=== PATIENT | male | born 1970 | race Caucasian/White ===

== ENCOUNTER 2020-09-24 18:21 | Emergency (ER) | payer MEDICAID, SELFPAY ==
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
[2020-09-24 18:24] VITALS: BP 85/68; PULSE 118; RESP 24; O2SAT 95; BMI 29.2
[2020-09-24 18:28] VITALS: BP 108/65; PULSE 110; O2SAT 94
[2020-09-24] MEDS: Morphine Sulfate 4 MG/ML CARTRIDGE IVPUSH (18:30)
[2020-09-24] MEDS: iohexoL 350 MG/ML 100 ML INFUS..BTL IV (18:41)
[2020-09-24] MEDS: 0.9 % Sodium Chloride 1,000 ML 999 ML IVCONT ×2 (18:44→19:40)
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
[2020-09-24] MEDS: ondansetron HCL 4 MG/2 ML VIAL IVPUSH (19:31)
[2020-09-24 19:32] VITALS: BP 95/48; PULSE 97; RESP 14; O2SAT 95
[2020-09-24] MEDS: Piperacillin Sodium/Tazobactam 3.375 GM in 0.9 % Sodium Chloride 50 ML IV (19:50)
[2020-09-24] MEDS: Diphth,Pertus(ACell),Tet Adult 0.5 ML SYRINGE IM (19:57)
[2020-09-24 20:00] VITALS: BP 112/70; PULSE 87; RESP 19; O2SAT 94
[2020-09-24 20:32] LABS: COVID-19 Test Negative (Negative)
--- NOTE | 2020-09-24 20:34 | PC.NURSE ---
This RN attempted report to [facility] x 4. This RN called [phone] x 2 and was transferred to appropriate number. After transfer, automated message stating this transfer was unsuccessful prior to automatically disconnecting call. This RN called [phone] x 2 which was the direct number given by a company secretary who answered the previous number which was a busy signal. Charge Tamar Dolan RN aware.
== END 2020-09-24 20:25 | disposition short-term general hospital (02) ==
LOC: HO.ED 20:20
PROVIDERS: Emergency Provider Internal Medicine
DX: S31.115A Laceration without foreign body of abdominal wall, periumbilic region without penetration into peritoneal cavity, initial encounter (principal); S31.119A Laceration without foreign body of abdominal wall, unspecified quadrant without penetration into peritoneal cavity, initial encounter; W26.9XXA Contact with unspecified sharp object(s), initial encounter; Y93.9 Activity, unspecified; Y92.9 Unspecified place or not applicable; Y99.9 Unspecified external cause status; Z20.822 Contact with and (suspected) exposure to COVID-19
CPT/HCPCS: 36415; 74177; 87635; 90471; 90715; 96361; 96365; 96375; 99285; J2270; J2405; J2543; Q9967

== ENCOUNTER 2021-01-02 12:26 | Emergency (ER) | payer MEDICAID, SELFPAY ==
[2021-01-02 14:59] VITALS: BP 148/100; PULSE 77; RESP 18; TEMP 37; O2SAT 100; BMI 30.7
--- NOTE | 2021-01-02 15:11 | ED.DENTAL ---
HPI - Dental/Oral General Chief complaint: Dental/Oral Stated complaint: dental pain Time Seen by Provider: 01/02/21 15:11 Source: patient Mode of arrival: ambulatory Limitations: no limitations History of Present Illness HPI Narrative: last night patient developed dental pain, noticed swelling today. Complaint: tooth pain Onset (ago): day(s) Duration: constant Severity: severe Relieving factors: nothing Exacerbating factors: nothing Context: history of dental caries Treatment prior to arrival: none Related Data Previous Rx's Medication Instructions Recorded amoxicillin 875 mg-potassium 1 tab PO BID #20 tab 01/02/21 clavulanate 125 mg tablet (Augmentin) naproxen 500 mg tablet (Naprosyn) 500 mg PO BID #20 tab 01/02/21 Allergies Allergy/AdvReac Type Severity Reaction Status Date / Time No Known Allergies Allergy Verified 09/24/20 18:27 Review of Systems Constitutional: Constitutional: Reports no additional constitutional complaints Eyes: Eyes: Reports no additional eye complaints ENT: Denies dizziness Cardiovascular: Cardiovascular: Reports no additional cardiovascular complaints Respiratory: Respiratory: Reports as per HPI Gastrointestinal: Gastrointestinal: Reports no additional gastrointestinal complaints Musculoskeletal: Musculoskeletal: Reports no additional musculoskeletal complaints Integumentary/Breasts: Skin/Breast: Denies rash Neurologic: Reports system reviewed and no additional complaints, except as documented, Denies dizziness and Denies Sensory deficit (Neuro) Psychiatric: Psychiatric: Denies anxiety PMFSH Past Medical History Medical History No known health problems Social History Social History Advance Directives: No Advance Directives Information Provided: No Physical Exam Vital Signs: Vital Signs: Last Vital Signs Temp 98.6 F 01/02/21 14:59 Pulse 77 01/02/21 14:59 Resp 18 01/02/21 14:59 BP 148/100 H 01/02/21 14:59 Pulse Ox 100 01/02/21 14:59 Body Mass Index 30.7 Const: General: healthy appearing Nutritional Appearance: average body habitus Orientation/consciousness: oriented to person and patient oriented x3 Limitations: no limitations HENMT: Other: no trismus, poor dentition, very tender along gum line but no fluctuance, no airway obstruction Head: Yes normal to inspection Ears: external ears normal General nose exam: Normal external nose present Mouth: Normal oral and palatal mucosa present and oropharynx normal Throat: Yes posterior oropharynx normal Eyes: General: appearance normal, both eyes and all related structures Neck: Other: supple Neck: Yes normal visual inspection Chest: Chest palpation & inspection: normal inspection of the chest Resp: Auscultation: clear to auscultation bilaterally Cardio: Jugular venous distension: no JVD Rate: regular rate Rhythm: regular rhythm Heart sounds: S1 normal heart sound present and S2 normal heart sound present GI: Inspection: Yes normal to inspection Palpation (GI): Soft to palpation, nontender and No hepatosplenomegaly present Auscultation: normal bowel sounds : General: Yes no CVA tenderness Back/Spine/Pelvis: Back: no CVA tenderness Skin: General skin exam: no rashes or lesions noted Neuro: General: oriented to person and patient oriented x3 Cranial nerves: Yes CN's II-XII intact bilaterally Motor exam (neuro): 5/5 motor strength present throughout Sensory Exam: No Sensory deficit (Neuro) Extrem: General: Yes normal to inspection Psych: Appearance: grossly normal Course Reevaluation(s) Reevaluation #1: no fluctuance, nothing to drain, will start oral abx and refer to dentist Time: 15:19 Discharge Plan Discharge Clinical Impression: Toothache, Dental caries, Dental abscess Patient Disposition: Home, Self-Care Instructions: Dental Abscess (ED), Toothache (ED) Prescriptions: New amoxicillin-pot clavulanate [Augmentin] 875-125 mg tablet 1 tab PO BID Qty: 20 RF: 0 naproxen [Naprosyn] 500 mg tablet 500 mg PO BID Qty: 20 RF: 0
[2021-01-02] MEDS: Amoxicillin/Potassium Clav 875 MG TABLET PO (15:25)
[2021-01-02] MEDS: Ketorolac Tromethamine 60 MG/2 ML VIAL IM (15:25)
--- NOTE | 2021-01-02 15:37 | PC.NURSE ---
PT AWAKE, ALERT AND ORIENTED X 3. SKIN WARM AND DRY. RESP UNLABORED. AIRWAY PATENT. SPEAKING IN FULL CLEAR SENTENCES. REPORTS LEFT SIDED DENTAL PAIN WITH FACIAL SWELLING. EVALUATED BY MD SCHAEFER. PLAN IS FOR DC HOME WITH MEDS. PT AWARE AND AGREEABLE TO PLAN.
== END 2021-01-02 15:39 | disposition home or self-care (01) ==
PROVIDERS: Emergency Provider Emergency Medicine
DX: K04.7 Periapical abscess without sinus (principal); K02.9 Dental caries, unspecified
CPT/HCPCS: 96372; 99283; 99284; J1885

== ENCOUNTER 2021-10-28 17:39 | Emergency (ER) | payer MEDICAID, SELFPAY ==
--- NOTE | ~2021-10-28 | CT_ITS ---
EXAMINATION: NONCONTRAST HEAD CT NONCONTRAST CERVICAL SPINE CT INDICATION INFORMATION: Headache. Neck pain. Fall off deck. COMPARISON: None TECHNIQUE: Separate noncontrast CT examinations of the head and cervical spine were performed. Coronal and sagittal images were created for each examination at the technologist workstation. This CT examination was performed using dose optimization techniques as appropriate, variously including the following: *Automated exposure control *Adjustment of mA and/or kV according to patient size (this includes techniques or standardized protocols for targeted exams where dose is matched to indication/reason for exam; i.e. extremities or head) *Use of iterative reconstruction technique DLP: 1453 mGy-cm FINDINGS: Head: There is no evidence of acute intracranial hemorrhage or territorial infarction. No abnormal mass effect or midline shift is seen. Woods to white matter differentiation is well preserved. No extra-axial fluid collections are identified. No hydrocephalus. No significant volume loss. There is no abnormal attenuation within the brain parenchyma. No acute osseous or soft tissue abnormality. The mastoid air cells and visualized portions of the paranasal sinuses are well aerated. Cervical spine: Motion significantly limits the evaluation. The extent of motion makes it such that fracture cannot be assessed. Alignment cannot be assessed. Moderate right-sided pleural effusion is noted. CT/CT head/brain wo con IMPRESSION: 1. No acute intracranial finding. 2. There is significant motion on the cervical spine CT, making this study essentially nondiagnostic. Cannot evaluate for cervical fracture or alignment. 3. Moderate right-sided pleural effusion noted.
--- NOTE | ~2021-10-28 | XR_ITS ---
EXAMINATION: XR CHEST CLINICAL INFORMATION: Trauma COMPARISON: None TECHNIQUE: Frontal view of the chest was obtained. FINDINGS: Lung volumes are low. Bronchial wall thickening noted with streaky basilar opacities. No pleural effusion or pneumothorax. The cardiomediastinal silhouette is within normal limits. No acute osseous abnormality. XR/XR chest 1V IMPRESSION: Low lung volumes with basilar atelectasis. Bronchial wall thickening could be associated with a small airways process. No displaced fractures are seen.
--- NOTE | ~2021-10-28 | CT_ITS ---
EXAMINATION: NONCONTRAST HEAD CT NONCONTRAST CERVICAL SPINE CT INDICATION INFORMATION: Headache. Neck pain. Fall off deck. COMPARISON: None TECHNIQUE: Separate noncontrast CT examinations of the head and cervical spine were performed. Coronal and sagittal images were created for each examination at the technologist workstation. This CT examination was performed using dose optimization techniques as appropriate, variously including the following: *Automated exposure control *Adjustment of mA and/or kV according to patient size (this includes techniques or standardized protocols for targeted exams where dose is matched to indication/reason for exam; i.e. extremities or head) *Use of iterative reconstruction technique DLP: 1453 mGy-cm FINDINGS: Head: There is no evidence of acute intracranial hemorrhage or territorial infarction. No abnormal mass effect or midline shift is seen. Woods to white matter differentiation is well preserved. No extra-axial fluid collections are identified. No hydrocephalus. No significant volume loss. There is no abnormal attenuation within the brain parenchyma. No acute osseous or soft tissue abnormality. The mastoid air cells and visualized portions of the paranasal sinuses are well aerated. Cervical spine: Motion significantly limits the evaluation. The extent of motion makes it such that fracture cannot be assessed. Alignment cannot be assessed. Moderate right-sided pleural effusion is noted. CT/CT cervical spine wo con IMPRESSION: 1. No acute intracranial finding. 2. There is significant motion on the cervical spine CT, making this study essentially nondiagnostic. Cannot evaluate for cervical fracture or alignment. 3. Moderate right-sided pleural effusion noted.
--- NOTE | ~2021-10-28 | CT_ITS ---
EXAMINATION: CT CHEST, ABDOMEN AND PELVIS WITH CONTRAST CLINICAL INFORMATION: Reason for Exam lower back and upper abd pain post Fall off deck COMPARISON: CT abdomen pelvis 09/24/2020 TECHNIQUE: Multidetector volumetric imaging was performed from the thoracic inlet through the pubic symphysis following administration of 85 mL of Omnipaque 350. Sagittal and coronal reformatted images were obtained on the technologist's workstation. This CT examination was performed using dose optimization techniques as appropriate, variously including the following: *Automated exposure control *Adjustment of mA and/or kV according to patient size (this includes techniques or standardized protocols for targeted exams where dose is matched to indication/reason for exam; i.e. extremities or head) *Use of iterative reconstruction technique DLP: 1121 mGy-cm FINDINGS: CHEST: Lungs and Pleura: There is right basilar atelectasis with a moderate right-sided pleural effusion. Mediastinum: The mediastinum is normal. The central vascular structures are unremarkable. No hilar or mediastinal lymphadenopathy. Pericardium/Pleura: There is a moderate size right pleural effusion present Chest Wall/Axilla: There may be multiple right anterolateral rib fractures involving the third through ninth ribs, but assessment is difficult secondary to marked motion artifact. Recommend rib radiographs if this information is clinically important. Moderate-sized right pleural effusion is present. ABDOMEN/PELVIS: Severe motion artifact limits the examination. Peritoneal Space: High density fluid is present in the cul-de-sac consistent with some hemorrhage. Liver, Gallbladder, Biliary Tree: There is a linear area of hypodensity seen in the liver and a liver laceration is suspected. No gross gallbladder abnormality is seen Pancreas: Unremarkable Spleen: Unremarkable Adrenal Glands: Unremarkable Kidneys and Ureters: The kidneys are normal in size, shape, and attenuation. There is marked motion artifact. No hydronephrosis, hydroureter, or calculi seen. No perinephric stranding. Bladder: Unremarkable Gastrointestinal Tract: The small and large bowel are unremarkable. The appendix is unremarkable. Abdominal Wall: No significant hernia is appreciated. Lymph Nodes: No lymphadenopathy. Vascular: There is calcific aortic plaque. No aneurysm or evidence of injury. The IVC appears unremarkable. PELVIC VISCERA: Unremarkable OSSEUS STRUCTURES: See discussion above regarding possible right rib fractures. No other definite fractures are seen. CT/CT abdomen pelvis w con IMPRESSION: 1. Extremely poor quality study with artifact. 2. There is evidence of a liver laceration at the dome of the liver with associated blood in the pelvis. 3. Right-sided rib most likely present with associated probable hemothorax, although the fluid measures water density on this study. This critical result was discussed with Dr. Marshall at 10:00 PM on the day the exam and it was ascertained that the content and urgency of the report was understood at the time of direct communication. Fleischner guidelines were followed.
--- NOTE | ~2021-10-28 | XR_ITS ---
EXAMINATION: XR CHEST CLINICAL INFORMATION: Status post chest tube COMPARISON: Chest radiograph 5:45 PM 10/28/2021, CT chest abdomen pelvis 10/28/2021 8:46 PM TECHNIQUE: Frontal view of the chest was obtained. FINDINGS: Since the prior chest radiograph a right-sided chest tube has been placed. No pneumothorax is seen. Heart size is normal. Rib fractures which were suspected on the prior CT are not confirmed on plain film radiograph as no displaced rib fractures are detected XR/XR chest 1V IMPRESSION: Right-sided chest tube has been placed. No pneumothorax.
[2021-10-28 17:57] LABS: MANUAL DIFF FLAG NO
[2021-10-28 17:59] VITALS: BP 92/59; PULSE 120; RESP 24
[2021-10-28 18:04] VITALS: BP 104/69; PULSE 104; RESP 20; TEMP 36.7; O2SAT 94; BMI 32.3
[2021-10-28 18:05] LABS: Prothrombin Time 11.6 SEC (10.0-13.1)
[2021-10-28 18:08] LABS: Partial Thromboplastin Time 30.5 SEC (26.0-36.4)
[2021-10-28 18:22] LABS: Alanine Aminotransferase 48 U/L (0-40); Albumin Level 4.5 g/dL (3.5-5.0); Alkaline Phosphatase 107 U/L (39-117); Anion Gap 16 (12-20); Aspartate Amino Transferase 75 U/L (5-37); Bilirubin Total 0.6 mg/dL (0.0-1.0); Blood Urea Nitrogen 9 mg/dL (9-16); Calcium 9.4 mg/dL (8.4-10.2); Carbon Dioxide 24 mmol/L (22-29); Chloride 103 mmol/L (96-108); Creatinine Clr Calc Pharmacy 94.1; Estimated Glomerular Filt Rate > 60; Ethanol 99 mg/dL; Glucose Random 142 mg/dL (60-115); Sodium 139 mmol/L (135-145); Total Protein 7.8 g/dL (6.5-8.0)
[2021-10-28] MEDS: Morphine Sulfate 4 MG/ML CARTRIDGE IVPUSH (18:24)
[2021-10-28] MEDS: cefTRIAXone sodium 1 GM in 0.9 % Sodium Chloride 50 ML IV (18:24)
[2021-10-28] MEDS: Diphth,Pertus(ACell),Tet Adult 0.5 ML SYRINGE IM (18:25)
[2021-10-28] MEDS: 0.9 % Sodium Chloride 1,000 ML 999 ML IV ×2 (18:26→21:15)
[2021-10-28 18:28] LABS: Basophils Percent Auto 0.2 % (0-2); Eosinophils Percent Auto 0.2 % (0-4); Hematocrit 41.1 % (42.0-52.0); Hemoglobin 13.5 g/dl (14.0-18.0); Imm Gran Abs Auto 0.12 X10*3/uL (0.00-0.03); Imm Gran Pct Auto 0.8 % (0.0-0.4); Lymphocytes Absolute Auto 1.5 X10*3/uL (1.2-4.9); Lymphocytes Percent Auto 10.4 % (20-40); Mean Corpuscular HGB Conc 32.8 g/dl (31.0-36.0); Mean Corpuscular Hemoglobin 28.9 pg (27.0-33.0); Mean Platelet Volume 8.6 fL (9.4-12.4); Monocytes Absolute Auto 0.6 X10*3/uL (0.1-1.2); Monocytes Percent Auto 4.1 % (2-11); Neutrophils Absolute Auto 12.2 x10*3/uL (2.0-8.3); Neutrophils Percent Auto 84.3 % (45-73); Platelet Count 316 X10*3/uL (160-400); Red Blood Count 4.67 X10*6/uL (4.60-5.80); Red Cell Distribution Width 12.4 % (11.0-16.0); White Blood Count 14.5 X10*3/uL (4.8-10.8)
[2021-10-28 18:35] VITALS: BP 100/64; PULSE 91; RESP 26; O2SAT 96
--- NOTE | 2021-10-28 18:36 | PC.NURSE ---
attempted to go to CT, unable to tolerate procedure due to inability to lay flat. Medicated with pain med, will reattempt. Denies pain when sitting up. Speaking in full sentences, skin w/d/p
[2021-10-28] MEDS: Midazolam HCl/PF 2 MG/2 ML VIAL IVPUSH ×3 (18:59→21:25)
[2021-10-28] MEDS: HYDROmorphone HCl 2 MG/ML VIAL IVPUSH (19:37)
[2021-10-28 19:39] VITALS: BP 112/73; PULSE 79; RESP 26; O2SAT 98
--- NOTE | 2021-10-28 20:06 | ED_ITS ---
HPI - General Adult General Chief complaint: Fall <Corey Arriaza MD - Last Filed: 10/28/21 22:24> Stated complaint: Puncture Wound R side <Corey Arriaza MD - Last Filed: 10/28/21 22:24> Time Seen by Provider: 10/28/21 17:52 <Corey Arriaza MD - Last Filed: 10/28/21 22:24> Source: patient <ASHIA Uriostegui - Last Filed: 10/28/21 23:44> Mode of arrival: ambulatory <ASHIA Uriostegui - Last Filed: 10/28/21 23:44> Limitations: no limitations <ASHIA Uriostegui - Last Filed: 10/28/21 23:44> History of Present Illness HPI narrative: 51 yold male presents to the ED for right sided chest wall puncture wound. Patient states he fell off the deck while working and sharp object tool on the ground hit his chest. patient did not have helmet on or loss consciousness. patient denies being stabbed or shot. <ASHIA Uriostegui - Last Filed: 10/28/21 23:44> Related Data Home medications: Previous Rx's Medication Instructions Recorded amoxicillin 875 mg-potassium 1 tab PO BID #20 tabs 01/02/21 clavulanate 125 mg tablet (Augmentin) naproxen 500 mg tablet (Naprosyn) 500 mg PO BID #20 tabs 01/02/21 <Corey Arriaza MD - Last Filed: 10/28/21 22:24> Allergies/adverse reactions: Allergies Allergy/AdvReac Type Severity Reaction Status Date / Time No Known Allergies Allergy Verified 09/24/20 18:27 <Corey Arriaza MD - Last Filed: 10/28/21 22:24> Review of Systems Review of Systems: Chest wall puncture wound <ASHIA Uriostegui - Last Filed: 10/28/21 23:44> PMFSH Past Medical History Medical History: Medical History No known health problems <Corey Arriaza MD - Last Filed: 10/28/21 22:24> Social History Social History: Social History Advance Directives: No Advance Directives Information Provided: No <Corey Arriaza MD - Last Filed: 10/28/21 22:24> Physical Exam ED Vital Signs: Vital Signs - 24 hr 10/28/21 17:59 10/28/21 18:04 10/28/21 18:35 Temperature 98.0 F Pulse Rate 120 H 104 H 91 Respiratory Rate 24 H 20 26 H Blood Pressure 92/59 L 104/69 100/64 Pulse Oximetry 94 96 Oxygen Delivery Method Room Air Nasal Cannula Oxygen Flow Rate 3 10/28/21 19:39 10/28/21 21:08 10/28/21 21:36 Temperature Pulse Rate 79 103 H 107 H Respiratory Rate 26 H 25 H 24 H Blood Pressure 112/73 132/75 138/72 Pulse Oximetry 98 97 94 Oxygen Delivery Method Nasal Cannula Nasal Cannula Nasal Cannula Oxygen Flow Rate 3 4 5 BMI result Body Mass Index 32.3 <Corey Arriaza MD - Last Filed: 10/28/21 22:24> Vital Signs - 24 hr 10/28/21 17:59 10/28/21 18:04 10/28/21 18:35 Temperature 98.0 F Pulse Rate 120 H 104 H 91 Respiratory Rate 24 H 20 26 H Blood Pressure 92/59 L 104/69 100/64 Pulse Oximetry 94 96 Oxygen Delivery Method Room Air Nasal Cannula Oxygen Flow Rate 3 10/28/21 19:39 10/28/21 21:08 10/28/21 21:36 Temperature Pulse Rate 79 103 H 107 H Respiratory Rate 26 H 25 H 24 H Blood Pressure 112/73 132/75 138/72 Pulse Oximetry 98 97 94 Oxygen Delivery Method Nasal Cannula Nasal Cannula Nasal Cannula Oxygen Flow Rate 3 4 5 BMI result Body Mass Index 32.3 <ASHIA Uriostegui - Last Filed: 10/28/21 23:44> Const General: cooperative, healthy appearing, comfortable, no acute distress, well developed and alert <ASHIA Uriostegui - Last Filed: 10/28/21 23:44> Orientation/consciousness: patient oriented x3 <ASHIA Uriostegui - Last Filed: 10/28/21 23:44> HENMT Head: Yes normal to inspection, Yes No palpable skull fracture present, Yes normocephalic, Yes atraumatic and No abrasion <ASHIA Uriostegui Last Filed: 10/28/21 23:44> Eyes General: appearance normal, both eyes and all related structures <ASHIA Uriostegui Last Filed: 10/28/21 23:44> Neck Neck: Yes normal visual inspection, Yes full ROM, Yes no lymphadenopathy, Yes no meningeal signs, Yes trachea midline, Yes supple, No anterior neck swelling and No tender <ASHIA Uriostegui - Last Filed: 10/28/21 23:44> Chest Chest/axillae images: 1. puncture wound. <Corey Arriaza MD - Last Filed: 10/28/21 22:24> 1. puncture wound. <ASHIA Uriostegui - Last Filed: 10/28/21 23:44> Resp Effort & Inspection: normal respiratory effort and able to speak in complete sentences <ASHIA Uriostegui Last Filed: 10/28/21 23:44> Auscultation: diminished lung sounds on the right <ASHIA Uriostegui Last Filed: 10/28/21 23:44> Cardio Jugular venous distension: no JVD <ASHIA Uriostegui Last Filed: 10/28/21 23:44> Heart sounds: S1 normal heart sound present and S2 normal heart sound present <ASHIA Uriostegui Last Filed: 10/28/21 23:44> GI Inspection: Yes normal to inspection and No abdominal wall ecchymosis <ASHIA Uriostegui Last Filed: 10/28/21 23:44> Palpation (GI): Soft to palpation, not firm, nontender, no guarding and not rigid <ASHIA Uriostegui Last Filed: 10/28/21 23:44> Other: patient refuse to take off his pants <ASHIA Uriostegui Last Filed: 10/28/21 23:44> General: No CVA tenderness and Yes no CVA tenderness <ASHIA Uriostegui - Last Filed: 10/28/21 23:44> Back/Spine/Pelvis Other: negative for signs of trauma <ASHIA Uriostegui Last Filed: 10/28/21 23:44> Back: no CVA tenderness, No CVA tenderness and No back tenderness <ASHIA Uriostegui Last Filed: 10/28/21 23:44> Skin Other: right chest wall puncture wound <ASHIA Uriostegui Last Filed: 10/28/21 23:44> General skin exam: no rashes or lesions noted and elasticity normal <ASHIA Uriostegui Last Filed: 10/28/21 23:44> Neuro General: patient oriented x3, no meningeal signs and CN's II-XI intact bilaterally <ASHIA Uriostegui Last Filed: 10/28/21 23:44> Cranial nerves: Yes CN's II-XII intact bilaterally <ASHIA Uriostegui Last Filed: 10/28/21 23:44> Extrem Other: no obvious signs of trauma. REfuse to take pants off <ASHIA Uriostegui Last Filed: 10/28/21 23:44> General: Yes normal to inspection and Yes full ROM <ASHIA Uriostegui Last Filed: 10/28/21 23:44> Psych Appearance: grossly normal, well kempt and not disheveled <ASHIA Uriostegui Last Filed: 10/28/21 23:44> Course Course Course Narrative: Due to this being a trauma. imaging was ordered wiht IV contrast without labs to rule out any internal organ injuries. Ches4t xray ordered. patient plac ed on oxygen for 0s saturation of 92%. FLuids, ceftraixone, and tdap ordered <ASHIA Uriostegui Last Filed: 10/28/21 23:44> Reevaluation(s) Reevaluation #1: patent refused CT scan imaging many times due to back pain. Patient informed importance of imgaging to evaluate extense of injuries. Patient delaying his care.Patient kept changing story of trauma Pateitn given ativan, morphine, and dilaudid. Patient next given ketamine for Imaging. Dr. Pozo recommend patient be transferred to main ED. Wet read of neck CT shows upper chest which showed fluid chich could mean Hemthorax. Dr. Arriaza made aware and assumed CAre of case for possible chest tube <ASHIA Uriostegui Last Filed: 10/28/21 23:44> Time: 20:15 <ASHIA Uriostegui Last Filed: 10/28/21 23:44> Reevaluation #2: [address] [address] [address] Scan Report Signed Patient: Huy Brown MR#: [id number] : 1970 Acct:[id number] Age/Sex: 51 / M ADM Date: 10/28/21 Loc: HO.ED Attending Dr: Ordering Physician: Apolinar Jason Date of Service: 10/28/21 Procedure(s): CT head/brain wo con Accession Number(s): [id number] cc: Apolinar Jason~ EXAMINATION: NONCONTRAST HEAD CT NONCONTRAST CERVICAL SPINE CT INDICATION INFORMATION: Headache. Neck pain. Fall off deck. COMPARISON: None TECHNIQUE: Separate noncontrast CT examinations of the head and cervical spine were performed. Coronal and sagittal images were created for each examination at the technologist workstation. This CT examination was performed using dose optimization techniques as appropriate, variously including the following: *Automated exposure control *Adjustment of mA and/or kV according to patient size (this includes techniques or standardized protocols for targeted exams where dose is matched to indication/reason for exam; i.e. extremities or head) *Use of iterative reconstruction technique DLP: 1453 mGy-cm FINDINGS: Head: There is no evidence of acute intracranial hemorrhage or territorial infarction. No abnormal mass effect or midline shift is seen. Woods to white matter differentiation is well preserved. No extra-axial fluid collections are identified. No hydrocephalus. No significant volume loss. There is no abnormal attenuation within the brain parenchyma. No acute osseous or soft tissue abnormality. The mastoid air cells and visualized portions of the paranasal sinuses are well aerated. Cervical spine: Motion significantly limits the evaluation. The extent of motion makes it such that fracture cannot be assessed. Alignment cannot be assessed. Moderate right-sided pleural effusion is noted. CT/CT head/brain wo con IMPRESSION: ? 1. No acute intracranial finding. 2. There is significant motion on the cervical spine CT, making this study essentially nondiagnostic. Cannot evaluate for cervical fracture or alignment. 3. Moderate right-sided pleural effusion noted. ? <ASHIA Uriostegui - Last Filed: 10/28/21 23:44> Procedures Chest Tube Chest Tube 1: Chest Tube Location: right and anterior axillary line <Corey Arriaza MD - Last Filed: 10/28/21 22:24> Size of Tube (cm): 28 <Corey Arriaza MD - Last Filed: 10/28/21 22:24> Chest Tube Prep: Yes betadine prep and sterile drapes applied <Corey Arriaza MD - Last Filed: 10/28/21 22:24> Local Anesthetic: lidocaine 2% <Corey Arriaza MD - Last Filed: 10/28/21 22:24> Amount of anesthesia used (mL): 10 <Corey Arriaza MD - Last Filed: 10/28/21 22:24> Incision Made With: #11 blade <Corey Arriaza MD - Last Filed: 10/28/21 22:24> Post Procedure: sutured to skin and sterile dressing applied <Corey Arriaza MD - Last Filed: 10/28/21 22:24> Tube Drainage: blood <Corey Arriaza MD - Last Filed: 10/28/21 22:24> Amount of initial drainage (mL): 700 <Corey Arriaza MD - Last Filed: 10/28/21 22:24> Post Procedure CXR?: Yes <Corey Arriaza MD - Last Filed: 10/28/21 22:24> Patient Tolerated Procedure: Yes <Corey Arriaza MD - Last Filed: 10/28/21 22:24> Procedural Sedation Indication: other <Corey Arriaza MD - Last Filed: 10/28/21 22:24> Presedation Evaluation: Chest tube placed <Corey Arriaza MD - Last Filed: 10/28/21 22:24> ASA Class: I <Corey Arriaza MD - Last Filed: 10/28/21 22:24> Mallampati Class: I <Corey Arriaza MD - Last Filed: 10/28/21 22:24> Preparation: [employer] applied, pulse oximeter, capnometry used and supplemental O2 applied <Corey Arriaza MD - Last Filed: 10/28/21 22:24> Midazolam dose (mg): 2 <Corey Arriaza MD - Last Filed: 10/28/21 22:24> Ketamine: IM <Corey Arriaza MD - Last Filed: 10/28/21 22:24> Ketamine dose (mg): 200 <Corey Arriaza MD - Last Filed: 10/28/21 22:24> IV Propofol dose (mg): 200 <Corey Arriaza MD - Last Filed: 10/28/21 22:24> Patient Tolerated Procedure: well <Corey Arriaza MD - Last Filed: 10/28/21 22:24> Complications: none <Corey Arriaza MD - Last Filed: 10/28/21 22:24> Interventions: oxygen applied <Corey rAriaza MD - Last Filed: 10/28/21 22:24> Medical Decision Making MDM Narrative Medical decision making narrative: 1950: Patient status post fall about 15 ft onto a [place] on the right chest patient came with laceration about 1 in in the right 4th rib area in anterior axillary line complaining of shortness of breath increased pain chest x-ray showed mild pleural effusion CT C-spine done which showed pleural effusion likely hemothorax patient unable to lay flat getting a CT chest ultrasound of the right lung showed pleural effusion likely pneumothorax plan for chest tube. Patient saturating 98% at this time case discussed with thoracic surgeon no thoracic surgeon available at [facility] will get the CT chest and plan for transfer to [facility] 20:40: Chest CT showed moderate amount of R hemothorax , report is pending plan for CT chest tube placement 21:00 patient is status post right chest tube placement about 700 cc of blood drained case discussed with trauma surgeon Dr. Ceballos at [facility] accepted the patient for transfer. 22:15 radialologist called about the CT scan report patient had 6-7 cm laceratrion with peritoneal fluid along with right hemothorax Dr. Ceballos was informed <Corey Arriaza MD - Last Filed: 10/28/21 22:24> Lab Data Lab results reviewed: Yes I reviewed the patient's lab results. <Corey Arriaza MD - Last Filed: 10/28/21 22:24> Result diagrams: : 10/28/21 17:55 10/28/21 17:55 <Corey Arriaza MD - Last Filed: 10/28/21 22:24> Labs: Lab Results 10/28/21 10/28/21 10/28/21 Range/Units 17:55 17:55 17:55 WBC 14.5 H (4.8-10.8) X10*3/uL RBC 4.67 (4.60-5.80) X10*6/uL Hgb 13.5 L (14.0-18.0) g/dl Hct 41.1 L (42.0-52.0) % MCV 88.0 (80.0-98.0) fL MCH 28.9 (27.0-33.0) pg MCHC 32.8 (31.0-36.0) g/dl RDW 12.4 (11.0-16.0) % Plt Count 316 (160-400) X10*3/uL MPV 8.6 L (9.4-12.4) fL Immature Gran % (Auto) 0.8 H (0.0-0.4) % Neut % (Auto) 84.3 H (45-73) % Lymph % (Auto) 10.4 L (20-40) % [place] % (Auto) 4.1 (2-11) % Eos % (Auto) 0.2 (0-4) % Baso % (Auto) 0.2 (0-2) % Lymph # (Auto) 1.5 (1.2-4.9) X10*3/uL [place] # (Auto) 0.6 (0.1-1.2) X10*3/uL Eos # (Auto) 0.0 (0.0-0.4) X10*3/uL Baso # (Auto) 0.0 (0.0-0.2) X10*3/uL Abs Immat Gran (auto) 0.12 H (0.00-0.03) X10*3/uL Absolute Neuts (auto) 12.2 H (2.0-8.3) x10*3/uL Absolute Nucleated RBC 0.000 (0.0-0.012) X10*3/uL Nucleated RBC % (auto) 0.0 (0.0-0.2) /100WBC PT 11.6 (10.0-13.1) SEC INR 1.0 (0.9-1.1) APTT 30.5 (26.0-36.4) SEC Sodium 139 (135-145) mmol/L Potassium 4.0 (3.3-5.1) mmol/L Chloride 103 (96-108) mmol/L Carbon Dioxide 24 (22-29) mmol/L Anion Gap 16 (12-20) BUN 9 (9-16) mg/dL Creatinine 1.10 (0.5-1.4) mg/dL Estim Creat Clear Calc 94.1 Estimated GFR > 60 Random Glucose 142 H (60-115) mg/dL Calcium 9.4 (8.4-10.2) mg/dL Total Bilirubin 0.6 (0.0-1.0) mg/dL AST 75 H (5-37) U/L ALT 48 H (0-40) U/L Alkaline Phosphatase 107 (39-117) U/L Total Protein 7.8 (6.5-8.0) g/dL Albumin 4.5 (3.5-5.0) g/dL Ethyl Alcohol 99 mg/dL COVID-19 (AJ) (Negative) COVID-19 Clin Com 10/28/21 Range/Units 21:39 WBC (4.8-10.8) X10*3/uL RBC (4.60-5.80) X10*6/uL Hgb (14.0-18.0) g/dl Hct (42.0-52.0) % MCV (80.0-98.0) fL MCH (27.0-33.0) pg MCHC (31.0-36.0) g/dl RDW (11.0-16.0) % Plt Count (160-400) X10*3/uL MPV (9.4-12.4) fL Immature Gran % (Auto) (0.0-0.4) % Neut % (Auto) (45-73) % Lymph % (Auto) (20-40) % [place] % (Auto) (2-11) % Eos % (Auto) (0-4) % Baso % (Auto) (0-2) % Lymph # (Auto) (1.2-4.9) X10*3/uL [place] # (Auto) (0.1-1.2) X10*3/uL Eos # (Auto) (0.0-0.4) X10*3/uL Baso # (Auto) (0.0-0.2) X10*3/uL Abs Immat Gran (auto) (0.00-0.03) X10*3/uL Absolute Neuts (auto) (2.0-8.3) x10*3/uL Absolute Nucleated RBC (0.0-0.012) X10*3/uL Nucleated RBC % (auto) (0.0-0.2) /100WBC PT (10.0-13.1) SEC INR (0.9-1.1) APTT (26.0-36.4) SEC Sodium (135-145) mmol/L Potassium (3.3-5.1) mmol/L Chloride (96-108) mmol/L Carbon Dioxide (22-29) mmol/L Anion Gap (12-20) BUN (9-16) mg/dL Creatinine (0.5-1.4) mg/dL Estim Creat Clear Calc Estimated GFR Random Glucose (60-115) mg/dL Calcium (8.4-10.2) mg/dL Total Bilirubin (0.0-1.0) mg/dL AST (5-37) U/L ALT (0-40) U/L Alkaline Phosphatase (39-117) U/L Total Protein (6.5-8.0) g/dL Albumin (3.5-5.0) g/dL Ethyl Alcohol mg/dL COVID-19 (AJ) Negative (Negative) COVID-19 Clin Com See Note <Corey Arriaza MD - Last Filed: 10/28/21 22:24> Lab Results 10/28/21 10/28/21 10/28/21 Range/Units 17:55 17:55 17:55 WBC 14.5 H (4.8-10.8) X10*3/uL RBC 4.67 (4.60-5.80) X10*6/uL Hgb 13.5 L (14.0-18.0) g/dl Hct 41.1 L (42.0-52.0) % MCV 88.0 (80.0-98.0) fL MCH 28.9 (27.0-33.0) pg MCHC 32.8 (31.0-36.0) g/dl RDW 12.4 (11.0-16.0) % Plt Count 316 (160-400) X10*3/uL MPV 8.6 L (9.4-12.4) fL Immature Gran % (Auto) 0.8 H (0.0-0.4) % Neut % (Auto) 84.3 H (45-73) % Lymph % (Auto) 10.4 L (20-40) % [place] % (Auto) 4.1 (2-11) % Eos % (Auto) 0.2 (0-4) % Baso % (Auto) 0.2 (0-2) % Lymph # (Auto) 1.5 (1.2-4.9) X10*3/uL [place] # (Auto) 0.6 (0.1-1.2) X10*3/uL Eos # (Auto) 0.0 (0.0-0.4) X10*3/uL Baso # (Auto) 0.0 (0.0-0.2) X10*3/uL Abs Immat Gran (auto) 0.12 H (0.00-0.03) X10*3/uL Absolute Neuts (auto) 12.2 H (2.0-8.3) x10*3/uL Absolute Nucleated RBC 0.000 (0.0-0.012) X10*3/uL Nucleated RBC % (auto) 0.0 (0.0-0.2) /100WBC PT 11.6 (10.0-13.1) SEC INR 1.0 (0.9-1.1) APTT 30.5 (26.0-36.4) SEC Sodium 139 (135-145) mmol/L Potassium 4.0 (3.3-5.1) mmol/L Chloride 103 (96-108) mmol/L Carbon Dioxide 24 (22-29) mmol/L Anion Gap 16 (12-20) BUN 9 (9-16) mg/dL Creatinine 1.10 (0.5-1.4) mg/dL Estim Creat Clear Calc 94.1 Estimated GFR > 60 Random Glucose 142 H (60-115) mg/dL Calcium 9.4 (8.4-10.2) mg/dL Total Bilirubin 0.6 (0.0-1.0) mg/dL AST 75 H (5-37) U/L ALT 48 H (0-40) U/L Alkaline Phosphatase 107 (39-117) U/L Total Protein 7.8 (6.5-8.0) g/dL Albumin 4.5 (3.5-5.0) g/dL Ethyl Alcohol 99 mg/dL COVID-19 (AJ) (Negative) COVID-19 Clin Com 10/28/21 Range/Units 21:39 WBC (4.8-10.8) X10*3/uL RBC (4.60-5.80) X10*6/uL Hgb (14.0-18.0) g/dl Hct (42.0-52.0) % MCV (80.0-98.0) fL MCH (27.0-33.0) pg MCHC (31.0-36.0) g/dl RDW (11.0-16.0) % Plt Count (160-400) X10*3/uL MPV (9.4-12.4) fL Immature Gran % (Auto) (0.0-0.4) % Neut % (Auto) (45-73) % Lymph % (Auto) (20-40) % [place] % (Auto) (2-11) % Eos % (Auto) (0-4) % Baso % (Auto) (0-2) % Lymph # (Auto) (1.2-4.9) X10*3/uL [place] # (Auto) (0.1-1.2) X10*3/uL Eos # (Auto) (0.0-0.4) X10*3/uL Baso # (Auto) (0.0-0.2) X10*3/uL Abs Immat Gran (auto) (0.00-0.03) X10*3/uL Absolute Neuts (auto) (2.0-8.3) x10*3/uL Absolute Nucleated RBC (0.0-0.012) X10*3/uL Nucleated RBC % (auto) (0.0-0.2) /100WBC PT (10.0-13.1) SEC INR (0.9-1.1) APTT (26.0-36.4) SEC Sodium (135-145) mmol/L Potassium (3.3-5.1) mmol/L Chloride (96-108) mmol/L Carbon Dioxide (22-29) mmol/L Anion Gap (12-20) BUN (9-16) mg/dL Creatinine (0.5-1.4) mg/dL Estim Creat Clear Calc Estimated GFR Random Glucose (60-115) mg/dL Calcium (8.4-10.2) mg/dL Total Bilirubin (0.0-1.0) mg/dL AST (5-37) U/L ALT (0-40) U/L Alkaline Phosphatase (39-117) U/L Total Protein (6.5-8.0) g/dL Albumin (3.5-5.0) g/dL Ethyl Alcohol mg/dL COVID-19 (AJ) Negative (Negative) COVID-19 Clin Com See Note <ASHIA Uriostegui - Last Filed: 10/28/21 23:44> Imaging Data CT scan - head: Radiologist's impression: [place] [address] CT Scan Report Signed Patient: Huy Brown MR#: [id number] : 1970 Acct:[id number] Age/Sex: 51 / M ADM Date: 10/28/21 Loc: HO.ED Attending Dr: Ordering Physician: Apolinar Jason Date of Service: 10/28/21 Procedure(s): CT head/brain wo con Accession Number(s): [id number] cc: Apolinar Jason~ EXAMINATION: NONCONTRAST HEAD CT NONCONTRAST CERVICAL SPINE CT INDICATION INFORMATION: Headache. Neck pain. Fall off deck. COMPARISON: None TECHNIQUE: Separate noncontrast CT examinations of the head and cervical spine were performed. Coronal and sagittal images were created for each examination at the technologist workstation. This CT examination was performed using dose optimization techniques as appropriate, variously including the following: *Automated exposure control *Adjustment of mA and/or kV according to patient size (this includes techniques or standardized protocols for targeted exams where dose is matched to indication/reason for exam; i.e. extremities or head) *Use of iterative reconstruction technique DLP: 1453 mGy-cm FINDINGS: Head: There is no evidence of acute intracranial hemorrhage or territorial infarction. No abnormal mass effect or midline shift is seen. Woods to white matter differentiation is well preserved. No extra-axial fluid collections are identified. No hydrocephalus. No significant volume loss. There is no abnormal attenuation within the brain parenchyma. No acute osseous or soft tissue abnormality. The mastoid air cells and visualized portions of the paranasal sinuses are well aerated. Cervical spine: Motion significantly limits the evaluation. The extent of motion makes it such that fracture cannot be assessed. Alignment cannot be assessed. Moderate right-sided pleural effusion is noted. CT/CT head/brain wo con IMPRESSION: ? 1. No acute intracranial finding. 2. There is significant motion on the cervical spine CT, making this study essentially nondiagnostic. Cannot evaluate for cervical fracture or alignment. 3. Moderate right-sided pleural effusion noted. ? Dictated By: Hubert Martin MD Signed By: <Electronically signed by Hubert Martin MD in OV> <Corey Arriaza MD - Last Filed: 10/28/21 22:24> Chest x-ray: Radiologist's impression: [address] [address] XRay Report Signed Patient: Huy Brown MR#: [id number] : 1970 Acct:[id number] Age/Sex: 51 / M ADM Date: 10/28/21 Loc: HO.ED Attending Dr: Ordering Physician: Alecia Evans MD Date of Service: 10/28/21 Procedure(s): XR chest 1V Accession Number(s): [id number] cc: Alecia Evans MD~ EXAMINATION: XR CHEST CLINICAL INFORMATION: Trauma COMPARISON: None TECHNIQUE: Frontal view of the chest was obtained. FINDINGS: Lung volumes are low. Bronchial wall thickening noted with streaky basilar opacities. No pleural effusion or pneumothorax. The cardiomediastinal silhouette is within normal limits. No acute osseous abnormality. XR/XR chest 1V IMPRESSION: Low lung volumes with basilar atelectasis. Bronchial wall thickening could be associated with a small airways process. No displaced fractures are seen. ? Dictated By: Hubert Martin MD Signed By: <Electronically signed by Hubert Martin MD in OV> 10/28/21 1805 DD/ 51 <Corey Arriaza MD - Last Filed: 10/28/21 22:24> CT scan - chest: Radiologist's impression: [place] [id number] [place] [address] CT Scan Report Signed Patient: Huy Brown MR#: [id number] : 1970 Acct:[id number] Age/Sex: 51 / M ADM Date: 10/28/21 Loc: HO.ED Attending Dr: Ordering Physician: Apolinar Jason Date of Service: 10/28/21 Procedure(s): CT abdomen pelvis w con Accession Number(s): [id number] cc: Apolinar Jason~ EXAMINATION: CT CHEST, ABDOMEN AND PELVIS WITH CONTRAST CLINICAL INFORMATION: Reason for Exam lower back and upper abd pain post Fall off deck COMPARISON: CT abdomen pelvis 09/24/2020 TECHNIQUE: Multidetector volumetric imaging was performed from the thoracic inlet through the pubic symphysis following administration of 85 mL of Omnipaque 350. Sagittal and coronal reformatted images were obtained on the technologist's workstation. This CT examination was performed using dose optimization techniques as appropriate, variously including the following: *Automated exposure control *Adjustment of mA and/or kV according to patient size (this includes techniques or standardized protocols for targeted exams where dose is matched to indication/reason for exam; i.e. extremities or head) *Use of iterative reconstruction technique DLP: 1121 mGy-cm FINDINGS: CHEST: Lungs and Pleura: There is right basilar atelectasis with a moderate right-sided pleural effusion. Mediastinum: The mediastinum is normal. The central vascular structures are unremarkable. No hilar or mediastinal lymphadenopathy. Pericardium/Pleura: There is a moderate size right pleural effusion present Chest Wall/Axilla: There may be multiple right anterolateral rib fractures involving the third through ninth ribs, but assessment is difficult secondary to marked motion artifact. Recommend rib radiographs if this information is clinically important. Moderate-sized right pleural effusion is present. ABDOMEN/PELVIS: Severe motion artifact limits the examination. Peritoneal Space: High density fluid is present in the cul-de-sac consistent with some hemorrhage. Liver, Gallbladder, Biliary Tree: There is a linear area of hypodensity seen in the liver and a liver laceration is suspected. No gross gallbladder abnormality is seen Pancreas: Unremarkable Spleen: Unremarkable Adrenal Glands: Unremarkable Kidneys and Ureters: The kidneys are normal in size, shape, and attenuation. There is marked motion artifact. No hydronephrosis, hydroureter, or calculi seen. No perinephric stranding. Bladder: Unremarkable Gastrointestinal Tract: The small and large bowel are unremarkable. The appendix is unremarkable. Abdominal Wall: No significant hernia is appreciated. Lymph Nodes: No lymphadenopathy. Vascular: There is calcific aortic plaque. No aneurysm or evidence of injury. The IVC appears unremarkable. PELVIC VISCERA: Unremarkable OSSEUS STRUCTURES: See discussion above regarding possible right rib fractures. No other definite fractures are seen. CT/CT abdomen pelvis w con IMPRESSION: 1.? Extremely poor quality study with artifact. 2.? There is evidence of a liver laceration at the dome of the liver with associated blood in the pelvis. 3.? Right-sided rib most likely present with associated probable hemothorax, although the fluid measures water density on this study. ? This critical result was discussed with Dr. Marshall at 10:00 PM on the day the exam and it was ascertained that the content and urgency of the report was understood at the time of direct communication. ? Fleischner guidelines were followed. Dictated By: Raghavendra Au MD Signed By: <Electronically signed by Raghavendra Au MD in OV> 10/28/213 DD/ 03 TD/TT:? Claims Auditor: SS <Corey Arriaza MD - Last Filed: 10/28/21 22:24> Critical Care Time Critical Care Time Critical Care Time: Yes <Corey Arriaza MD - Last Filed: 10/28/21 22:24> Total Critical Care Time: 90 <Corey Arriaza MD - Last Filed: 10/28/21 22:24> Attestation: I spent 90 minutes of critical care, with interventions, assessments, speaking to patient, consultants, and family. <Corey Arriaza MD - Last Filed: 10/28/21 22:24> Discharge Plan Discharge Clinical Impression: Hemothorax on right, Trauma, Fracture, ribs, Liver laceration <Corey Arriaza MD - Last Filed: 10/28/21 22:24> Patient Disposition: [facility] <Corey Arriaza MD - Last Filed: 10/28/21 22:24> Transfer Details: Right hemothorax status post chest tube placement [facility] Dr. Dannie Ceballos MD <Corey Arriaza MD - Last Filed: 10/28/21 22:24> Right hemothorax status post chest tube placement [facility] Dr. Dannie Ceballos MD <ASHIA Uriostegui - Last Filed: 10/28/21 23:44> Prescriptions: No Action amoxicillin-pot clavulanate [Augmentin] 875-125 mg tablet 1 tab PO BID Qty: 20 0RF naproxen [Naprosyn] 500 mg tablet 500 mg PO BID Qty: 20 0RF <Corey Arriaza MD - Last Filed: 10/28/21 22:24>
[2021-10-28] MEDS: Ketamine HCl 500 MG/5 ML VIAL 200 MG IM (20:13)
[2021-10-28] MEDS: propofoL 200 MG/20 ML VIAL 100 MG IVPUSH (20:46)
[2021-10-28] MEDS: iohexoL 350 MG/ML 100 ML INFUS..BTL IV (20:58)
[2021-10-28 21:08] VITALS: BP 132/75; PULSE 103; RESP 25; O2SAT 97
[2021-10-28] MEDS: fentaNYL citrate/PF 100 MCG/2 ML VIAL IVPUSH (21:21)
[2021-10-28] MEDS: Haloperidol Lactate 5 MG/ML VIAL IM (21:31)
[2021-10-28 21:36] VITALS: BP 138/72; PULSE 107; RESP 24; O2SAT 94
[2021-10-28 22:00] LABS: COVID-19 Test Negative (Negative); IDNOW Serial# 9DB6401D
--- NOTE | 2021-10-29 01:57 | PC.NURSE ---
Assumed care of this pt. at appx. 1999. Pt. was unable to obtain CT scan by previous nurse x4. Medicated pt. with 200mg IM Ketamine x1. Pt. became increasingly aggressive and uncooperative with staff, refusing to sit down in bed but almost falling over. Sat pt. down and brought to CT scan where he became increasingly uncooperative, thrashing and attempting to kick at staff. Per MD Joanna, 50mcg of IVP Propofol administered with respiratory at bedside because pt. did not have an artifical airway established. Attempted again to obtain CT unsuccessfully. Another 50mcg IVP Propofol per MD. CT scan obtained. Pt. continued to be aggressive and threatening towards staff after CT. Moved pt. back to room with MD Joanna and MD Nathan at bedside to place chest tube. Pt. continued to be restless, aggressive, threatening and uncooperative despite many attempts at redirection from multiple staff members. Security at bedside and respiratory therapist remains at bedside. Pt. on 4L NC sats 95%. 50mcg Propofol x2 administered to pt. by MD Joanna with minimal effect. IM Haldol 5mg administered with minimal effect, pt. continues with aggressive behavior and attempting to remove chest tube. 2mg Versed x2 administered. Chest tube placed with appx. 700cc nelida red blood out immediately. Transport called and pt. to be transported to trauma at [facility]. Report called to receiving RN at [facility]. 100mcg Fentanyl, 2mg additional Versed and 50mcg additional Propofol administered to pt. by MD Joanna prior to transport for continued aggressive and restless behavior. Report called to [facility], pt. transported out via EMS, stable, chest tube capped for transport, in place and functioning properly. COVID negative.
[2021-10-29 02:13] VITALS: BP 132/83; PULSE 112; RESP 22; O2SAT 64
[2021-10-29] MEDS: propofoL 200 MG/20 ML VIAL 100 MG IVPUSH ×2 (02:13→02:15)
[2021-10-29 02:15] VITALS: BP 144/74; PULSE 110; RESP 20; O2SAT 95
== END 2021-10-28 21:30 | disposition short-term general hospital (02) ==
PROVIDERS: Physician Assistant; Emergency Provider Internal Medicine
DX: S27.1XXA Traumatic hemothorax, initial encounter (principal); S21.131A Puncture wound without foreign body of right front wall of thorax without penetration into thoracic cavity, initial encounter; S27.0XXA Traumatic pneumothorax, initial encounter; S36.114A Minor laceration of liver, initial encounter; S30.811A Abrasion of abdominal wall, initial encounter; S22.43XA Multiple fractures of ribs, bilateral, initial encounter for closed fracture; R06.02 Shortness of breath; R07.89 Other chest pain; J90 Pleural effusion, not elsewhere classified; R51.9 Headache, unspecified; M54.2 Cervicalgia; W01.111A Fall on same level from slipping, tripping and stumbling with subsequent striking against power tool or machine, initial encounter; Y93.9 Activity, unspecified; Y92.007 Garden or yard of unspecified non-institutional (private) residence as the place of occurrence of the external cause; Y99.9 Unspecified external cause status; Z79.899 Other long term (current) drug therapy; Z20.822 Contact with and (suspected) exposure to COVID-19
CPT/HCPCS: 32551; 36415; 70450; 71045; 71260; 72125; 74177; 80053; 82077; 85025; 85610; 85730; 87635; 90471; 90715; 96361; 96365; 96372; 96375; 96376; 99285; J0696; J1170; J2250; J2270; J3010; Q9967

== ENCOUNTER 2023-12-16 04:58 | Emergency (ER) | payer MEDICAID, SELFPAY ==
[2023-12-16 05:00] VITALS: BP 137/92; PULSE 94; RESP 14; O2SAT 90
--- NOTE | 2023-12-16 05:00 | ED_ITS ---
HPI - Altered Mental Status General Chief Complaint: Altered Mental Status Stated Complaint: Unresponsive Time Seen by Provider: 12/16/23 05:00 Source: patient and other ([facility] staff) Mode of arrival: wheelchair Limitations: altered mental status History of Present Illness ED Provider: Dr. Ruiz HPI narrative: Patient was on the admission floor of [facility] with his who is a surgical patient. He is on methadone and was found unresponsive with pinpoint pupils. complaint: altered mental status Onset (ago): minute(s) Related Data Previous Rx's ?Medication ?Instructions ?Recorded amoxicillin 875 mg-potassium 1 tab PO BID #20 tabs 01/02/21 clavulanate 125 mg tablet (Augmentin) naproxen 500 mg tablet (Naprosyn) 500 mg PO BID #20 tabs 01/02/21 Allergies Allergy/AdvReac Type Severity Reaction Status Date / Time No Known Allergies Allergy Verified 12/16/23 05:13 Review of Systems Review of Systems: Yes Unobtainable due to mental status Neurologic: Denies Sensory deficit (Neuro) [facility] Past Medical History Medical History No known health problems Social History Social History Smoked in Last 30 Days: Yes Use of substances other than those prescribed or required for medical reasons: Yes Substance Use Type: Crack/Cocaine Substance Use Frequency: Chronic Longstanding Advance Directives: No Advance Directives Information Provided: No Do you have a plan to hurt others: No Plan Physical Exam ED Vital Signs: Vital Signs - 24 hr 12/16/23 05:00 12/16/23 05:16 Temperature 98.4 F Pulse Rate 94 92 Respiratory Rate 14 18 Blood Pressure 137/92 H 159/96 H Pulse Oximetry 90 L 95 Oxygen Delivery Method Room Air Room Air BMI result Body Mass Index 309.6 Const Other: Male looking older than stated age, unresponsive, drooling, O2 sat 85% on room air Nutritional Appearance: average body habitus Limitations: altered mental status HENMT Head: Yes normal to inspection Ears: external ears normal General nose exam: Normal external nose present Mouth: Normal oral and palatal mucosa present and oropharynx normal Throat: Yes posterior oropharynx normal Eyes Other: pin point pupils Neck Neck: Yes normal visual inspection Chest Chest palpation & inspection: normal inspection of the chest Resp Auscultation: clear to auscultation bilaterally Cardio Jugular venous distension: no JVD Rate: regular rate Rhythm: regular rhythm Heart sounds: S1 normal heart sound present and S2 normal heart sound present GI Inspection: Yes normal to inspection Palpation (GI): Soft to palpation, nontender and No hepatosplenomegaly present Auscultation: normal bowel sounds General: Yes no CVA tenderness Back/Spine/Pelvis Back: no CVA tenderness Skin General skin exam: no rashes or lesions noted Neuro Cranial nerves: Yes CN's II-XII intact bilaterally Motor exam (neuro): 5/5 motor strength present throughout Sensory Exam: No Sensory deficit (Neuro) Extrem General: Yes normal to inspection Psych Other: unresponsive Course Reevaluation(s) Reevaluation #1: patient received .2mg of narcan and woke up. Denies shooting states he might have taken too much methadone. Time: 06:30 Medications Administered Discontinued Medications Generic Name Dose Route Start Last Admin Trade Name Robertq PRN Reason Stop Dose Admin Naloxone HCl 0.2 mg 12/16/23 05:00 12/16/23 05:06 Naloxone Hcl 0.4 Mg/Ml Vial IVPUSH 12/16/23 05:01 0.2 mg STAT STA Administration Medical Decision Making Differential Diagnosis Differential Diagnoses: The differential diagnosis associated with the presentation includes (opiate overdose, cerebral bleed, seizure) Admission/Observation Consideration of admission/observation: Escalation of care including admission/observation considered (upon arrival patient considered for admission.) Independent Historian Clinical information obtained from an independent historian. History obtained from or confirmed by: Other (NSA and security) Tests considered The following testing was considered but not selected: Head CT considered but patient woke up after the .2mg of narcan Chronic Conditions Patient?s care impacted by: Other (polysubstance abuse) Discharge Plan Discharge Clinical Impression: Opiate overdose Patient Disposition: Home, Self-Care Instructions: Opioid Use Disorder (ED) Prescriptions: No Action amoxicillin-pot clavulanate [Augmentin] 875-125 mg tablet 1 tab PO BID Qty: 20 0RF naproxen [Naprosyn] 500 mg tablet 500 mg PO BID Qty: 20 0RF Referrals: [place],[facility] [Primary Care Provider] - 3 days Print Language: Persian
[2023-12-16] MEDS: Naloxone HCl 0.4 MG/ML VIAL 0.2 MG IVPUSH (05:06)
--- NOTE | 2023-12-16 05:09 | MHC.EDTECH ---
ALL BELONGINGS TAKEN TO DECON BY SECURITY. GLASSES AT BEDSIDE.
[2023-12-16 05:11] VITALS: BMI 309.6
[2023-12-16 05:16] VITALS: BP 159/96; PULSE 92; RESP 18; TEMP 36.9; O2SAT 95
[2023-12-16 06:49] VITALS: BP 159/96; PULSE 92; RESP 18; TEMP 36.9; O2SAT 95
== END 2023-12-16 06:50 | disposition home or self-care (01) ==
PROVIDERS: Emergency Provider Emergency Medicine
DX: T40.2X1A Poisoning by other opioids, accidental (unintentional), initial encounter (principal); R40.4 Transient alteration of awareness; Y92.230 Patient room in hospital as the place of occurrence of the external cause; F55.8 Abuse of other non-psychoactive substances; F11.20 Opioid dependence, uncomplicated; F17.210 Nicotine dependence, cigarettes, uncomplicated
CPT/HCPCS: 99283; 99284; J2310

== ENCOUNTER 2024-01-19 17:59 | Inpatient (IN) | payer OTHER, SELFPAY ==
--- NOTE | ~2024-01-19 | XR_ITS ---
EXAMINATION: XR KNEE, LEFT CLINICAL INFORMATION: Weakness. Pain. COMPARISON: None available. TECHNIQUE: Four views of the left knee. FINDINGS: Moderate to severe lateral compartment joint space narrowing. Mild patellofemoral and medial compartment joint space narrowing. Prominent tricompartmental marginal osteophytes. No acute fracture or dislocation. No concerning lytic or blastic osseous lesion. No significant joint effusion. XR/XR knee LT 4V IMPRESSION: Moderate to severe lateral as well as mild medial and patellofemoral compartment osteoarthritis. Electronically signed by: Adam Maria MD 01/22/2024 09:44 AM EDT
[2024-01-19 18:32] VITALS: BMI 30.4
[2024-01-19 18:33] VITALS: BP 112/63; PULSE 66; RESP 18; TEMP 36.6; O2SAT 96
[2024-01-19 20:00] VITALS: BP 147/79; PULSE 78; RESP 16; TEMP 36.6; O2SAT 97
[2024-01-19] MEDS: OLANZapine 5 MG TABLET PO ×3 (20:19→23:13)
[2024-01-19] MEDS: LORazepam 1 MG TABLET PO ×2 (20:19→21:41)
[2024-01-19] MEDS: Gabapentin 300 MG CAPSULE PO (21:41)
[2024-01-19] MEDS: traZODone HCL 50 MG TABLET PO ×2 (21:48→23:13)
--- NOTE | 2024-01-19 22:24 | PC.NURSE ---
HOSPITALIST NOTIFIED OF NEED TO EVALUATE CHEEK
[2024-01-19] MEDS: hydrOXYzine HCL 25 MG TABLET PO (23:13)
--- NOTE | 2024-01-20 02:44 | PC.ADMIT ---
admitted at 1820 on 01/19/24. t/w assumed care at 1940. patient was at [facility] and referred to [facility] after assessment by their crisis team. legal: CV. dx: depressive d/o. GERRY. reported SI/HI thoughts at time of crisis assessment. reports HX of hospitalization at [facility] in the past. reports after DC from the hospital ''I was on a waiting list for providers-but that never happened'' reports he is also a consumer there and utilizes the methadone clinic. per records from [facility] last dose administered was 01/18 and given 110 mg of methadone. endorses alcohol use and has been placed on a CIWA scale. reports ''mild AH'' and currently denies SI reporting ''feeling safe in the hospital'' endorses racing thoughts. poor sleep. feels as if he'd like to ''get away from [place], there is nothing here for me but trouble'' Hx of SI attempts, trauma and has a limited support system. ALCARAZ + for methadone, fentanyl and cocaine. has started to engage in treatment.
[2024-01-20] MEDS: OLANZapine 5 MG TABLET PO ×3 (05:01→21:08)
[2024-01-20] MEDS: Acetaminophen 325 MG TABLET 650 MG PO ×3 (05:02→23:10)
--- NOTE | 2024-01-20 06:11 | PC.NURSE ---
methadone-release signed for Lesley Romero. Last dose verified. needs MD order to continue.
--- NOTE | 2024-01-20 07:20 | PC.ADMIT ---
Addendum entered by Brenda Hernandez RN 01/20/24 07:22: L side face. reports ingrown hair. Original Note: continued-medical issues-L sided knee/leg pain. gait disturbance noted. reports HX of w/d seizures.
--- NOTE | 2024-01-20 07:44 | HE.PHANOTE ---
Addendum entered by Ely Deluna RPh 01/20/24 08:30: original methadone verification sheet done incorrectly, recieved second sheet from nursing. Last dose was 01/19/24 @0900 per [facility] documentation, [facility] records also sent over with last dose verified from medical record. Original Note: ALISSON GIBBONS RN sent methadone maintenance clinic verification form to pharmacy. Patient was confirmed to be last dosed with 110 mg on 01/15/24 with MIRAV[facility] [id number]
[2024-01-20 08:30] VITALS: BP 115/57; PULSE 72; RESP 16; TEMP 36.6; O2SAT 94
[2024-01-20] MEDS: LORazepam 1 MG TABLET PO ×4 (08:34→23:10)
[2024-01-20] MEDS: Gabapentin 300 MG CAPSULE PO ×3 (08:34→21:08)
[2024-01-20 09:07] LABS: Estimated Average Glucose 103 mg/dL; Hemoglobin A1C 113.4407 umol/L; Hemoglobin A1c % 5.2 % (<6.0); Total Hemoglobin (HGBA1C) 3392.1655 umol/L
[2024-01-20 09:32] LABS: Alanine Aminotransferase 71 U/L (0-40); Albumin Level 4.1 g/dL (3.5-5.0); Alkaline Phosphatase 95 U/L (39-117); Anion Gap 12 (12-20); Aspartate Amino Transferase 36 U/L (5-37); Bilirubin Total 0.2 mg/dL (0.0-1.0); Blood Urea Nitrogen 17 mg/dL (9-16); Calcium 9.7 mg/dL (8.4-10.2); Carbon Dioxide 27 mmol/L (22-29); Chloride 105 mmol/L (96-108); Cholesterol 165 mg/dL (<200); Creatinine Clr Calc Pharmacy 123.4; Estimated Glomerular Filt Rate > 60; Glucose Fasting 107 mg/dL (60-99); HDL Cholesterol 40 mg/dL (>40); LDL Cholesterol Calculated 87 mg/dL (<100); Sodium 140 mmol/L (135-145); Total Protein 7.4 g/dL (6.5-8.0); Triglycerides 191 mg/dL (<150)
[2024-01-20] MEDS: methADONE HCl 20 MG/2 ML ORAL.CONC 110 MG PO (09:41)
[2024-01-20] MEDS: Nicotine Polacrilex 2 MG GUM 4 MG BUCCAL ×3 (11:16→23:13)
[2024-01-20] MEDS: Nicotine 21 MG PATCH.TD24 TRANSDERMA (11:17)
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
[2024-01-20] MEDS: Lidocaine 4 % Patch ADH..PATCH 1 PATCH TRANSDERMA (16:27)
[2024-01-20] MEDS: hydrOXYzine HCL 25 MG TABLET PO (16:35)
[2024-01-20 20:00] VITALS: BP 127/83; PULSE 16; TEMP 36.9; O2SAT 94
[2024-01-20] MEDS: traZODone HCL 50 MG TABLET PO (21:08)
[2024-01-21 07:00] VITALS: BMI 31.6
[2024-01-21] MEDS: methADONE HCl 20 MG/2 ML ORAL.CONC 110 MG PO (07:53)
[2024-01-21] MEDS: LORazepam 1 MG TABLET PO ×3 (08:36→20:52)
[2024-01-21] MEDS: Gabapentin 300 MG CAPSULE PO ×3 (08:37→20:52)
[2024-01-21] MEDS: Lidocaine 4 % Patch ADH..PATCH 1 PATCH TRANSDERMA (08:37)
[2024-01-21 10:23] VITALS: BP 108/60; PULSE 83; TEMP 37.1; O2SAT 94
--- NOTE | 2024-01-21 13:37 | MHC.RECOVRN ---
AUDIT-C Brief Intervention Pt had positive screen for unhealthy alcohol use on admission. Attempted to meet with pt to discuss alcohol use and offer resources, pt declined.
[2024-01-21] MEDS: Nicotine Polacrilex 2 MG GUM 4 MG BUCCAL ×2 (14:36→20:52)
--- NOTE | 2024-01-21 18:42 | HO.PSYCHPN ---
Subjective Subjective Date of Service: 01/21/24 Reason For Visit: Depression Subjective Notes: Conditional Voluntary Healthcare Proxy: No Guardianship: No Medical Problems Affecting Mental Status: No Interim History: Continues with sedation. Reports L knee pain. Will get xray and possible ortho consult. Team question need for a walker. Describes sx 01/06, however difficult to discuss with pt d/t sedation. Spending time sleeping today. Medication Compliance: Yes Side effects from medications: Yes (Sedation) Attending Groups: No Review of Systems L Knee pain Medical Review of Systems: unchanged Review of Systems Review of Systems L knee pain Mental Status Exam Mental Status Exam Patient Appearance: Fatigued and Disheveled Patient Orientation: Person, Place and Situation Level of Consciousness: Sedated Patient Behavior: Sedated, Avoidant, Isolative and Poor Eye Contact Mood Description: Withdrawn, Depressed and Flat Affect Description: Flat Patient Cognition Impaired: No Ability to Follow Directions: Fair Speech Pattern: Impoverished and Spontaneous Speech Memory Description: Remote Impaired Hallucinations: Auditory Delusions: Present Thought Process: Rumination and Slowed Thinking Thought Content: positive for Perseveration, positive for Slowed Thinking, positive for Suicidal Ideation and positive for Homicidal Ideation Depressive Symptoms: Sleeping More Than Usual, Hopelessness, Unhappiness (overwhelmed with issues he states), Thoughts of /Suicide and Low Self Esteem Judgement: Fair Diagnostics Vital Signs (24Hr): Vital Signs - 24 hr 01/20/24 20:00 01/21/24 10:23 Temperature 98.4 F 98.7 F Pulse Rate 16 L 83 Blood Pressure 127/83 108/60 Pulse Oximetry 94 94 Oxygen Delivery Method Room Air Room Air BMI result Body Mass Index 31.6 Labs 01/20/24 08:49 Labs: Laboratory Results - last 48 hr 01/20/24 08:49 Sodium 140 Potassium 4.0 Chloride 105 Carbon Dioxide 27 Anion Gap 12 BUN 17 H Creatinine 0.82 Estim Creat Clear Calc 123.4 Estimated GFR > 60 Fasting Glucose 107 H Estimat Average Glucose 103 Hemoglobin A1c % 5.2 Calcium 9.7 Total Bilirubin 0.2 AST 36 ALT 71 H Alkaline Phosphatase 95 Total Protein 7.4 Albumin 4.1 Triglycerides 191 H Cholesterol 165 LDL Cholesterol, Calc 87 HDL Cholesterol 40 L TSH 1.90 Medications Medications Current Medications Acetaminophen (Acetaminophen 325 Mg Tablet) 650 mg PO Q6H PRN PRN Reason: Headache/Pain Mild Scale (1-3) Last Admin: 01/20/24 23:10 Dose: 650 mg Al Hydroxide/Mg Hydroxide (Magnesium Hydrox/Alum Hydrox 30 Ml Oral.Susp) 30 ml PO Q6H PRN PRN Reason: Heartburn/Nausea Gabapentin (Gabapentin 300 Mg Capsule) 300 mg PO TID [facility] Last Admin: 01/21/24 14:36 Dose: 300 mg Hydroxyzine HCl (Hydroxyzine Hcl 25 Mg Tablet) 25 mg PO Q6H PRN PRN Reason: Anxiety Last Admin: 01/20/24 16:35 Dose: 25 mg Lidocaine (Lidocaine 4 % Patch Adh..Patch) 1 patch TRANSDERMA DAILY [facility]; Protocol Last Admin: 01/21/24 08:37 Dose: 1 patch Lorazepam (Lorazepam 1 Mg Tablet) 1 mg PO Q2H PRN PRN Reason: CIWA 6-10 Last Admin: 01/20/24 23:10 Dose: 1 mg Lorazepam (Lorazepam 1 Mg Tablet) 2 mg PO Q2H PRN PRN Reason: CIWA 11 and above Lorazepam (Lorazepam 1 Mg Tablet) 1 mg PO TID [facility] Last Admin: 01/21/24 14:36 Dose: 1 mg Magnesium Hydroxide (Milk Of Magnesia 30 Ml Oral.Susp) 30 ml PO DAILY PRN PRN Reason: Constipation Methadone HCl (Methadone Hcl 20 Mg/2 Ml Oral.Conc) 110 mg PO DAILY@0800 [facility] Last Admin: 01/21/24 07:53 Dose: 110 mg Nicotine (Nicotine 21 Mg Patch.Td24) 21 mg TRANSDERMA DAILY PRN PRN Reason: smoking cessation Last Admin: 01/20/24 11:17 Dose: 21 mg Nicotine Polacrilex (Nicotine Polacrilex 2 Mg Gum) 4 mg BUCCAL Q2H PRN PRN Reason: Nicotine Cravings Last Admin: 01/21/24 14:36 Dose: 4 mg Olanzapine (Olanzapine 5 Mg Tablet) 5 mg PO TID PRN PRN Reason: agitation Last Admin: 01/20/24 11:16 Dose: 5 mg Olanzapine (Olanzapine 5 Mg Tablet) 5 mg PO BEDTIME [facility] Last Admin: 01/20/24 21:08 Dose: 5 mg Trazodone HCl (Trazodone Hcl 50 Mg Tablet) 50 mg PO BEDTIME MRX1 PRN PRN Reason: Insomnia Last Admin: 01/20/24 21:08 Dose: 50 mg Allergies Allergies Allergy/AdvReac Type Severity Reaction Status Date / Time No Known Allergies Allergy Verified 12/16/23 05:13 Assessment & Plan Assessment & Plan (1) Severe recurrent major depression with psychotic features: Status: Acute Code(s): F33.3 - Major depressive disorder, recurrent, severe with psychotic symptoms (2) Alcohol use disorder, severe, dependence: Status: Acute Code(s): F10.20 - Alcohol dependence, uncomplicated (3) Opioid use disorder, severe, on maintenance therapy: Status: Acute Code(s): F11.20 - Opioid dependence, uncomplicated (4) Cocaine use disorder: Status: Acute Code(s): F14.10 - Cocaine abuse, uncomplicated (5) Homeless: Status: Acute Code(s): Z59.00 - Homelessness unspecified Plan Recurrent Major Depression Recurrent with psychotic features, Alcohol, Opiate, Cocaine Use Disorder, Homeless Individual. Plan: Admit, CV, 15 minute checks Collateral contact Continue Gabapentin, Olanzapine ?Naltrexone trial Alcohol Detox protocol Continue Methadone ?CSS for discharge planning 01/20: Continue tx plan. Reason for continued inpatient stay Substantial Risk for: rapid decompensation and med/psych decompensation Time Spent With Patient Time: Total time managing care of this patient today ____ minutes.
[2024-01-21] MEDS: Acetaminophen 325 MG TABLET 650 MG PO (19:14)
[2024-01-21 20:00] VITALS: RESP 16
[2024-01-21] MEDS: OLANZapine 5 MG TABLET PO (20:52)
[2024-01-21] MEDS: traZODone HCL 50 MG TABLET PO (20:52)
[2024-01-22] MEDS: Acetaminophen 325 MG TABLET 650 MG PO ×3 (00:36→18:09)
[2024-01-22] MEDS: LORazepam 1 MG TABLET PO ×3 (00:37→16:29)
[2024-01-22] MEDS: traZODone HCL 50 MG TABLET PO ×2 (00:37→20:08)
[2024-01-22 04:00] VITALS: RESP 14
[2024-01-22] MEDS: methADONE HCl 20 MG/2 ML ORAL.CONC 110 MG PO (07:57)
[2024-01-22 08:17] VITALS: BP 150/84; PULSE 87; TEMP 36.1; O2SAT 95
[2024-01-22] MEDS: Gabapentin 300 MG CAPSULE PO ×3 (08:53→20:09)
[2024-01-22] MEDS: Lidocaine 4 % Patch ADH..PATCH 1 PATCH TRANSDERMA (08:54)
[2024-01-22] MEDS: hydrOXYzine HCL 25 MG TABLET PO ×2 (09:03→18:07)
--- NOTE | 2024-01-22 10:03 | HO.PSYCHPN ---
Subjective Subjective Date of Service: 01/22/24 Reason For Visit: Depression Subjective Notes: Conditional Voluntary Healthcare Proxy: No Guardianship: No Medical Problems Affecting Mental Status: No Interim History: Continues with sedation. Knee pain persists, Asks for a walker which is ordered along with ortho consult. X rays completed. Pt continues to be a poor historian dt sedation today. Medication Compliance: Yes Side effects from medications: Yes Attending Groups: No Review of Systems L knee pain Medical Review of Systems: unchanged Review of Systems Review of Systems Yes Unobtainable due to mental status Mental Status Exam Mental Status Exam Patient Appearance: Fatigued and Disheveled Patient Orientation: Person, Place and Situation Level of Consciousness: Sedated Patient Behavior: Sedated, Avoidant, Isolative and Poor Eye Contact Mood Description: Withdrawn, Depressed and Flat Affect Description: Flat Patient Cognition Impaired: No Ability to Follow Directions: Fair Speech Pattern: Impoverished and Spontaneous Speech Memory Description: Remote Impaired Hallucinations: Auditory Delusions: Present Thought Process: Rumination and Slowed Thinking Thought Content: positive for Perseveration, positive for Slowed Thinking, positive for Suicidal Ideation and positive for Homicidal Ideation Depressive Symptoms: Sleeping More Than Usual, Hopelessness, Unhappiness (overwhelmed with issues he states), Thoughts of /Suicide and Low Self Esteem Judgement: Fair Diagnostics Vital Signs (24Hr): Vital Signs - 24 hr 01/21/24 10:23 01/21/24 20:00 01/22/24 04:00 Temperature 98.7 F Pulse Rate 83 Respiratory Rate 16 14 Blood Pressure 108/60 Pulse Oximetry 94 Oxygen Delivery Method Room Air 01/22/24 08:17 Temperature 97 F Pulse Rate 87 Respiratory Rate Blood Pressure 150/84 H Pulse Oximetry 95 Oxygen Delivery Method Room Air BMI result Body Mass Index 31.6 Labs 01/20/24 08:49 Imaging Radiology Impressions: ITS Impressions Knee X-Ray 01/21/24 17:40 IMPRESSION: Moderate to severe lateral as well as mild medial and patellofemoral compartment osteoarthritis. Electronically signed by: Adam Maria MD 01/22/2024 09:44 AM EDT RP Medications Medications Current Medications Acetaminophen (Acetaminophen 325 Mg Tablet) 650 mg PO Q6H PRN PRN Reason: Headache/Pain Mild Scale (1-3) Last Admin: 01/22/24 09:03 Dose: 650 mg Al Hydroxide/Mg Hydroxide (Magnesium Hydrox/Alum Hydrox 30 Ml Oral.Susp) 30 ml PO Q6H PRN PRN Reason: Heartburn/Nausea Gabapentin (Gabapentin 300 Mg Capsule) 300 mg PO TID [facility] Last Admin: 01/22/24 08:53 Dose: 300 mg Hydroxyzine HCl (Hydroxyzine Hcl 25 Mg Tablet) 25 mg PO Q6H PRN PRN Reason: Anxiety Last Admin: 01/22/24 09:03 Dose: 25 mg Lidocaine (Lidocaine 4 % Patch Adh..Patch) 1 patch TRANSDERMA DAILY [facility]; Protocol Last Admin: 01/22/24 08:54 Dose: 1 patch Lorazepam (Lorazepam 1 Mg Tablet) 1 mg PO Q2H PRN PRN Reason: CIWA 6-10 Last Admin: 01/22/24 00:37 Dose: 1 mg Lorazepam (Lorazepam 1 Mg Tablet) 2 mg PO Q2H PRN PRN Reason: CIWA 11 and above Lorazepam (Lorazepam 1 Mg Tablet) 1 mg PO TID [facility] Last Admin: 01/22/24 08:53 Dose: 1 mg Magnesium Hydroxide (Milk Of Magnesia 30 Ml Oral.Susp) 30 ml PO DAILY PRN PRN Reason: Constipation Methadone HCl (Methadone Hcl 20 Mg/2 Ml Oral.Conc) 110 mg PO DAILY@0800 [facility] Last Admin: 01/22/24 07:57 Dose: 110 mg Nicotine (Nicotine 21 Mg Patch.Td24) 21 mg TRANSDERMA DAILY PRN PRN Reason: smoking cessation Last Admin: 01/20/24 11:17 Dose: 21 mg Nicotine Polacrilex (Nicotine Polacrilex 2 Mg Gum) 4 mg BUCCAL Q2H PRN PRN Reason: Nicotine Cravings Last Admin: 01/21/24 20:52 Dose: 4 mg Olanzapine (Olanzapine 5 Mg Tablet) 5 mg PO TID PRN PRN Reason: agitation Last Admin: 01/20/24 11:16 Dose: 5 mg Olanzapine (Olanzapine 5 Mg Tablet) 5 mg PO BEDTIME [facility] Last Admin: 01/21/24 20:52 Dose: 5 mg Trazodone HCl (Trazodone Hcl 50 Mg Tablet) 50 mg PO BEDTIME MRX1 PRN PRN Reason: Insomnia Last Admin: 01/22/24 00:37 Dose: 50 mg Allergies Allergies Allergy/AdvReac Type Severity Reaction Status Date / Time No Known Allergies Allergy Verified 12/16/23 05:13 Assessment & Plan Assessment & Plan (1) Severe recurrent major depression with psychotic features: Status: Acute Code(s): F33.3 - Major depressive disorder, recurrent, severe with psychotic symptoms (2) Alcohol use disorder, severe, dependence: Status: Acute Code(s): F10.20 - Alcohol dependence, uncomplicated (3) Opioid use disorder, severe, on maintenance therapy: Status: Acute Code(s): F11.20 - Opioid dependence, uncomplicated (4) Cocaine use disorder: Status: Acute Code(s): F14.10 - Cocaine abuse, uncomplicated (5) Homeless: Status: Acute Code(s): Z59.00 - Homelessness unspecified Plan Recurrent Major Depression Recurrent with psychotic features, Alcohol, Opiate, Cocaine Use Disorder, Homeless Individual. Plan: Admit, CV, 15 minute checks Collateral contact Continue Gabapentin, Olanzapine ?Naltrexone trial Alcohol Detox protocol Continue Methadone ?CSS for discharge planning 01/21- Decrease Lorazepam to 0.5 mg tid Ortho Eval L knee Walker to help support pt with knee pain. Reason for continued inpatient stay Substantial Risk for: rapid decompensation and med/psych decompensation Time Spent With Patient Time: Total time managing care of this patient today ____ minutes.
[2024-01-22] MEDS: OLANZapine 5 MG TABLET PO ×2 (13:07→20:08)
--- NOTE | 2024-01-22 19:56 | PC.NURSE ---
Ramu arrived to unit for pt at this time, placed on 5 minute checks for equipment per protocol
[2024-01-22 20:00] VITALS: BP 119/76; PULSE 95; RESP 16; TEMP 36.4; O2SAT 96
[2024-01-22] MEDS: LORazepam 0.5 MG TABLET PO (20:08)
[2024-01-22] MEDS: Nicotine Polacrilex 2 MG GUM 4 MG BUCCAL (20:11)
--- NOTE | 2024-01-22 20:39 | PM.EVENT ---
Event Note Date of Service: 01/22/24 Event Note: No acute orthopedic intervention needed for knee O/A Antiinflammatories as needed Patient to be seen out patient X-rays reviewed - No acute fx or dislocation moderate O/A Time Spent With Patient Time: Total time managing care of this patient today ____ minutes.
[2024-01-23 00:05] VITALS: BP 122/64; PULSE 84; RESP 14
[2024-01-23] MEDS: OLANZapine 5 MG TABLET PO ×3 (00:05→20:38)
[2024-01-23] MEDS: Nicotine Polacrilex 2 MG GUM 4 MG BUCCAL ×2 (01:57→09:01)
[2024-01-23] MEDS: Acetaminophen 325 MG TABLET 650 MG PO ×4 (01:57→20:56)
[2024-01-23 04:05] VITALS: BP 124/70; PULSE 76; RESP 14
[2024-01-23] MEDS: methADONE HCl 20 MG/2 ML ORAL.CONC 110 MG PO (07:57)
[2024-01-23 08:00] VITALS: BP 132/82; PULSE 92; RESP 16; TEMP 36.4; O2SAT 94
[2024-01-23] MEDS: Thiamine HCL 100 MG TABLET PO (09:00)
[2024-01-23] MEDS: LORazepam 0.5 MG TABLET PO ×3 (09:00→20:38)
[2024-01-23] MEDS: Gabapentin 300 MG CAPSULE PO ×3 (09:01→20:37)
[2024-01-23] MEDS: Folic Acid 1 MG TABLET PO (09:01)
[2024-01-23] MEDS: Nicotine 21 MG PATCH.TD24 TRANSDERMA (09:02)
--- NOTE | 2024-01-23 11:00 | HO.PSYCHPN ---
Subjective Subjective Date of Service: 01/23/24 Reason For Visit: Depression Interim History: Complains of knee and ankle pain and back pain. He remains discouraged and depressed because of his chronic pain condition. He has an ortho consult pending. Has a walker. Denies active SI. Says he has auditory hallucinations intermittently and talks to himself. Doesn't appear to be responding to internal stimuli. Review of Systems Review of Systems L knee pain Yes Unobtainable due to mental status Constitutional: Denies body ache(s), Denies chills, Denies fatigue, Denies fever(s) and Denies headache(s) Eyes: Denies change in vision Denies dizziness, Denies headache(s), Denies nasal congestion, Denies nasal discharge and Denies sore throat Cardiovascular: Denies chest pain, Denies rapid heart rate, Denies lightheadedness and Denies dyspnea Respiratory: Denies cough and Denies dyspnea Gastrointestinal: Denies constipation, Denies diarrhea, Denies nausea and Denies vomiting Genitourinary: Denies dysuria Musculoskeletal: Denies myalgias and Reports arthralgias Skin/Breast: Denies rash Denies dizziness and Denies headache(s) Psychiatric: Reports as per HPI Endocrine: Denies fatigue Mental Status Exam Mental Status Exam Patient Appearance: Fatigued and Disheveled Patient Orientation: Person, Place and Situation Level of Consciousness: Sedated Patient Behavior: Sedated, Avoidant, Isolative and Poor Eye Contact Mood Description: Withdrawn, Depressed and Flat Affect Description: Flat Patient Cognition Impaired: No Ability to Follow Directions: Fair Speech Pattern: Impoverished and Spontaneous Speech Memory Description: Remote Impaired Diagnostics Vital Signs (24Hr): Vital Signs - 24 hr 01/22/24 20:00 01/23/24 00:05 01/23/24 04:05 Temperature 97.6 F Pulse Rate 95 84 76 Respiratory Rate 16 14 14 Blood Pressure 119/76 122/64 124/70 Pulse Oximetry 96 Oxygen Delivery Method Room Air 01/23/24 08:00 Temperature 97.5 F Pulse Rate 92 Respiratory Rate 16 Blood Pressure 132/82 Pulse Oximetry 94 Oxygen Delivery Method Room Air BMI result Body Mass Index 31.6 Labs 01/20/24 08:49 Imaging Radiology Impressions: ITS Impressions Knee X-Ray 01/21/24 17:40 IMPRESSION: Moderate to severe lateral as well as mild medial and patellofemoral compartment osteoarthritis. Electronically signed by: Adam Maria MD 01/22/2024 09:44 AM EDT RP Medications Medications Current Medications Acetaminophen (Acetaminophen 325 Mg Tablet) 650 mg PO Q6H PRN PRN Reason: Headache/Pain Mild Scale (1-3) Last Admin: 01/23/24 09:01 Dose: 650 mg Al Hydroxide/Mg Hydroxide (Magnesium Hydrox/Alum Hydrox 30 Ml Oral.Susp) 30 ml PO Q6H PRN PRN Reason: Heartburn/Nausea Folic Acid (Folic Acid 1 Mg Tablet) 1 mg PO DAILY [facility] Last Admin: 01/23/24 09:01 Dose: 1 mg Gabapentin (Gabapentin 300 Mg Capsule) 300 mg PO TID [facility] Last Admin: 01/23/24 09:01 Dose: 300 mg Hydroxyzine HCl (Hydroxyzine Hcl 25 Mg Tablet) 25 mg PO Q6H PRN PRN Reason: Anxiety Last Admin: 01/22/24 18:07 Dose: 25 mg Lidocaine (Lidocaine 4 % Patch Adh..Patch) 1 patch TRANSDERMA DAILY [facility]; Protocol Last Admin: 01/22/24 08:54 Dose: 1 patch Lorazepam (Lorazepam 1 Mg Tablet) 1 mg PO Q2H PRN PRN Reason: CIWA 6-10 Last Admin: 01/22/24 00:37 Dose: 1 mg Lorazepam (Lorazepam 1 Mg Tablet) 2 mg PO Q2H PRN PRN Reason: CIWA 11 and above Lorazepam (Lorazepam 0.5 Mg Tablet) 0.5 mg PO TID [facility] Last Admin: 01/23/24 09:00 Dose: 0.5 mg Magnesium Hydroxide (Milk Of Magnesia 30 Ml Oral.Susp) 30 ml PO DAILY PRN PRN Reason: Constipation Methadone HCl (Methadone Hcl 20 Mg/2 Ml Oral.Conc) 110 mg PO DAILY@0800 [facility] Last Admin: 01/23/24 07:57 Dose: 110 mg Multivitamins/Vitamin C (Multivitamin Tablet) 1 tab PO DAILY [facility] Nicotine (Nicotine 21 Mg Patch.Td24) 21 mg TRANSDERMA DAILY PRN PRN Reason: smoking cessation Last Admin: 01/23/24 09:02 Dose: 21 mg Nicotine Polacrilex (Nicotine Polacrilex 2 Mg Gum) 4 mg BUCCAL Q2H PRN PRN Reason: Nicotine Cravings Last Admin: 10/26/24 09:01 Dose: 4 mg Olanzapine (Olanzapine 5 Mg Tablet) 5 mg PO TID PRN PRN Reason: agitation Last Admin: 01/23/24 00:05 Dose: 5 mg Olanzapine (Olanzapine 5 Mg Tablet) 5 mg PO BEDTIME [facility] Last Admin: 01/22/24 20:08 Dose: 5 mg Thiamine HCl (Thiamine Hcl 100 Mg Tablet) 100 mg PO DAILY [facility] Last Admin: 01/23/24 09:00 Dose: 100 mg Trazodone HCl (Trazodone Hcl 50 Mg Tablet) 50 mg PO BEDTIME MRX1 PRN PRN Reason: Insomnia Last Admin: 01/22/24 20:08 Dose: 50 mg Allergies Allergies Allergy/AdvReac Type Severity Reaction Status Date / Time No Known Allergies Allergy Verified 12/16/23 05:13 Assessment & Plan Assessment & Plan (1) Severe recurrent major depression with psychotic features: Status: Acute Code(s): F33.3 - Major depressive disorder, recurrent, severe with psychotic symptoms (2) Alcohol use disorder, severe, dependence: Status: Acute Code(s): F10.20 - Alcohol dependence, uncomplicated (3) Opioid use disorder, severe, on maintenance therapy: Status: Acute Code(s): F11.20 - Opioid dependence, uncomplicated (4) Cocaine use disorder: Status: Acute Code(s): F14.10 - Cocaine abuse, uncomplicated (5) Homeless: Status: Acute Code(s): Z59.00 - Homelessness unspecified Plan Recurrent Major Depression Recurrent with psychotic features, Alcohol, Opiate, Cocaine Use Disorder, Homeless Individual. Plan: Admit, CV, 15 minute checks Collateral contact Continue Gabapentin, Olanzapine ?Naltrexone trial Alcohol Detox protocol Continue Methadone ?CSS for discharge planning 01/21- Decrease Lorazepam to 0.5 mg tid Ortho Eval L knee Walker to help support pt with knee pain. 01/22: Continue current management and treatment plan. Reason for continued inpatient stay Substantial Risk for: harm to self, inability to function, rapid decompensation and med/psych decompensation Time Spent With Patient Time: Total time managing care of this patient today ____ minutes.
[2024-01-23] MEDS: Lidocaine 4 % Patch ADH..PATCH 1 PATCH TRANSDERMA (12:50)
[2024-01-23] MEDS: LORazepam 1 MG TABLET PO (14:26)
[2024-01-23] MEDS: hydrOXYzine HCL 25 MG TABLET PO (18:18)
[2024-01-23 20:00] VITALS: BP 148/83; PULSE 94; TEMP 36.6; O2SAT 96
[2024-01-23] MEDS: traZODone HCL 50 MG TABLET PO (20:38)
[2024-01-24] MEDS: traZODone HCL 50 MG TABLET PO ×2 (03:28→21:04)
[2024-01-24] MEDS: OLANZapine 5 MG TABLET PO ×2 (03:29→21:04)
[2024-01-24] MEDS: Acetaminophen 325 MG TABLET 650 MG PO ×2 (03:33→14:17)
[2024-01-24] MEDS: hydrOXYzine HCL 25 MG TABLET PO ×2 (05:52→21:03)
[2024-01-24] MEDS: methADONE HCl 20 MG/2 ML ORAL.CONC 110 MG PO (07:45)
[2024-01-24 08:00] VITALS: BP 131/83; PULSE 98; RESP 16; TEMP 36.5; O2SAT 94
[2024-01-24] MEDS: Lidocaine 4 % Patch ADH..PATCH 1 PATCH TRANSDERMA (09:03)
[2024-01-24] MEDS: Gabapentin 300 MG CAPSULE PO ×3 (09:03→21:04)
[2024-01-24] MEDS: LORazepam 0.5 MG TABLET PO ×4 (09:03→21:04)
[2024-01-24] MEDS: Folic Acid 1 MG TABLET PO (09:03)
[2024-01-24] MEDS: Multivitamin TABLET 1 TAB PO (09:03)
[2024-01-24] MEDS: Thiamine HCL 100 MG TABLET PO (09:03)
--- NOTE | 2024-01-24 11:29 | HO.PSYCHPN ---
Subjective Subjective Date of Service: 01/24/24 Reason For Visit: Depression Interim History: Remains focused on his physical pain in knee, ankle and back. He remains discouraged and depressed because of his chronic pain condition.He has an ortho consult pending. Asks about increase in dose of methadone. Deferred. He appears tired and somewhat sedated. Has a walker. Denies active SI. Says he has auditory hallucinations intermittently and talks to himself. Doesn't appear to be responding to internal stimuli. Says he has a history of trauma. Review of Systems Review of Systems L knee pain Yes Unobtainable due to mental status Constitutional: Denies body ache(s), Denies chills, Denies fatigue, Denies fever(s) and Denies headache(s) Eyes: Denies change in vision Denies dizziness, Denies headache(s), Denies nasal congestion, Denies nasal discharge and Denies sore throat Cardiovascular: Denies chest pain, Denies rapid heart rate, Denies lightheadedness and Denies dyspnea Respiratory: Denies cough and Denies dyspnea Gastrointestinal: Denies constipation, Denies diarrhea, Denies nausea and Denies vomiting Genitourinary: Denies dysuria Musculoskeletal: Denies myalgias and Reports arthralgias Skin/Breast: Denies rash Denies dizziness and Denies headache(s) Psychiatric: Reports as per HPI Endocrine: Denies fatigue Mental Status Exam Mental Status Exam Patient Appearance: Fatigued and Disheveled Patient Orientation: Person, Place and Situation Level of Consciousness: Sedated Patient Behavior: Sedated, Avoidant, Isolative and Poor Eye Contact Mood Description: Withdrawn, Depressed and Flat Affect Description: Flat Patient Cognition Impaired: No Ability to Follow Directions: Fair Speech Pattern: Impoverished and Spontaneous Speech Memory Description: Remote Impaired Diagnostics Vital Signs (24Hr): Vital Signs - 24 hr 01/23/24 20:00 01/24/24 08:00 Temperature 97.8 F 97.7 F Pulse Rate 94 98 Respiratory Rate 16 Blood Pressure 148/83 H 131/83 Pulse Oximetry 96 94 Oxygen Delivery Method Room Air BMI result Body Mass Index 31.6 Labs 01/20/24 08:49 Imaging Radiology Impressions: ITS Impressions Knee X-Ray 01/21/24 17:40 IMPRESSION: Moderate to severe lateral as well as mild medial and patellofemoral compartment osteoarthritis. Electronically signed by: Adam Maria MD 01/22/2024 09:44 AM EDT RP Medications Medications Current Medications Acetaminophen (Acetaminophen 325 Mg Tablet) 650 mg PO Q6H PRN PRN Reason: Headache/Pain Mild Scale (1-3) Last Admin: 01/24/24 03:33 Dose: 650 mg Al Hydroxide/Mg Hydroxide (Magnesium Hydrox/Alum Hydrox 30 Ml Oral.Susp) 30 ml PO Q6H PRN PRN Reason: Heartburn/Nausea Folic Acid (Folic Acid 1 Mg Tablet) 1 mg PO DAILY [facility] Last Admin: 01/24/24 09:03 Dose: 1 mg Gabapentin (Gabapentin 300 Mg Capsule) 300 mg PO TID [facility] Last Admin: 01/24/24 09:03 Dose: 300 mg Hydroxyzine HCl (Hydroxyzine Hcl 25 Mg Tablet) 25 mg PO Q6H PRN PRN Reason: Anxiety Last Admin: 01/24/24 05:52 Dose: 25 mg Lidocaine (Lidocaine 4 % Patch Adh..Patch) 1 patch TRANSDERMA DAILY [facility]; Protocol Last Admin: 01/24/24 09:03 Dose: 1 patch Lorazepam (Lorazepam 0.5 Mg Tablet) 0.5 mg PO TID [facility] Last Admin: 01/24/24 09:03 Dose: 0.5 mg Magnesium Hydroxide (Milk Of Magnesia 30 Ml Oral.Susp) 30 ml PO DAILY PRN PRN Reason: Constipation Methadone HCl (Methadone Hcl 20 Mg/2 Ml Oral.Conc) 110 mg PO DAILY@0800 [facility] Last Admin: 01/24/24 07:45 Dose: 110 mg Multivitamins/Vitamin C (Multivitamin Tablet) 1 tab PO DAILY [facility] Last Admin: 01/24/24 09:03 Dose: 1 tab Nicotine (Nicotine 21 Mg Patch.Td24) 21 mg TRANSDERMA DAILY PRN PRN Reason: smoking cessation Last Admin: 01/23/24 09:02 Dose: 21 mg Nicotine Polacrilex (Nicotine Polacrilex 2 Mg Gum) 4 mg BUCCAL Q2H PRN PRN Reason: Nicotine Cravings Last Admin: 01/23/24 09:01 Dose: 4 mg Olanzapine (Olanzapine 5 Mg Tablet) 5 mg PO TID PRN PRN Reason: agitation Last Admin: 01/24/24 03:29 Dose: 5 mg Olanzapine (Olanzapine 5 Mg Tablet) 5 mg PO BEDTIME [facility] Last Admin: 01/23/24 20:38 Dose: 5 mg Thiamine HCl (Thiamine Hcl 100 Mg Tablet) 100 mg PO DAILY [facility] Last Admin: 01/24/24 09:03 Dose: 100 mg Trazodone HCl (Trazodone Hcl 50 Mg Tablet) 50 mg PO BEDTIME MRX1 PRN PRN Reason: Insomnia Last Admin: 01/24/24 03:28 Dose: 50 mg Allergies Allergies Allergy/AdvReac Type Severity Reaction Status Date / Time No Known Allergies Allergy Verified 12/16/23 05:13 Assessment & Plan Assessment & Plan (1) Severe recurrent major depression with psychotic features: Status: Acute Code(s): F33.3 - Major depressive disorder, recurrent, severe with psychotic symptoms (2) Alcohol use disorder, severe, dependence: Status: Acute Code(s): F10.20 - Alcohol dependence, uncomplicated (3) Opioid use disorder, severe, on maintenance therapy: Status: Acute Code(s): F11.20 - Opioid dependence, uncomplicated (4) Cocaine use disorder: Status: Acute Code(s): F14.10 - Cocaine abuse, uncomplicated (5) Homeless: Status: Acute Code(s): Z59.00 - Homelessness unspecified Plan Recurrent Major Depression Recurrent with psychotic features, Alcohol, Opiate, Cocaine Use Disorder, Homeless Individual. Plan: Admit, CV, 15 minute checks Collateral contact Continue Gabapentin, Olanzapine ?Naltrexone trial Alcohol Detox protocol Continue Methadone ?CSS for discharge planning 01/21- Decrease Lorazepam to 0.5 mg tid Ortho Eval L knee Walker to help support pt with knee pain. 01/22: Continue current management and treatment plan. 01/23: Continue current management and treatment plan. Ativan PRN instead of scheduled. Reason for continued inpatient stay Substantial Risk for: inability to function, rapid decompensation and med/psych decompensation Time Spent With Patient Time: Total time managing care of this patient today ____ minutes.
[2024-01-24 20:00] VITALS: BP 135/67; PULSE 102; RESP 16; TEMP 36.7; O2SAT 98
[2024-01-25] MEDS: traZODone HCL 50 MG TABLET PO ×3 (00:11→22:05)
[2024-01-25] MEDS: OLANZapine 5 MG TABLET PO ×3 (00:11→22:05)
[2024-01-25] MEDS: Acetaminophen 325 MG TABLET 650 MG PO ×2 (00:14→17:18)
[2024-01-25] MEDS: methADONE HCl 20 MG/2 ML ORAL.CONC 110 MG PO (07:44)
[2024-01-25 08:00] VITALS: BP 136/76; PULSE 99; RESP 16; TEMP 37.1; O2SAT 94
[2024-01-25] MEDS: Multivitamin TABLET 1 TAB PO (08:45)
[2024-01-25] MEDS: Thiamine HCL 100 MG TABLET PO (08:45)
[2024-01-25] MEDS: Folic Acid 1 MG TABLET PO (08:46)
[2024-01-25] MEDS: Gabapentin 300 MG CAPSULE PO ×3 (08:46→19:59)
[2024-01-25] MEDS: hydrOXYzine HCL 25 MG TABLET PO ×2 (09:02→17:18)
[2024-01-25] MEDS: Nicotine Polacrilex 2 MG GUM 4 MG BUCCAL ×2 (09:02→16:10)
[2024-01-25] MEDS: Nicotine 21 MG PATCH.TD24 TRANSDERMA (09:03)
[2024-01-25] MEDS: Lidocaine 4 % Patch ADH..PATCH 1 PATCH TRANSDERMA (09:04)
--- NOTE | 2024-01-25 09:56 | HO.PSYCHPN ---
Subjective Subjective Date of Service: 01/25/24 Reason For Visit: Depression Subjective Notes: Conditional Voluntary Healthcare Proxy: No Guardianship: No Medical Problems Affecting Mental Status: No Interim History: Met with pt, review of history, hospitalization up to this point. Severe knee OA, ortho consult ordered with no urgent recommendations. Pt finds walker to be helpful. Discussed Methadone dosing hx of 140 mg. Discussed voices/visions and willing to increase Olanzapine to 10 mg HS. Medication Compliance: Yes Side effects from medications: No Attending Groups: Intermittent Review of Systems Acute medical concerns: No Medical Review of Systems: unchanged Review of Systems Review of Systems OA pain-knee Mental Status Exam Mental Status Exam Patient Appearance: Appropriate Patient Orientation: Person, Place, Time and Situation Level of Consciousness: Alert Patient Behavior: Appropriate, Talkative, Cooperative and Good Eye Contact Mood Description: Flat Affect Description: Flat Patient Cognition Impaired: No Ability to Follow Directions: Fair Speech Pattern: Spontaneous Speech Memory Description: Episodic Impaired Hallucinations: Auditory and Visual Delusions: Paranoid Ideation and Present Perceptual Disturbances: Depersonalization, Derealization and Hallucinations Thought Process: Rumination Thought Content: positive for Perseveration and positive for Thought Blocking Depressive Symptoms: Increased Anxiety, Diff. Making Decisions, Increased Irritability, Feelings of Worthlessness, Thoughts of /Suicide, Loss of Energy and Difficulty Concentrating Abnormal Motor Activity Signs and Symptoms: Restlessness Judgement: Fair Diagnostics Vital Signs (24Hr): Vital Signs - 24 hr 01/24/24 20:00 Temperature 98.0 F Pulse Rate 102 H Respiratory Rate 16 Blood Pressure 135/67 Pulse Oximetry 98 Oxygen Delivery Method Room Air BMI result Body Mass Index 31.6 Labs 01/20/24 08:49 Imaging Radiology Impressions: ITS Impressions Knee X-Ray 01/21/24 17:40 IMPRESSION: Moderate to severe lateral as well as mild medial and patellofemoral compartment osteoarthritis. Electronically signed by: Adam Maria MD 01/22/2024 09:44 AM EDT Medications Medications Current Medications Acetaminophen (Acetaminophen 325 Mg Tablet) 650 mg PO Q6H PRN PRN Reason: Headache/Pain Mild Scale (1-3) Last Admin: 01/25/24 00:14 Dose: 650 mg Al Hydroxide/Mg Hydroxide (Magnesium Hydrox/Alum Hydrox 30 Ml Oral.Susp) 30 ml PO Q6H PRN PRN Reason: Heartburn/Nausea Folic Acid (Folic Acid 1 Mg Tablet) 1 mg PO DAILY [facility] Last Admin: 01/25/24 08:46 Dose: 1 mg Gabapentin (Gabapentin 300 Mg Capsule) 300 mg PO TID [facility] Last Admin: 01/25/24 08:46 Dose: 300 mg Hydroxyzine HCl (Hydroxyzine Hcl 25 Mg Tablet) 25 mg PO Q6H PRN PRN Reason: Anxiety Last Admin: 01/25/24 09:02 Dose: 25 mg Lidocaine (Lidocaine 4 % Patch Adh..Patch) 1 patch TRANSDERMA DAILY [facility]; Protocol Last Admin: 01/25/24 09:04 Dose: 1 patch Lorazepam (Lorazepam 0.5 Mg Tablet) 0.5 mg PO TID PRN PRN Reason: anxiety not responding to Vistaril Last Admin: 01/24/24 21:04 Dose: 0.5 mg Magnesium Hydroxide (Milk Of Magnesia 30 Ml Oral.Susp) 30 ml PO DAILY PRN PRN Reason: Constipation Methadone HCl (Methadone Hcl 20 Mg/2 Ml Oral.Conc) 110 mg PO DAILY@0800 [facility] Last Admin: 01/25/24 07:44 Dose: 110 mg Multivitamins/Vitamin C (Multivitamin Tablet) 1 tab PO DAILY [facility] Last Admin: 01/25/24 08:45 Dose: 1 tab Nicotine (Nicotine 21 Mg Patch.Td24) 21 mg TRANSDERMA DAILY PRN PRN Reason: smoking cessation Last Admin: 01/25/24 09:03 Dose: 21 mg Nicotine Polacrilex (Nicotine Polacrilex 2 Mg Gum) 4 mg BUCCAL Q2H PRN PRN Reason: Nicotine Cravings Last Admin: 01/25/24 09:02 Dose: 4 mg Olanzapine (Olanzapine 5 Mg Tablet) 5 mg PO TID PRN PRN Reason: agitation Last Admin: 01/25/24 00:11 Dose: 5 mg Olanzapine (Olanzapine 5 Mg Tablet) 5 mg PO BEDTIME [facility] Last Admin: 01/24/24 21:04 Dose: 5 mg Thiamine HCl (Thiamine Hcl 100 Mg Tablet) 100 mg PO DAILY [facility] Last Admin: 01/25/24 08:45 Dose: 100 mg Trazodone HCl (Trazodone Hcl 50 Mg Tablet) 50 mg PO BEDTIME MRX1 PRN PRN Reason: Insomnia Last Admin: 01/25/24 00:11 Dose: 50 mg Allergies Allergies Allergy/AdvReac Type Severity Reaction Status Date / Time No Known Allergies Allergy Verified 12/16/23 05:13 Assessment & Plan Assessment & Plan (1) Severe recurrent major depression with psychotic features: Status: Acute Code(s): F33.3 - Major depressive disorder, recurrent, severe with psychotic symptoms (2) Alcohol use disorder, severe, dependence: Status: Acute Code(s): F10.20 - Alcohol dependence, uncomplicated (3) Opioid use disorder, severe, on maintenance therapy: Status: Acute Code(s): F11.20 - Opioid dependence, uncomplicated (4) Cocaine use disorder: Status: Acute Code(s): F14.10 - Cocaine abuse, uncomplicated (5) Homeless: Status: Acute Code(s): Z59.00 - Homelessness unspecified Plan Recurrent Major Depression Recurrent with psychotic features, Alcohol, Opiate, Cocaine Use Disorder, Homeless Individual. Plan: Admit, CV, 15 minute checks Collateral contact Continue Gabapentin, Olanzapine ?Naltrexone trial Alcohol Detox protocol Continue Methadone ?CSS for discharge planning 01/21- Decrease Lorazepam to 0.5 mg tid Ortho Eval L knee Walker to help support pt with knee pain. 01/22: Continue current management and treatment plan. 01/23: Continue current management and treatment plan. Ativan PRN instead of scheduled. 01/24: Continues with SI, perceptual alterations. Today discussed a very long hx of incarceration, trauma, institutionalization which he struggles with letting go. -Increase Methadone to 115 mg daily -Increase Olanzapine to 10 mg daily Patient educated on: medication risk/benefits and therapeutic strategies Informed Consent: understands Reason for continued inpatient stay Substantial Risk for: rapid decompensation Time Spent With Patient Time: Total time managing care of this patient today ____ minutes.
--- NOTE | 2024-01-25 12:32 | PC.NURSE ---
Pt reported he wants his methadone increased. GERONIMO Negro made aware via [employer].
[2024-01-25] MEDS: LORazepam 0.5 MG TABLET PO ×2 (14:49→19:59)
[2024-01-25] MEDS: OLANZapine 10 MG TABLET PO (19:59)
[2024-01-25 20:00] VITALS: BP 131/71; PULSE 94; RESP 16; TEMP 36.4; O2SAT 93
[2024-01-26] MEDS: hydrOXYzine HCL 25 MG TABLET PO ×4 (00:21→18:35)
[2024-01-26] MEDS: Acetaminophen 325 MG TABLET 650 MG PO ×3 (00:21→18:35)
[2024-01-26] MEDS: LORazepam 0.5 MG TABLET PO ×3 (02:06→14:01)
[2024-01-26] MEDS: methADONE HCl 20 MG/2 ML ORAL.CONC 115 MG PO (07:41)
[2024-01-26 07:50] VITALS: BP 143/86; PULSE 102; TEMP 36.8; O2SAT 93
[2024-01-26] MEDS: Lidocaine 4 % Patch ADH..PATCH 1 PATCH TRANSDERMA (08:36)
[2024-01-26] MEDS: Nicotine 21 MG PATCH.TD24 TRANSDERMA (08:38)
[2024-01-26] MEDS: Thiamine HCL 100 MG TABLET PO (08:38)
[2024-01-26] MEDS: Gabapentin 300 MG CAPSULE PO ×3 (08:38→20:26)
[2024-01-26] MEDS: Folic Acid 1 MG TABLET PO (08:38)
[2024-01-26] MEDS: Multivitamin TABLET 1 TAB PO (08:39)
[2024-01-26] MEDS: OLANZapine 5 MG TABLET PO ×2 (08:39→16:06)
[2024-01-26] MEDS: Nicotine Polacrilex 2 MG GUM 4 MG BUCCAL (08:39)
[2024-01-26] MEDS: Divalproex Sodium 500 MG TABLET.DR PO ×2 (11:25→20:26)
--- NOTE | 2024-01-26 16:08 | P.PNPSI_ITS ---
Subjective Subjective Date of Service: 01/26/24 Reason For Visit: Depression Subjective Notes: Conditional Voluntary Healthcare Proxy: No Guardianship: No Medical Problems Affecting Mental Status: No Interim History: Tolerating medication increases. Has discussed seizure d/o hx with team. Discussed Valproate and initiation which he agrees with along with EEG Reports feeling jumpy at noc, up q2h with off/on sleep, pain Asks about a walker upon discharge, told pt we would try to order one. Ibuprofen prn ordered for OA pain. Discussed depressive sx, voices and effects of chronic institutionalization on these sx and their manifestation. Medication Compliance: Yes Side effects from medications: No Attending Groups: Intermittent Review of Systems Acute medical concerns: No Review of Systems Review of Systems OA pain Mental Status Exam Mental Status Exam Patient Appearance: Appropriate Patient Orientation: Person, Place, Time and Situation Level of Consciousness: Alert Patient Behavior: Appropriate, Talkative, Cooperative and Good Eye Contact Mood Description: Flat Affect Description: Flat Patient Cognition Impaired: No Ability to Follow Directions: Fair Speech Pattern: Spontaneous Speech Memory Description: Episodic Impaired Hallucinations: Auditory and Visual Delusions: Paranoid Ideation and Present Perceptual Disturbances: Depersonalization, Derealization and Hallucinations Thought Process: Rumination Thought Content: positive for Perseveration and positive for Thought Blocking Depressive Symptoms: Increased Anxiety, Diff. Making Decisions, Increased Irritability, Feelings of Worthlessness, Thoughts of /Suicide, Loss of Energy and Difficulty Concentrating Abnormal Motor Activity Signs and Symptoms: Restlessness Judgement: Fair Diagnostics Vital Signs (24Hr): Vital Signs - 24 hr 01/25/24 20:00 01/26/24 07:50 Temperature 97.6 F 98.2 F Pulse Rate 94 102 H Respiratory Rate 16 Blood Pressure 131/71 143/86 H Pulse Oximetry 93 93 Oxygen Delivery Method Room Air Room Air BMI result Body Mass Index 31.6 Labs 01/20/24 08:49 Imaging Radiology Impressions: ITS Impressions Knee X-Ray 01/21/24 17:40 IMPRESSION: Moderate to severe lateral as well as mild medial and patellofemoral compartment osteoarthritis. Electronically signed by: Adam Maria MD 01/22/2024 09:44 AM EDT RP Medications Medications Current Medications Acetaminophen (Acetaminophen 325 Mg Tablet) 650 mg PO Q6H PRN PRN Reason: Headache/Pain Mild Scale (1-3) Last Admin: 01/26/24 08:38 Dose: 650 mg Al Hydroxide/Mg Hydroxide (Magnesium Hydrox/Alum Hydrox 30 Ml Oral.Susp) 30 ml PO Q6H PRN PRN Reason: Heartburn/Nausea Divalproex Sodium (Divalproex Sodium 500 Mg Tablet.Dr) 500 mg PO BID [facility] Folic Acid (Folic Acid 1 Mg Tablet) 1 mg PO DAILY [facility] Last Admin: 01/26/24 08:38 Dose: 1 mg Gabapentin (Gabapentin 300 Mg Capsule) 300 mg PO TID [facility] Last Admin: 01/26/24 14:01 Dose: 300 mg Hydroxyzine HCl (Hydroxyzine Hcl 25 Mg Tablet) 25 mg PO Q6H PRN PRN Reason: Anxiety Last Admin: 01/26/24 13:10 Dose: 25 mg Lidocaine (Lidocaine 4 % Patch Adh..Patch) 1 patch TRANSDERMA DAILY [facility]; Protocol Last Admin: 01/26/24 08:36 Dose: 1 patch Lorazepam (Lorazepam 0.5 Mg Tablet) 0.5 mg PO TID PRN PRN Reason: anxiety not responding to Vistaril Last Admin: 01/26/24 14:01 Dose: 0.5 mg Magnesium Hydroxide (Milk Of Magnesia 30 Ml Oral.Susp) 30 ml PO DAILY PRN PRN Reason: Constipation Methadone HCl (Methadone Hcl 20 Mg/2 Ml Oral.Conc) 115 mg PO DAILY@0800 [facility] Last Admin: 01/26/24 07:41 Dose: 115 mg Multivitamins/Vitamin C (Multivitamin Tablet) 1 tab PO DAILY [facility] Last Admin: 01/26/24 08:39 Dose: 1 tab Nicotine (Nicotine 21 Mg Patch.Td24) 21 mg TRANSDERMA DAILY PRN PRN Reason: smoking cessation Last Admin: 01/26/24 08:38 Dose: 21 mg Nicotine Polacrilex (Nicotine Polacrilex 2 Mg Gum) 4 mg BUCCAL Q2H PRN PRN Reason: Nicotine Cravings Last Admin: 01/26/24 08:39 Dose: 4 mg Olanzapine (Olanzapine 5 Mg Tablet) 5 mg PO TID PRN PRN Reason: agitation Last Admin: 01/26/24 16:06 Dose: 5 mg Olanzapine (Olanzapine 10 Mg Tablet) 10 mg PO BEDTIME [facility] Last Admin: 01/25/24 19:59 Dose: 10 mg Thiamine HCl (Thiamine Hcl 100 Mg Tablet) 100 mg PO DAILY [facility] Last Admin: 01/26/24 08:38 Dose: 100 mg Trazodone HCl (Trazodone Hcl 50 Mg Tablet) 50 mg PO BEDTIME MRX1 PRN PRN Reason: Insomnia Last Admin: 01/25/24 22:05 Dose: 50 mg Allergies Allergies Allergy/AdvReac Type Severity Reaction Status Date / Time No Known Allergies Allergy Verified 12/16/23 05:13 Assessment & Plan Assessment & Plan (1) Severe recurrent major depression with psychotic features: Status: Acute Code(s): F33.3 - Major depressive disorder, recurrent, severe with psychotic symptoms (2) Alcohol use disorder, severe, dependence: Status: Acute Code(s): F10.20 - Alcohol dependence, uncomplicated (3) Opioid use disorder, severe, on maintenance therapy: Status: Acute Code(s): F11.20 - Opioid dependence, uncomplicated (4) Cocaine use disorder: Status: Acute Code(s): F14.10 - Cocaine abuse, uncomplicated (5) Homeless: Status: Acute Code(s): Z59.00 - Homelessness unspecified Plan Recurrent Major Depression Recurrent with psychotic features, Alcohol, Opiate, Cocaine Use Disorder, Homeless Individual. Plan: Admit, CV, 15 minute checks Collateral contact Continue Gabapentin, Olanzapine ?Naltrexone trial Alcohol Detox protocol Continue Methadone ?CSS for discharge planning 01/21- Decrease Lorazepam to 0.5 mg tid Ortho Eval L knee Walker to help support pt with knee pain. 01/22: Continue current management and treatment plan. 01/23: Continue current management and treatment plan. Ativan PRN instead of scheduled. 01/25: EEG Depakote 500 mg bid Ibuprofen 800 mg q8h prn arthritis pain Reason for continued inpatient stay Substantial Risk for: rapid decompensation Time Spent With Patient Time: Total time managing care of this patient today ____ minutes.
[2024-01-26 20:00] VITALS: BP 137/88; PULSE 97; TEMP 36.9; O2SAT 94
[2024-01-26] MEDS: traZODone HCL 50 MG TABLET PO (20:26)
[2024-01-26] MEDS: OLANZapine 10 MG TABLET PO (20:26)
[2024-01-26] MEDS: Ibuprofen 800 MG TABLET PO (20:29)
--- NOTE | 2024-01-27 00:36 | PC.NURSE ---
Patient was offered a PRN Trazodone for sleep at when he complained of insomnia. Patient responded it doesn't work as well as Percs, you know, you can get those all over, like over the counter. Patient accepted Trazodone. 25 minutes later, this patient requested a second Trazodone; this commercial insurance underwriter pointed out that it had only been 25 minutes since he had taken the medication and told the patient I would see him in a half an hour. Patient went to his room, and when this commercial insurance underwriter followed up a half an hour later, the patient was asleep.
[2024-01-27] MEDS: hydrOXYzine HCL 25 MG TABLET PO ×3 (03:32→19:25)
[2024-01-27] MEDS: LORazepam 0.5 MG TABLET PO (05:04)
[2024-01-27] MEDS: methADONE HCl 20 MG/2 ML ORAL.CONC 115 MG PO (07:38)
[2024-01-27] MEDS: Divalproex Sodium 500 MG TABLET.DR PO ×2 (08:05→21:24)
[2024-01-27] MEDS: Thiamine HCL 100 MG TABLET PO (08:05)
[2024-01-27] MEDS: Multivitamin TABLET 1 TAB PO (08:05)
[2024-01-27] MEDS: Folic Acid 1 MG TABLET PO (08:05)
[2024-01-27] MEDS: Gabapentin 300 MG CAPSULE PO ×3 (08:05→21:26)
[2024-01-27] MEDS: Lidocaine 4 % Patch ADH..PATCH 1 PATCH TRANSDERMA (08:07)
[2024-01-27 08:50] VITALS: BP 122/67; PULSE 120; RESP 18; TEMP 36.9; O2SAT 93
[2024-01-27] MEDS: OLANZapine 5 MG TABLET PO ×3 (11:04→19:25)
--- NOTE | 2024-01-27 16:52 | P.PNPSI_ITS ---
Subjective Subjective Date of Service: 01/27/24 Reason For Visit: Depression Subjective Notes: Conditional Voluntary Healthcare Proxy: No Guardianship: No Medical Problems Affecting Mental Status: No Interim History: EEG will re-schedule for 01/27 to improve accuracy with Lorazepam hold. Pt agrees. Discussed preference for Xanax-Education provided regarding risks. We will not be making this change during current admission. Pt reports feeling some improvement, decrease in perceptual alterations. Team report a heavy prn med use pattern. Pt struggling with current [id number] with team and changes will be made when there are availabilities. Medication Compliance: Yes Side effects from medications: No Attending Groups: Intermittent Review of Systems Acute medical concerns: No EEG pending Medical Review of Systems: unchanged Review of Systems Review of Systems chronic pain-ankle Mental Status Exam Mental Status Exam Patient Appearance: Appropriate Patient Orientation: Person, Place, Time and Situation Level of Consciousness: Alert Patient Behavior: Appropriate, Talkative, Cooperative and Good Eye Contact Mood Description: Flat Affect Description: Flat Patient Cognition Impaired: No Ability to Follow Directions: Fair Speech Pattern: Spontaneous Speech Memory Description: Episodic Impaired Hallucinations: Auditory and Visual Delusions: Paranoid Ideation and Present Perceptual Disturbances: Depersonalization, Derealization and Hallucinations Thought Process: Rumination Thought Content: positive for Perseveration and positive for Thought Blocking Depressive Symptoms: Increased Anxiety, Diff. Making Decisions, Increased Irritability, Feelings of Worthlessness, Thoughts of /Suicide, Loss of Energy and Difficulty Concentrating Abnormal Motor Activity Signs and Symptoms: Restlessness Judgement: Fair Diagnostics Vital Signs (24Hr): Vital Signs - 24 hr 01/26/24 20:00 01/27/24 08:50 Temperature 98.4 F 98.4 F Pulse Rate 97 120 H Respiratory Rate 18 Blood Pressure 137/88 122/67 Pulse Oximetry 94 93 Oxygen Delivery Method Room Air Room Air BMI result Body Mass Index 31.6 Labs 01/20/24 08:49 Imaging Radiology Impressions: ITS Impressions Knee X-Ray 01/21/24 17:40 IMPRESSION: Moderate to severe lateral as well as mild medial and patellofemoral compartment osteoarthritis. Electronically signed by: Adam Maria MD 01/22/2024 09:44 AM EDT Medications Medications Current Medications Acetaminophen (Acetaminophen 325 Mg Tablet) 650 mg PO Q6H PRN PRN Reason: Headache/Pain Mild Scale (1-3) Last Admin: 01/26/24 18:35 Dose: 650 mg Al Hydroxide/Mg Hydroxide (Magnesium Hydrox/Alum Hydrox 30 Ml Oral.Susp) 30 ml PO Q6H PRN PRN Reason: Heartburn/Nausea Benzocaine (Benzocaine 20 % Oral Gel 9 Gm Tube) 1 appl MUCOUS MEM QID PRN; Protocol PRN Reason: mouth discomfort Divalproex Sodium (Divalproex Sodium 500 Mg Tablet.Dr) 500 mg PO BID [facility] Last Admin: 01/27/24 08:05 Dose: 500 mg Folic Acid (Folic Acid 1 Mg Tablet) 1 mg PO DAILY [facility] Last Admin: 01/27/24 08:05 Dose: 1 mg Gabapentin (Gabapentin 300 Mg Capsule) 300 mg PO TID [facility] Last Admin: 01/27/24 14:07 Dose: 300 mg Hydroxyzine HCl (Hydroxyzine Hcl 25 Mg Tablet) 25 mg PO Q6H PRN PRN Reason: Anxiety Last Admin: 01/27/24 11:04 Dose: 25 mg Ibuprofen (Ibuprofen 800 Mg Tablet) 800 mg PO Q8H PRN PRN Reason: osteoarthritis pain Last Admin: 01/26/24 20:29 Dose: 800 mg Lidocaine (Lidocaine 4 % Patch Adh..Patch) 1 patch TRANSDERMA DAILY [facility]; Protocol Last Admin: 01/27/24 08:07 Dose: 1 patch Lorazepam (Lorazepam 0.5 Mg Tablet) 0.5 mg PO TID PRN PRN Reason: anxiety not responding to Vistaril Last Admin: 01/27/24 05:04 Dose: 0.5 mg Magnesium Hydroxide (Milk Of Magnesia 30 Ml Oral.Susp) 30 ml PO DAILY PRN PRN Reason: Constipation Methadone HCl (Methadone Hcl 20 Mg/2 Ml Oral.Conc) 115 mg PO DAILY@0800 [facility] Last Admin: 01/27/24 07:38 Dose: 115 mg Multivitamins/Vitamin C (Multivitamin Tablet) 1 tab PO DAILY [facility] Last Admin: 01/27/24 08:05 Dose: 1 tab Nicotine (Nicotine 21 Mg Patch.Td24) 21 mg TRANSDERMA DAILY PRN PRN Reason: smoking cessation Last Admin: 01/26/24 08:38 Dose: 21 mg Nicotine Polacrilex (Nicotine Polacrilex 2 Mg Gum) 4 mg BUCCAL Q2H PRN PRN Reason: Nicotine Cravings Last Admin: 01/26/24 08:39 Dose: 4 mg Olanzapine (Olanzapine 5 Mg Tablet) 5 mg PO TID PRN PRN Reason: agitation Last Admin: 01/27/24 15:11 Dose: 5 mg Olanzapine (Olanzapine 10 Mg Tablet) 10 mg PO BEDTIME [facility] Last Admin: 01/26/24 20:26 Dose: 10 mg Thiamine HCl (Thiamine Hcl 100 Mg Tablet) 100 mg PO DAILY [facility] Last Admin: 01/27/24 08:05 Dose: 100 mg Trazodone HCl (Trazodone Hcl 50 Mg Tablet) 50 mg PO BEDTIME MRX1 PRN PRN Reason: Insomnia Last Admin: 01/26/24 20:26 Dose: 50 mg Allergies Allergies Allergy/AdvReac Type Severity Reaction Status Date / Time No Known Allergies Allergy Verified 12/16/23 05:13 Assessment & Plan Assessment & Plan (1) Severe recurrent major depression with psychotic features: Status: Acute Code(s): F33.3 - Major depressive disorder, recurrent, severe with psychotic symptoms (2) Alcohol use disorder, severe, dependence: Status: Acute Code(s): F10.20 - Alcohol dependence, uncomplicated (3) Opioid use disorder, severe, on maintenance therapy: Status: Acute Code(s): F11.20 - Opioid dependence, uncomplicated (4) Cocaine use disorder: Status: Acute Code(s): F14.10 - Cocaine abuse, uncomplicated (5) Homeless: Status: Acute Code(s): Z59.00 - Homelessness unspecified Plan Recurrent Major Depression Recurrent with psychotic features, Alcohol, Opiate, Cocaine Use Disorder, Homeless Individual. Plan: Admit, CV, 15 minute checks Collateral contact Continue Gabapentin, Olanzapine ?Naltrexone trial Alcohol Detox protocol Continue Methadone ?CSS for discharge planning 01/21- Decrease Lorazepam to 0.5 mg tid Ortho Eval L knee Walker to help support pt with knee pain. 01/22: Continue current management and treatment plan. 01/23: Continue current management and treatment plan. Ativan PRN instead of scheduled. 01/25: EEG Depakote 500 mg bid Ibuprofen 800 mg q8h prn arthritis pain 01/26: Continue tx. Reason for continued inpatient stay Substantial Risk for: rapid decompensation Time Spent With Patient Time: Total time managing care of this patient today ____ minutes.
[2024-01-27 20:00] VITALS: BP 176/83; PULSE 100; TEMP 37.1; O2SAT 92
[2024-01-27] MEDS: OLANZapine 10 MG TABLET PO (21:25)
[2024-01-27] MEDS: traZODone HCL 50 MG TABLET PO (21:25)
[2024-01-27] MEDS: Ibuprofen 800 MG TABLET PO (21:36)
--- NOTE | 2024-01-28 | EEG_ITS ---
This is a 16-channel EEG with an EKG lead. The patient is reported drowsy during the tracing. Background EEG rhythm is theta to delta range with rare left hemispheric sharply contoured theta discharges. Cardiac lead does not reveal any significant abnormality. Photic stimulation does not produce any significant driving. Hyperventilation is not performed. IMPRESSION: Mildly abnormal EEG suggestive of underlying tendency for seizure disorder probably from left hemispheric focus. MD ROMAN Zacarias/BUFFY / [id number]
[2024-01-28] MEDS: traZODone HCL 50 MG TABLET PO ×2 (01:31→20:37)
[2024-01-28] MEDS: Acetaminophen 325 MG TABLET 650 MG PO ×2 (01:31→14:17)
[2024-01-28] MEDS: OLANZapine 5 MG TABLET PO ×2 (01:31→14:17)
[2024-01-28] MEDS: hydrOXYzine HCL 25 MG TABLET PO ×3 (01:31→20:36)
[2024-01-28 08:00] VITALS: BP 133/90; PULSE 100; RESP 16; TEMP 37.1; O2SAT 94
[2024-01-28] MEDS: methADONE HCl 20 MG/2 ML ORAL.CONC 115 MG PO (08:02)
[2024-01-28] MEDS: Folic Acid 1 MG TABLET PO (08:52)
[2024-01-28] MEDS: Gabapentin 300 MG CAPSULE PO ×3 (08:52→20:37)
[2024-01-28] MEDS: Divalproex Sodium 500 MG TABLET.DR PO ×2 (08:53→20:37)
[2024-01-28] MEDS: Multivitamin TABLET 1 TAB PO (08:53)
[2024-01-28] MEDS: Thiamine HCL 100 MG TABLET PO (08:53)
[2024-01-28] MEDS: Ibuprofen 800 MG TABLET PO (08:53)
[2024-01-28] MEDS: Nicotine Polacrilex 2 MG GUM 4 MG BUCCAL ×2 (08:54→20:36)
[2024-01-28] MEDS: Benzocaine 20 % Oral Gel 9 GM TUBE 1 APPL MUCOUS MEM (08:56)
[2024-01-28] MEDS: LORazepam 0.5 MG TABLET PO ×2 (14:17→18:14)
--- NOTE | 2024-01-28 16:20 | HO.PSYCHPN ---
Subjective Subjective Date of Service: 01/28/24 Reason For Visit: Depression Subjective Notes: Conditional Voluntary Healthcare Proxy: No Guardianship: No Medical Problems Affecting Mental Status: No Interim History: Pt completed EEG. Tolerating low dose Depakote. He is visable in milieu, interactive with peers, continues to have conflict with room-mate, however is maintaining distance and perspective Denies SI/HI/ +AH, +VH but decreased. Medication Compliance: Yes Side effects from medications: No Attending Groups: Intermittent Review of Systems Acute medical concerns: No Medical Review of Systems: unchanged Mental Status Exam Mental Status Exam Patient Appearance: Appropriate Patient Orientation: Person, Place, Time and Situation Level of Consciousness: Alert Patient Behavior: Appropriate, Talkative, Cooperative and Good Eye Contact Mood Description: Flat Affect Description: Flat Patient Cognition Impaired: No Ability to Follow Directions: Fair Speech Pattern: Spontaneous Speech Memory Description: Episodic Impaired Hallucinations: Auditory (decreased) and Visual (decreased) Perceptual Disturbances: Depersonalization, Derealization and Hallucinations Thought Process: Rumination Thought Content: positive for Perseveration and positive for Thought Blocking Depressive Symptoms: Increased Anxiety, Increased Irritability, Thoughts of /Suicide, Loss of Energy and Difficulty Concentrating Abnormal Motor Activity Signs and Symptoms: Restlessness Judgement: Fair Diagnostics Vital Signs (24Hr): Vital Signs - 24 hr 01/27/24 20:00 01/28/24 08:00 Temperature 98.8 F 98.7 F Pulse Rate 100 100 Respiratory Rate 16 Blood Pressure 176/83 H 133/90 H Pulse Oximetry 92 94 Oxygen Delivery Method Room Air Room Air BMI result Body Mass Index 31.6 Labs 01/20/24 08:49 Imaging Radiology Impressions: ITS Impressions Knee X-Ray 01/21/24 17:40 IMPRESSION: Moderate to severe lateral as well as mild medial and patellofemoral compartment osteoarthritis. Electronically signed by: Adam Maria MD 01/22/2024 09:44 AM EDT RP Medications Medications Current Medications Acetaminophen (Acetaminophen 325 Mg Tablet) 650 mg PO Q6H PRN PRN Reason: Headache/Pain Mild Scale (1-3) Last Admin: 01/28/24 14:17 Dose: 650 mg Al Hydroxide/Mg Hydroxide (Magnesium Hydrox/Alum Hydrox 30 Ml Oral.Susp) 30 ml PO Q6H PRN PRN Reason: Heartburn/Nausea Benzocaine (Benzocaine 20 % Oral Gel 9 Gm Tube) 1 appl MUCOUS MEM QID PRN; Protocol PRN Reason: mouth discomfort Last Admin: 01/28/24 08:56 Dose: 1 appl Divalproex Sodium (Divalproex Sodium 500 Mg Tablet.Dr) 500 mg PO BID [facility] Last Admin: 01/28/24 08:53 Dose: 500 mg Folic Acid (Folic Acid 1 Mg Tablet) 1 mg PO DAILY [facility] Last Admin: 01/28/24 08:52 Dose: 1 mg Gabapentin (Gabapentin 300 Mg Capsule) 300 mg PO TID [facility] Last Admin: 01/28/24 14:18 Dose: 300 mg Hydroxyzine HCl (Hydroxyzine Hcl 25 Mg Tablet) 25 mg PO Q6H PRN PRN Reason: Anxiety Last Admin: 01/28/24 08:53 Dose: 25 mg Ibuprofen (Ibuprofen 800 Mg Tablet) 800 mg PO Q8H PRN PRN Reason: osteoarthritis pain Last Admin: 01/28/24 08:53 Dose: 800 mg Lidocaine (Lidocaine 4 % Patch Adh..Patch) 1 patch TRANSDERMA DAILY [facility]; Protocol Last Admin: 01/27/24 08:07 Dose: 1 patch Lorazepam (Lorazepam 0.5 Mg Tablet) 0.5 mg PO TID PRN PRN Reason: anxiety not responding to Vistaril Last Admin: 01/28/24 14:17 Dose: 0.5 mg Magnesium Hydroxide (Milk Of Magnesia 30 Ml Oral.Susp) 30 ml PO DAILY PRN PRN Reason: Constipation Methadone HCl (Methadone Hcl 20 Mg/2 Ml Oral.Conc) 115 mg PO DAILY@0800 [facility] Last Admin: 01/28/24 08:02 Dose: 115 mg Multivitamins/Vitamin C (Multivitamin Tablet) 1 tab PO DAILY [facility] Last Admin: 01/28/24 08:53 Dose: 1 tab Nicotine (Nicotine 21 Mg Patch.Td24) 21 mg TRANSDERMA DAILY PRN PRN Reason: smoking cessation Last Admin: 01/26/24 08:38 Dose: 21 mg Nicotine Polacrilex (Nicotine Polacrilex 2 Mg Gum) 4 mg BUCCAL Q2H PRN PRN Reason: Nicotine Cravings Last Admin: 01/28/24 08:54 Dose: 4 mg Olanzapine (Olanzapine 5 Mg Tablet) 5 mg PO TID PRN PRN Reason: agitation Last Admin: 10/31/24 14:17 Dose: 5 mg Olanzapine (Olanzapine 10 Mg Tablet) 10 mg PO BEDTIME [facility] Last Admin: 01/27/24 21:25 Dose: 10 mg Thiamine HCl (Thiamine Hcl 100 Mg Tablet) 100 mg PO DAILY [facility] Last Admin: 01/28/24 08:53 Dose: 100 mg Trazodone HCl (Trazodone Hcl 50 Mg Tablet) 50 mg PO BEDTIME MRX1 PRN PRN Reason: Insomnia Last Admin: 01/28/24 01:31 Dose: 50 mg Allergies Allergies Allergy/AdvReac Type Severity Reaction Status Date / Time No Known Allergies Allergy Verified 12/16/23 05:13 Assessment & Plan Assessment & Plan (1) Severe recurrent major depression with psychotic features: Status: Acute Code(s): F33.3 - Major depressive disorder, recurrent, severe with psychotic symptoms (2) Alcohol use disorder, severe, dependence: Status: Acute Code(s): F10.20 - Alcohol dependence, uncomplicated (3) Opioid use disorder, severe, on maintenance therapy: Status: Acute Code(s): F11.20 - Opioid dependence, uncomplicated (4) Cocaine use disorder: Status: Acute Code(s): F14.10 - Cocaine abuse, uncomplicated (5) Homeless: Status: Acute Code(s): Z59.00 - Homelessness unspecified Plan Recurrent Major Depression Recurrent with psychotic features, Alcohol, Opiate, Cocaine Use Disorder, Homeless Individual. Plan: Admit, CV, 15 minute checks Collateral contact Continue Gabapentin, Olanzapine ?Naltrexone trial Alcohol Detox protocol Continue Methadone ?CSS for discharge planning 01/21- Decrease Lorazepam to 0.5 mg tid Ortho Eval L knee Walker to help support pt with knee pain. 01/22: Continue current management and treatment plan. 01/23: Continue current management and treatment plan. Ativan PRN instead of scheduled. 01/25: EEG Depakote 500 mg bid Ibuprofen 800 mg q8h prn arthritis pain 01/27: Continue tx. Reason for continued inpatient stay Substantial Risk for: rapid decompensation and med/psych decompensation Time Spent With Patient Time: Total time managing care of this patient today ____ minutes.
[2024-01-28 20:00] VITALS: BP 161/74; PULSE 90; RESP 18; TEMP 36.3; O2SAT 93
[2024-01-28] MEDS: OLANZapine 10 MG TABLET PO (20:37)
[2024-01-29] MEDS: methADONE HCl 20 MG/2 ML ORAL.CONC 115 MG PO (07:57)
[2024-01-29 08:00] VITALS: BP 145/87; PULSE 98; RESP 16; TEMP 36.4; O2SAT 94
[2024-01-29] MEDS: Benzocaine 20 % Oral Gel 9 GM TUBE 1 APPL MUCOUS MEM (08:55)
[2024-01-29] MEDS: Ibuprofen 800 MG TABLET PO (08:56)
[2024-01-29] MEDS: Gabapentin 300 MG CAPSULE PO ×3 (08:56→21:30)
[2024-01-29] MEDS: Divalproex Sodium 500 MG TABLET.DR PO ×2 (08:56→21:30)
[2024-01-29] MEDS: Multivitamin TABLET 1 TAB PO (08:56)
[2024-01-29] MEDS: hydrOXYzine HCL 25 MG TABLET PO ×2 (08:57→21:29)
[2024-01-29] MEDS: Thiamine HCL 100 MG TABLET PO (08:57)
[2024-01-29] MEDS: Nicotine 21 MG PATCH.TD24 TRANSDERMA (09:00)
[2024-01-29] MEDS: Folic Acid 1 MG TABLET PO (09:01)
--- NOTE | 2024-01-29 12:44 | HO.PSYCHPN ---
Subjective Subjective Date of Service: 01/29/24 Reason For Visit: Depression Subjective Notes: Conditional Voluntary Healthcare Proxy: No Guardianship: No Medical Problems Affecting Mental Status: No Interim History: Mildly abnormal EEG suggests L hemispheric focus w/probable seizure d/o. Discussed neuro consult for pt and he agrees. Tolerating Depakote. Pt reports strong family hx of seizures, epilepsy. Reports ankle edema with pain-will trial a compression stocking for added support-pt reports by history this has worked well. Continues to have difficulty with his [id number] will move him today they report when availabilities arise. Review of meds. Medication Compliance: Yes Side effects from medications: No Attending Groups: Intermittent Review of Systems Acute medical concerns: No Medical Review of Systems: unchanged Review of Systems Review of Systems Yes all other systems are reviewed and are negative Mental Status Exam Mental Status Exam Patient Appearance: Appropriate Patient Orientation: Person, Place, Time and Situation Level of Consciousness: Alert Patient Behavior: Appropriate, Talkative, Cooperative and Good Eye Contact Mood Description: Flat Affect Description: Flat Patient Cognition Impaired: No Ability to Follow Directions: Fair Speech Pattern: Spontaneous Speech Memory Description: Episodic Impaired Hallucinations: Auditory (decreased) and Visual (decreased) Perceptual Disturbances: Depersonalization, Derealization and Hallucinations Thought Process: Rumination Thought Content: positive for Perseveration and positive for Thought Blocking Depressive Symptoms: Increased Anxiety, Increased Irritability, Thoughts of /Suicide, Loss of Energy and Difficulty Concentrating Abnormal Motor Activity Signs and Symptoms: Restlessness Judgement: Fair Diagnostics Vital Signs (24Hr): Vital Signs - 24 hr 01/28/24 20:00 01/29/24 08:00 Temperature 97.3 F 97.5 F Pulse Rate 90 98 Respiratory Rate 18 16 Blood Pressure 161/74 H 145/87 H Pulse Oximetry 93 94 Oxygen Delivery Method Room Air Room Air BMI result Body Mass Index 31.6 Labs 01/20/24 08:49 Imaging Radiology Impressions: ITS Impressions Knee X-Ray 01/21/24 17:40 IMPRESSION: Moderate to severe lateral as well as mild medial and patellofemoral compartment osteoarthritis. Electronically signed by: Adam Maria MD 01/22/2024 09:44 AM EDT RP Medications Medications Current Medications Acetaminophen (Acetaminophen 325 Mg Tablet) 650 mg PO Q6H PRN PRN Reason: Headache/Pain Mild Scale (1-3) Last Admin: 10/31/24 14:17 Dose: 650 mg Al Hydroxide/Mg Hydroxide (Magnesium Hydrox/Alum Hydrox 30 Ml Oral.Susp) 30 ml PO Q6H PRN PRN Reason: Heartburn/Nausea Benzocaine (Benzocaine 20 % Oral Gel 9 Gm Tube) 1 appl MUCOUS MEM QID PRN; Protocol PRN Reason: mouth discomfort Last Admin: 01/29/24 08:55 Dose: 1 appl Divalproex Sodium (Divalproex Sodium 500 Mg Tablet.Dr) 500 mg PO BID [facility] Last Admin: 01/29/24 08:56 Dose: 500 mg Folic Acid (Folic Acid 1 Mg Tablet) 1 mg PO DAILY [facility] Last Admin: 01/29/24 09:01 Dose: 1 mg Gabapentin (Gabapentin 300 Mg Capsule) 300 mg PO TID [facility] Last Admin: 01/29/24 08:56 Dose: 300 mg Hydroxyzine HCl (Hydroxyzine Hcl 25 Mg Tablet) 25 mg PO Q6H PRN PRN Reason: Anxiety Last Admin: 01/29/24 08:57 Dose: 25 mg Ibuprofen (Ibuprofen 800 Mg Tablet) 800 mg PO Q8H PRN PRN Reason: osteoarthritis pain Last Admin: 01/29/24 08:56 Dose: 800 mg Lidocaine (Lidocaine 4 % Patch Adh..Patch) 1 patch TRANSDERMA DAILY [facility]; Protocol Last Admin: 01/28/24 19:39 Dose: Not Given Lorazepam (Lorazepam 0.5 Mg Tablet) 0.5 mg PO TID PRN PRN Reason: anxiety not responding to Vistaril Last Admin: 01/28/24 18:14 Dose: 0.5 mg Magnesium Hydroxide (Milk Of Magnesia 30 Ml Oral.Susp) 30 ml PO DAILY PRN PRN Reason: Constipation Methadone HCl (Methadone Hcl 20 Mg/2 Ml Oral.Conc) 115 mg PO DAILY@0800 [facility] Last Admin: 01/29/24 07:57 Dose: 115 mg Multivitamins/Vitamin C (Multivitamin Tablet) 1 tab PO DAILY [facility] Last Admin: 01/29/24 08:56 Dose: 1 tab Nicotine (Nicotine 21 Mg Patch.Td24) 21 mg TRANSDERMA DAILY PRN PRN Reason: smoking cessation Last Admin: 01/29/24 09:00 Dose: 21 mg Nicotine Polacrilex (Nicotine Polacrilex 2 Mg Gum) 4 mg BUCCAL Q2H PRN PRN Reason: Nicotine Cravings Last Admin: 01/28/24 20:36 Dose: 4 mg Olanzapine (Olanzapine 5 Mg Tablet) 5 mg PO TID PRN PRN Reason: agitation Last Admin: 01/28/24 14:17 Dose: 5 mg Olanzapine (Olanzapine 10 Mg Tablet) 10 mg PO BEDTIME [facility] Last Admin: 01/28/24 20:37 Dose: 10 mg Thiamine HCl (Thiamine Hcl 100 Mg Tablet) 100 mg PO DAILY [facility] Last Admin: 01/29/24 08:57 Dose: 100 mg Trazodone HCl (Trazodone Hcl 50 Mg Tablet) 50 mg PO BEDTIME MRX1 PRN PRN Reason: Insomnia Last Admin: 01/28/24 20:37 Dose: 50 mg Allergies Allergies Allergy/AdvReac Type Severity Reaction Status Date / Time No Known Allergies Allergy Verified 12/16/23 05:13 Assessment & Plan Assessment & Plan (1) Severe recurrent major depression with psychotic features: Status: Acute Code(s): F33.3 - Major depressive disorder, recurrent, severe with psychotic symptoms (2) Alcohol use disorder, severe, dependence: Status: Acute Code(s): F10.20 - Alcohol dependence, uncomplicated (3) Opioid use disorder, severe, on maintenance therapy: Status: Acute Code(s): F11.20 - Opioid dependence, uncomplicated (4) Cocaine use disorder: Status: Acute Code(s): F14.10 - Cocaine abuse, uncomplicated (5) Homeless: Status: Acute Code(s): Z59.00 - Homelessness unspecified Plan Recurrent Major Depression Recurrent with psychotic features, Alcohol, Opiate, Cocaine Use Disorder, Homeless Individual. Plan: Admit, CV, 15 minute checks Collateral contact Continue Gabapentin, Olanzapine ?Naltrexone trial Alcohol Detox protocol Continue Methadone ?CSS for discharge planning 01/21- Decrease Lorazepam to 0.5 mg tid Ortho Eval L knee Walker to help support pt with knee pain. 01/22: Continue current management and treatment plan. 01/23: Continue current management and treatment plan. Ativan PRN instead of scheduled. 01/25: EEG Depakote 500 mg bid Ibuprofen 800 mg q8h prn arthritis pain 01/28: Compression Stockings for added ankle support Neuro consult-EEG positive for seizure d/o Continue Depakote Increase Olanzapine to 20 mg HS Reason for continued inpatient stay Substantial Risk for: rapid decompensation and med/psych decompensation Time Spent With Patient Time: Total time managing care of this patient today ____ minutes.
[2024-01-29 20:00] VITALS: BP 144/77; PULSE 102; RESP 16; TEMP 36.2; O2SAT 93
[2024-01-29] MEDS: Acetaminophen 325 MG TABLET 650 MG PO (21:29)
[2024-01-29] MEDS: LORazepam 0.5 MG TABLET PO (21:29)
[2024-01-29] MEDS: traZODone HCL 50 MG TABLET PO (21:30)
[2024-01-29] MEDS: OLANZapine 10 MG TABLET 20 MG PO (21:30)
[2024-01-30] MEDS: traZODone HCL 50 MG TABLET PO ×2 (00:11→20:56)
[2024-01-30] MEDS: OLANZapine 5 MG TABLET PO ×3 (00:11→18:38)
[2024-01-30] MEDS: methADONE HCl 20 MG/2 ML ORAL.CONC 115 MG PO (08:10)
[2024-01-30 08:30] VITALS: BP 133/69; PULSE 99; TEMP 36.6; O2SAT 92
--- NOTE | 2024-01-30 08:42 | HO.PSYCHPN ---
Subjective Subjective Date of Service: 01/30/24 Reason For Visit: Depression Interim History: Met with patient; discussed with team; reviewed chart Patient says he is okay and has no complaints or requests. Intermittently demanding in the milieu. Mental Status Exam Mental Status Exam Patient Appearance: Appropriate Patient Orientation: Person, Place, Time and Situation Level of Consciousness: Alert Patient Behavior: Appropriate, Talkative, Cooperative and Good Eye Contact Mood Description: Flat Affect Description: Flat Patient Cognition Impaired: No Ability to Follow Directions: Fair Speech Pattern: Spontaneous Speech Memory Description: Episodic Impaired Hallucinations: Auditory (decreased) and Visual (decreased) Perceptual Disturbances: Depersonalization, Derealization and Hallucinations Thought Process: Rumination Thought Content: positive for Perseveration and positive for Thought Blocking Depressive Symptoms: Increased Anxiety, Increased Irritability, Thoughts of /Suicide, Loss of Energy and Difficulty Concentrating Abnormal Motor Activity Signs and Symptoms: Restlessness Judgement and Insight: Impaired Diagnostics Vital Signs (24Hr): Vital Signs - 24 hr 01/29/24 20:00 01/30/24 08:30 Temperature 97.1 F 98 F Pulse Rate 102 H 99 Respiratory Rate 16 Blood Pressure 144/77 H 133/69 Pulse Oximetry 93 92 Oxygen Delivery Method Room Air Room Air BMI result Body Mass Index 31.6 Labs 01/20/24 08:49 Imaging Radiology Impressions: ITS Impressions Knee X-Ray 01/21/24 17:40 IMPRESSION: Moderate to severe lateral as well as mild medial and patellofemoral compartment osteoarthritis. Electronically signed by: Adam Maria MD 01/22/2024 09:44 AM EDT Medications Medications Current Medications Acetaminophen (Acetaminophen 325 Mg Tablet) 650 mg PO Q6H PRN PRN Reason: Headache/Pain Mild Scale (1-3) Last Admin: 01/29/24 21:29 Dose: 650 mg Al Hydroxide/Mg Hydroxide (Magnesium Hydrox/Alum Hydrox 30 Ml Oral.Susp) 30 ml PO Q6H PRN PRN Reason: Heartburn/Nausea Benzocaine (Benzocaine 20 % Oral Gel 9 Gm Tube) 1 appl MUCOUS MEM QID PRN; Protocol PRN Reason: mouth discomfort Last Admin: 01/29/24 08:55 Dose: 1 appl Divalproex Sodium (Divalproex Sodium 500 Mg Tablet.) 500 mg PO BID [facility] Last Admin: 01/29/24 21:30 Dose: 500 mg Folic Acid (Folic Acid 1 Mg Tablet) 1 mg PO DAILY [facility] Last Admin: 01/29/24 09:01 Dose: 1 mg Gabapentin (Gabapentin 300 Mg Capsule) 300 mg PO TID [facility] 234 [facility]S [facility] Last Admin: 01/29/24 21:30 Dose: 300 mg Hydroxyzine HCl (Hydroxyzine Hcl 25 Mg Tablet) 25 mg PO Q6H PRN PRN Reason: Anxiety Last Admin: 01/29/24 21:29 Dose: 25 mg Ibuprofen (Ibuprofen 800 Mg Tablet) 800 mg PO Q8H PRN PRN Reason: osteoarthritis pain Last Admin: 01/29/24 08:56 Dose: 800 mg Lidocaine (Lidocaine 4 % Patch Adh..Patch) 1 patch TRANSDERMA DAILY [facility] 234 [facility]S [facility]; Protocol Last Admin: 01/29/24 17:18 Dose: Not Given Lorazepam (Lorazepam 0.5 Mg Tablet) 0.5 mg PO TID PRN PRN Reason: anxiety not responding to Vistaril Last Admin: 01/29/24 21:29 Dose: 0.5 mg Magnesium Hydroxide (Milk Of Magnesia 30 Ml Oral.Susp) 30 ml PO DAILY PRN PRN Reason: Constipation Methadone HCl (Methadone Hcl 20 Mg/2 Ml Oral.Conc) 115 mg PO DAILY@0800 [facility] Last Admin: 01/30/24 08:10 Dose: 115 mg Multivitamins/Vitamin C (Multivitamin Tablet) 1 tab PO DAILY [facility] 234 [facility] Last Admin: 01/29/24 08:56 Dose: 1 tab Nicotine (Nicotine 21 Mg Patch.Td24) 21 mg TRANSDERMA DAILY PRN PRN Reason: smoking cessation Last Admin: 01/29/24 09:00 Dose: 21 mg Nicotine Polacrilex (Nicotine Polacrilex 2 Mg Gum) 4 mg BUCCAL Q2H PRN PRN Reason: Nicotine Cravings Last Admin: 01/28/24 20:36 Dose: 4 mg Olanzapine (Olanzapine 5 Mg Tablet) 5 mg PO TID PRN PRN Reason: agitation Last Admin: 01/30/24 00:11 Dose: 5 mg Olanzapine (Olanzapine 10 Mg Tablet) 20 mg PO BEDTIME [facility] 234 [facility]S [facility] Last Admin: 01/29/24 21:30 Dose: 20 mg Thiamine HCl (Thiamine Hcl 100 Mg Tablet) 100 mg PO DAILY [facility] 234 [facility]S [facility] Last Admin: 01/29/24 08:57 Dose: 100 mg Trazodone HCl (Trazodone Hcl 50 Mg Tablet) 50 mg PO BEDTIME MRX1 PRN PRN Reason: Insomnia Last Admin: 01/30/24 00:11 Dose: 50 mg Allergies Allergies Allergy/AdvReac Type Severity Reaction Status Date / Time No Known Allergies Allergy Verified 12/16/23 05:13 Assessment & Plan Assessment & Plan (1) Severe recurrent major depression with psychotic features: Status: Acute Code(s): F33.3 - Major depressive disorder, recurrent, severe with psychotic symptoms (2) Alcohol use disorder, severe, dependence: Status: Acute Code(s): F10.20 - Alcohol dependence, uncomplicated (3) Opioid use disorder, severe, on maintenance therapy: Status: Acute Code(s): F11.20 - Opioid dependence, uncomplicated (4) Cocaine use disorder: Status: Acute Code(s): F14.10 - Cocaine abuse, uncomplicated (5) Homeless: Status: Acute Code(s): Z59.00 - Homelessness unspecified Plan Recurrent Major Depression Recurrent with psychotic features, Alcohol, Opiate, Cocaine Use Disorder, Homeless Individual. Plan: Admit, CV, 15 minute checks Collateral contact Continue Gabapentin, Olanzapine ?Naltrexone trial Alcohol Detox protocol Continue Methadone ?CSS for discharge planning 01/21- Decrease Lorazepam to 0.5 mg tid Ortho Eval L knee Walker to help support pt with knee pain. 01/22: Continue current management and treatment plan. 01/23: Continue current management and treatment plan. Ativan PRN instead of scheduled. 01/25: EEG Depakote 500 mg bid Ibuprofen 800 mg q8h prn arthritis pain 01/28: Compression Stockings for added ankle support Neuro consult-EEG positive for seizure d/o Continue Depakote Increase Olanzapine to 20 mg HS 01/29 olanzapine recently increased; will leave medication regimen as is for now continue current treatment plan Patient educated on: diagnosis Informed Consent: understands Reason for continued inpatient stay Substantial Risk for: rapid decompensation Time Spent With Patient Time: Total time managing care of this patient today ____ minutes.
[2024-01-30] MEDS: Multivitamin TABLET 1 TAB PO (09:26)
[2024-01-30] MEDS: Thiamine HCL 100 MG TABLET PO (09:26)
[2024-01-30] MEDS: Ibuprofen 800 MG TABLET PO ×2 (09:26→18:38)
[2024-01-30] MEDS: hydrOXYzine HCL 25 MG TABLET PO ×3 (09:26→20:56)
[2024-01-30] MEDS: Gabapentin 300 MG CAPSULE PO ×3 (09:27→20:55)
[2024-01-30] MEDS: Lidocaine 4 % Patch ADH..PATCH 1 PATCH TRANSDERMA (09:27)
[2024-01-30] MEDS: Folic Acid 1 MG TABLET PO (09:27)
[2024-01-30] MEDS: Divalproex Sodium 500 MG TABLET.DR PO ×2 (09:27→20:55)
[2024-01-30] MEDS: Nicotine 21 MG PATCH.TD24 TRANSDERMA (13:08)
[2024-01-30] MEDS: LORazepam 0.5 MG TABLET PO ×2 (13:09→20:55)
[2024-01-30 20:00] VITALS: BP 138/81; PULSE 99; RESP 18; TEMP 37.1; O2SAT 94
[2024-01-30] MEDS: OLANZapine 10 MG TABLET 20 MG PO (20:55)
[2024-01-31] MEDS: LORazepam 0.5 MG TABLET PO ×3 (05:08→20:00)
[2024-01-31] MEDS: Ibuprofen 800 MG TABLET PO ×2 (07:04→20:05)
[2024-01-31] MEDS: Acetaminophen 325 MG TABLET 650 MG PO ×2 (07:05→20:05)
[2024-01-31] MEDS: methADONE HCl 20 MG/2 ML ORAL.CONC 115 MG PO (07:54)
[2024-01-31 08:05] VITALS: BP 130/70; PULSE 101; TEMP 36.9; O2SAT 96
[2024-01-31] MEDS: Gabapentin 300 MG CAPSULE PO ×3 (09:23→20:05)
[2024-01-31] MEDS: Folic Acid 1 MG TABLET PO (09:23)
[2024-01-31] MEDS: hydrOXYzine HCL 25 MG TABLET PO ×3 (09:23→20:05)
[2024-01-31] MEDS: Multivitamin TABLET 1 TAB PO (09:23)
[2024-01-31] MEDS: Nicotine 21 MG PATCH.TD24 TRANSDERMA (09:24)
[2024-01-31] MEDS: Lidocaine 4 % Patch ADH..PATCH 1 PATCH TRANSDERMA (09:24)
[2024-01-31] MEDS: Divalproex Sodium 500 MG TABLET.DR PO ×2 (09:24→20:04)
[2024-01-31] MEDS: Thiamine HCL 100 MG TABLET PO (09:26)
--- NOTE | 2024-01-31 10:29 | HO.PSYCHPN ---
Subjective Subjective Date of Service: 01/31/24 Reason For Visit: Depression Interim History: Met with patient; discussed with team Patient reports that he is doing okay and says he is thankful for help received on the unit. Agrees to leave current medication regimen as is. Patient says that he used to be on methadone dose that was much higher, 140 or 145 mg and asks if his dose can be titrated. [employer] reviewed medications and agreed to start titrating Mental Status Exam Mental Status Exam Patient Appearance: Appropriate Patient Orientation: Person, Place, Time and Situation Level of Consciousness: Alert Patient Behavior: Appropriate, Talkative, Cooperative and Good Eye Contact Mood Description: Flat Affect Description: Flat Patient Cognition Impaired: No Ability to Follow Directions: Fair Speech Pattern: Spontaneous Speech Memory Description: Episodic Impaired Hallucinations: Auditory (decreased) and Visual (decreased) Perceptual Disturbances: Depersonalization, Derealization and Hallucinations Thought Process: Rumination Thought Content: positive for Perseveration and positive for Thought Blocking Depressive Symptoms: Increased Anxiety, Increased Irritability, Thoughts of /Suicide, Loss of Energy and Difficulty Concentrating Abnormal Motor Activity Signs and Symptoms: Restlessness Judgement and Insight: Impaired Diagnostics Vital Signs (24Hr): Vital Signs - 24 hr 01/30/24 20:00 01/31/24 08:05 Temperature 98.7 F 98.5 F Pulse Rate 99 101 H Respiratory Rate 18 Blood Pressure 138/81 130/70 Pulse Oximetry 94 96 Oxygen Delivery Method Room Air Room Air BMI result Body Mass Index 31.6 Labs 01/20/24 08:49 Imaging Radiology Impressions: ITS Impressions Knee X-Ray 01/21/24 17:40 IMPRESSION: Moderate to severe lateral as well as mild medial and patellofemoral compartment osteoarthritis. Electronically signed by: Adam Maria MD 01/22/2024 09:44 AM EDT Medications Medications Current Medications Acetaminophen (Acetaminophen 325 Mg Tablet) 650 mg PO Q6H PRN PRN Reason: Headache/Pain Mild Scale (1-3) Last Admin: 01/31/24 07:05 Dose: 650 mg Al Hydroxide/Mg Hydroxide (Magnesium Hydrox/Alum Hydrox 30 Ml Oral.Susp) 30 ml PO Q6H PRN PRN Reason: Heartburn/Nausea Benzocaine (Benzocaine 20 % Oral Gel 9 Gm Tube) 1 appl MUCOUS MEM QID PRN; Protocol PRN Reason: mouth discomfort Last Admin: 01/29/24 08:55 Dose: 1 appl Divalproex Sodium (Divalproex Sodium 500 Mg Tablet.Dr) 500 mg PO BID [facility] Last Admin: 01/31/24 09:24 Dose: 500 mg Folic Acid (Folic Acid 1 Mg Tablet) 1 mg PO DAILY [facility] Last Admin: 01/31/24 09:23 Dose: 1 mg Gabapentin (Gabapentin 300 Mg Capsule) 300 mg PO TID [facility] Last Admin: 01/31/24 09:23 Dose: 300 mg Hydroxyzine HCl (Hydroxyzine Hcl 25 Mg Tablet) 25 mg PO Q6H PRN PRN Reason: Anxiety Last Admin: 01/31/24 09:23 Dose: 25 mg Ibuprofen (Ibuprofen 800 Mg Tablet) 800 mg PO Q8H PRN PRN Reason: osteoarthritis pain Last Admin: 01/31/24 07:04 Dose: 800 mg Lidocaine (Lidocaine 4 % Patch Adh..Patch) 1 patch TRANSDERMA DAILY [facility]; Protocol Last Admin: 01/31/24 09:24 Dose: 1 patch Lorazepam (Lorazepam 0.5 Mg Tablet) 0.5 mg PO TID PRN PRN Reason: anxiety not responding to Vistaril Last Admin: 01/31/24 05:08 Dose: 0.5 mg Magnesium Hydroxide (Milk Of Magnesia 30 Ml Oral.Susp) 30 ml PO DAILY PRN PRN Reason: Constipation Methadone HCl (Methadone Hcl 20 Mg/2 Ml Oral.Conc) 115 mg PO DAILY@0800 [facility] Last Admin: 01/31/24 07:54 Dose: 115 mg Multivitamins/Vitamin C (Multivitamin Tablet) 1 tab PO DAILY [facility] Last Admin: 01/31/24 09:23 Dose: 1 tab Nicotine (Nicotine 21 Mg Patch.Td24) 21 mg TRANSDERMA DAILY PRN PRN Reason: smoking cessation Last Admin: 01/31/24 09:24 Dose: 21 mg Nicotine Polacrilex (Nicotine Polacrilex 2 Mg Gum) 4 mg BUCCAL Q2H PRN PRN Reason: Nicotine Cravings Last Admin: 01/28/24 20:36 Dose: 4 mg Olanzapine (Olanzapine 5 Mg Tablet) 5 mg PO TID PRN PRN Reason: agitation Last Admin: 01/30/24 18:38 Dose: 5 mg Olanzapine (Olanzapine 10 Mg Tablet) 20 mg PO BEDTIME [facility] Last Admin: 01/30/24 20:55 Dose: 20 mg Thiamine HCl (Thiamine Hcl 100 Mg Tablet) 100 mg PO DAILY [facility] Last Admin: 01/31/24 09:26 Dose: 100 mg Trazodone HCl (Trazodone Hcl 50 Mg Tablet) 50 mg PO BEDTIME MRX1 PRN PRN Reason: Insomnia Last Admin: 01/30/24 20:56 Dose: 50 mg Allergies Allergies Allergy/AdvReac Type Severity Reaction Status Date / Time No Known Allergies Allergy Verified 12/16/23 05:13 Assessment & Plan Assessment & Plan (1) Severe recurrent major depression with psychotic features: Status: Acute Code(s): F33.3 - Major depressive disorder, recurrent, severe with psychotic symptoms (2) Alcohol use disorder, severe, dependence: Status: Acute Code(s): F10.20 - Alcohol dependence, uncomplicated (3) Opioid use disorder, severe, on maintenance therapy: Status: Acute Code(s): F11.20 - Opioid dependence, uncomplicated (4) Cocaine use disorder: Status: Acute Code(s): F14.10 - Cocaine abuse, uncomplicated (5) Homeless: Status: Acute Code(s): Z59.00 - Homelessness unspecified Plan Recurrent Major Depression Recurrent with psychotic features, Alcohol, Opiate, Cocaine Use Disorder, Homeless Individual. Plan: Admit, CV, 15 minute checks Collateral contact Continue Gabapentin, Olanzapine ?Naltrexone trial Alcohol Detox protocol Continue Methadone ?CSS for discharge planning 01/21- Decrease Lorazepam to 0.5 mg tid Ortho Eval L knee Walker to help support pt with knee pain. 01/22: Continue current management and treatment plan. 01/23: Continue current management and treatment plan. Ativan PRN instead of scheduled. 01/25: EEG Depakote 500 mg bid Ibuprofen 800 mg q8h prn arthritis pain 01/28: Compression Stockings for added ankle support Neuro consult-EEG positive for seizure d/o Continue Depakote Increase Olanzapine to 20 mg HS 01/29 olanzapine recently increased; will leave medication regimen as is for now continue current treatment plan 01/30 continue current treatment plan however will increase methadone to 120 mg Patient educated on: diagnosis, medication risk/benefits and substance abuse Informed Consent: understands Reason for continued inpatient stay Substantial Risk for: rapid decompensation Time Spent With Patient Time: Total time managing care of this patient today ____ minutes.
[2024-01-31] MEDS: Milk of Magnesia 30 ML ORAL.SUSP PO (10:44)
[2024-01-31] MEDS: OLANZapine 5 MG TABLET PO (15:47)
[2024-01-31 20:00] VITALS: BP 135/63; PULSE 100; RESP 17; TEMP 36.3; O2SAT 93
[2024-01-31] MEDS: OLANZapine 10 MG TABLET 20 MG PO (20:04)
[2024-01-31] MEDS: Nicotine Polacrilex 2 MG GUM 4 MG BUCCAL (20:05)
[2024-01-31] MEDS: traZODone HCL 50 MG TABLET PO (20:05)
[2024-02-01] MEDS: LORazepam 0.5 MG TABLET PO (06:57)
[2024-02-01] MEDS: hydrOXYzine HCL 25 MG TABLET PO ×2 (06:58→20:26)
[2024-02-01] MEDS: methADONE HCl 20 MG/2 ML ORAL.CONC 120 MG PO (08:01)
[2024-02-01 08:16] VITALS: BP 138/84; PULSE 105; RESP 16; TEMP 36.1; O2SAT 91
[2024-02-01] MEDS: Thiamine HCL 100 MG TABLET PO (08:52)
[2024-02-01] MEDS: Folic Acid 1 MG TABLET PO (08:52)
[2024-02-01] MEDS: Gabapentin 300 MG CAPSULE PO ×3 (08:52→20:26)
[2024-02-01] MEDS: Multivitamin TABLET 1 TAB PO (08:52)
[2024-02-01] MEDS: Divalproex Sodium 500 MG TABLET.DR PO ×2 (08:52→20:26)
[2024-02-01] MEDS: Lidocaine 4 % Patch ADH..PATCH 1 PATCH TRANSDERMA (08:53)
[2024-02-01] MEDS: Nicotine 21 MG PATCH.TD24 TRANSDERMA (08:55)
--- NOTE | 2024-02-01 09:56 | PM.NEUROCN ---
History of Present Illness Data of Consult Service Date: 02/01/24 Primary Care Provider: None Physician HPI Reason for consult: Seizure disorder 53 years old man who apparently has history of alcohol and cocaine abuse was admitted on psychiatric floor for severe depression suicidal ideation. He also reported that few months ago it started having sudden jolts of his body. He said that those were seizures but he has not seen any neurologist or a doctor for that problem. It was not clear if he ever had an episode of generalized convulsion or passing out related to that. Recent EEG was mildly abnormal prompting this consultation. Review of Systems Review of Systems: Depression suicidal ideation PMFSH Past Medical History Medical History (Updated 02/01/24 @ 09:58 by Magaly Paredes MD) Homeless Cocaine use disorder Opioid use disorder, severe, on maintenance therapy Alcohol use disorder, severe, dependence Severe recurrent major depression with psychotic features No known health problems Social History Social History Household Members: None Housing: Homeless Do you presently have visiting nurse or other home services: No Patient Tobacco Use Status: Current everyday Tobacco user Tobacco use type: Cigarette Cigarette Packs Per Day: 2 Cigarettes Per Day: 40.0 Years Smoked: ''many years'' Smoked in Last 30 Days: Yes e-Cigarette/Vaping Use: Never Used Patient Interested in Nicotine Replacement: Yes (gum) Second Hand Smoke Exposure: Yes Use of substances other than those prescribed or required for medical reasons: Yes Substance Use Type: Crack/Cocaine and Other Substance Use Frequency: Daily Last Used Substance: Just Prior to Admission Currently Displaying Signs/Symptoms of Drug Intoxication Withdrawal: No Any prior treatment program specific to substance use: Yes Have you been hit, kicked, punched, or otherwise hurt by someone within the past year? If so, by whom?: No Do you feel safe in your current relationship?: Yes Is there a partner from a previous relationship who is making you feel unsafe now?: No Are you made to feel afraid or neglected: No Spiritual Healthcare Practices: none identified [facility] Practices: none identified Cultural Healthcare Practices: none identified Advance Directives: No Advance Directives Information Provided: Yes Do you have thoughts of harming others: None Do you have a plan to hurt others: No Plan Recently lost weight without trying: No How much weight loss: Not applicable Eating poorly because of decreased appetite: No Nutrition screen score: 0 Nutrition Risks: No Nutritional Risk Poor oral hygiene: No service: No Sexual orientation: Straight/Heterosexual Meds Allergies Allergy/AdvReac Type Severity Reaction Status Date / Time No Known Allergies Allergy Verified 12/16/23 05:13 Active Medications: Current Medications Acetaminophen (Acetaminophen 325 Mg Tablet) 650 mg PO Q6H PRN PRN Reason: Headache/Pain Mild Scale (1-3) Last Admin: 01/31/24 20:05 Dose: 650 mg Al Hydroxide/Mg Hydroxide (Magnesium Hydrox/Alum Hydrox 30 Ml Oral.Susp) 30 ml PO Q6H PRN PRN Reason: Heartburn/Nausea Benzocaine (Benzocaine 20 % Oral Gel 9 Gm Tube) 1 appl MUCOUS MEM QID PRN; Protocol PRN Reason: mouth discomfort Last Admin: 01/29/24 08:55 Dose: 1 appl Divalproex Sodium (Divalproex Sodium 500 Mg Tablet.Dr) 500 mg PO BID [facility] Last Admin: 02/01/24 08:52 Dose: 500 mg Folic Acid (Folic Acid 1 Mg Tablet) 1 mg PO DAILY [facility] Last Admin: 02/01/24 08:52 Dose: 1 mg Gabapentin (Gabapentin 300 Mg Capsule) 300 mg PO TID [facility] Last Admin: 02/01/24 08:52 Dose: 300 mg Hydroxyzine HCl (Hydroxyzine Hcl 25 Mg Tablet) 25 mg PO Q6H PRN PRN Reason: Anxiety Last Admin: 02/01/24 06:58 Dose: 25 mg Ibuprofen (Ibuprofen 800 Mg Tablet) 800 mg PO Q8H PRN PRN Reason: osteoarthritis pain Last Admin: 01/31/24 20:05 Dose: 800 mg Lidocaine (Lidocaine 4 % Patch Adh..Patch) 1 patch TRANSDERMA DAILY [facility]; Protocol Last Admin: 02/01/24 08:53 Dose: 1 patch Lorazepam (Lorazepam 0.5 Mg Tablet) 0.5 mg PO TID PRN PRN Reason: anxiety not responding to Vistaril Last Admin: 02/01/24 06:57 Dose: 0.5 mg Magnesium Hydroxide (Milk Of Magnesia 30 Ml Oral.Susp) 30 ml PO DAILY PRN PRN Reason: Constipation Last Admin: 01/31/24 10:44 Dose: 30 ml Methadone HCl (Methadone Hcl 20 Mg/2 Ml Oral.Conc) 120 mg PO DAILY@0800 [facility] Last Admin: 02/01/24 08:01 Dose: 120 mg Multivitamins/Vitamin C (Multivitamin Tablet) 1 tab PO DAILY [facility] Last Admin: 02/01/24 08:52 Dose: 1 tab Nicotine (Nicotine 21 Mg Patch.Td24) 21 mg TRANSDERMA DAILY PRN PRN Reason: smoking cessation Last Admin: 02/01/24 08:55 Dose: 21 mg Nicotine Polacrilex (Nicotine Polacrilex 2 Mg Gum) 4 mg BUCCAL Q2H PRN PRN Reason: Nicotine Cravings Last Admin: 01/31/24 20:05 Dose: 4 mg Olanzapine (Olanzapine 5 Mg Tablet) 5 mg PO TID PRN PRN Reason: agitation Last Admin: 01/31/24 15:47 Dose: 5 mg Olanzapine (Olanzapine 10 Mg Tablet) 20 mg PO BEDTIME [facility] Last Admin: 01/31/24 20:04 Dose: 20 mg Thiamine HCl (Thiamine Hcl 100 Mg Tablet) 100 mg PO DAILY [facility] Last Admin: 02/01/24 08:52 Dose: 100 mg Trazodone HCl (Trazodone Hcl 50 Mg Tablet) 50 mg PO BEDTIME MRX1 PRN PRN Reason: Insomnia Last Admin: 01/31/24 20:05 Dose: 50 mg Home Medications ?Medication ?Instructions ?Recorded ?Confirmed ?Last Taken ?Type hydroxyzine pamoate 50 mg capsule 50 mg PO TID PRN Anxiety 01/19/24 01/19/24 Unknown History lidocaine 4 % topical patch 1 patch topical DAILY PRN Pain, 01/19/24 01/19/24 Unknown History (Lidocaine Pain Relief) Moderate olanzapine 10 mg tablet (Zyprexa) 10 mg PO BEDTIME 01/19/24 01/19/24 Unknown History trazodone 150 mg tablet 150 mg PO BEDTIME 01/19/24 01/19/24 Unknown History methadone 110 mg PO DAILY 01/20/24 01/20/24 01/19/24 09:00 History Physical Exam Vital Signs: Vital Signs: Last Vital Signs Temp 96.9 F 02/01/24 08:16 Pulse 105 H 02/01/24 08:16 Resp 16 02/01/24 08:16 BP 138/84 02/01/24 08:16 Pulse Ox 91 L 02/01/24 08:16 O2 Del Method Room Air 02/01/24 08:16 BMI result Body Mass Index 31.6 Neuro: Other: He is alert and awake with normal spontaneity of speech fluency comprehension and flat affect. Face is symmetrical. Visual jensen are full. There is no obvious focal arm or leg weakness. Gait is cautious. Speech is normal. Deep tendon reflexes are trace to absent. Results Labs 01/20/24 08:49 Labs: EEG revealed mild left temporal irritability. CT scan of brain revealed mild microvascular ischemic changes. Assessment and Plan (1) Seizure disorder: Status: Acute 53 years old man with underlying history of alcohol and cocaine abuse, which put him at risk for seizure disorder, has mild microvascular ischemic changes of brain and reported episodes of sudden jerks affecting his old body. Witnessed is account was not available for his seizure-like symptoms. His EEG revealed mild left temporal irritability. My recommendation is to put him on an antiepileptic of a kind that could help him with mood disorder. In this area, lamotrigine, Depakote, or oxcarbazepine can be tried. He should avoid driving at least for few months. Procedures Date of Service Date of Service: 02/01/24
[2024-02-01] MEDS: OLANZapine 5 MG TABLET PO (12:04)
--- NOTE | 2024-02-01 16:04 | HO.PSYCHPN ---
Subjective Subjective Date of Service: 02/01/24 Reason For Visit: Depression Subjective Notes: Conditional Voluntary Healthcare Proxy: No Guardianship: No Medical Problems Affecting Mental Status: No Interim History: Methadone titration over the weekend to 120 mg. Pt has been seen by neurology who concurs with Valproate use Pt is asking what he can do to help facilitate his admission to [facility]. I can work there if they have a need . I am willing to work . Medication Compliance: Yes Side effects from medications: No Attending Groups: Intermittent Review of Systems Acute medical concerns: No Mental Status Exam Mental Status Exam Patient Appearance: Appropriate Patient Orientation: Person, Place, Time and Situation Level of Consciousness: Alert Patient Behavior: Appropriate, Talkative, Cooperative and Good Eye Contact Mood Description: Flat Affect Description: Flat Patient Cognition Impaired: No Ability to Follow Directions: Fair Speech Pattern: Spontaneous Speech Memory Description: Episodic Impaired Thought Process: Intact Judgement: Good Judgement and Insight: Impaired Diagnostics Vital Signs (24Hr): Vital Signs - 24 hr 01/31/24 20:00 02/01/24 08:16 Temperature 97.3 F 96.9 F Pulse Rate 100 105 H Respiratory Rate 17 16 Blood Pressure 135/63 138/84 Pulse Oximetry 93 91 L Oxygen Delivery Method Room Air Room Air BMI result Body Mass Index 31.6 Labs 01/20/24 08:49 Imaging Radiology Impressions: ITS Impressions Knee X-Ray 01/21/24 17:40 IMPRESSION: Moderate to severe lateral as well as mild medial and patellofemoral compartment osteoarthritis. Electronically signed by: Adam Maria MD 01/22/2024 09:44 AM EDT RP Medications Medications Current Medications Acetaminophen (Acetaminophen 325 Mg Tablet) 650 mg PO Q6H PRN PRN Reason: Headache/Pain Mild Scale (1-3) Last Admin: 01/31/24 20:05 Dose: 650 mg Al Hydroxide/Mg Hydroxide (Magnesium Hydrox/Alum Hydrox 30 Ml Oral.Susp) 30 ml PO Q6H PRN PRN Reason: Heartburn/Nausea Benzocaine (Benzocaine 20 % Oral Gel 9 Gm Tube) 1 appl MUCOUS MEM QID PRN; Protocol PRN Reason: mouth discomfort Last Admin: 01/29/24 08:55 Dose: 1 appl Divalproex Sodium (Divalproex Sodium 500 Mg Tablet.) 500 mg PO BID [facility] Last Admin: 02/01/24 08:52 Dose: 500 mg Folic Acid (Folic Acid 1 Mg Tablet) 1 mg PO DAILY [facility] Last Admin: 02/01/24 08:52 Dose: 1 mg Gabapentin (Gabapentin 300 Mg Capsule) 300 mg PO TID [facility] Last Admin: 02/01/24 14:51 Dose: 300 mg Hydroxyzine HCl (Hydroxyzine Hcl 25 Mg Tablet) 25 mg PO Q6H PRN PRN Reason: Anxiety Last Admin: 02/01/24 06:58 Dose: 25 mg Ibuprofen (Ibuprofen 800 Mg Tablet) 800 mg PO Q8H PRN PRN Reason: osteoarthritis pain Last Admin: 01/31/24 20:05 Dose: 800 mg Lidocaine (Lidocaine 4 % Patch Adh..Patch) 1 patch TRANSDERMA DAILY [facility]; Protocol Last Admin: 02/01/24 08:53 Dose: 1 patch Lorazepam (Lorazepam 0.5 Mg Tablet) 0.5 mg PO TID PRN PRN Reason: anxiety not responding to Vistaril Last Admin: 02/01/24 06:57 Dose: 0.5 mg Magnesium Hydroxide (Milk Of Magnesia 30 Ml Oral.Susp) 30 ml PO DAILY PRN PRN Reason: Constipation Last Admin: 01/31/24 10:44 Dose: 30 ml Methadone HCl (Methadone Hcl 20 Mg/2 Ml Oral.Conc) 120 mg PO DAILY@0800 [facility] Last Admin: 02/01/24 08:01 Dose: 120 mg Multivitamins/Vitamin C (Multivitamin Tablet) 1 tab PO DAILY [facility] Last Admin: 02/01/24 08:52 Dose: 1 tab Nicotine (Nicotine 21 Mg Patch.Td24) 21 mg TRANSDERMA DAILY PRN PRN Reason: smoking cessation Last Admin: 02/01/24 08:55 Dose: 21 mg Nicotine Polacrilex (Nicotine Polacrilex 2 Mg Gum) 4 mg BUCCAL Q2H PRN PRN Reason: Nicotine Cravings Last Admin: 01/31/24 20:05 Dose: 4 mg Olanzapine (Olanzapine 5 Mg Tablet) 5 mg PO TID PRN PRN Reason: agitation Last Admin: 02/01/24 12:04 Dose: 5 mg Olanzapine (Olanzapine 10 Mg Tablet) 20 mg PO BEDTIME [facility] Last Admin: 01/31/24 20:04 Dose: 20 mg Thiamine HCl (Thiamine Hcl 100 Mg Tablet) 100 mg PO DAILY [facility] Last Admin: 02/01/24 08:52 Dose: 100 mg Trazodone HCl (Trazodone Hcl 50 Mg Tablet) 50 mg PO BEDTIME MRX1 PRN PRN Reason: Insomnia Last Admin: 01/31/24 20:05 Dose: 50 mg Allergies Allergies Allergy/AdvReac Type Severity Reaction Status Date / Time No Known Allergies Allergy Verified 12/16/23 05:13 Assessment & Plan Assessment & Plan (1) Severe recurrent major depression with psychotic features: Status: Acute Code(s): F33.3 - Major depressive disorder, recurrent, severe with psychotic symptoms (2) Alcohol use disorder, severe, dependence: Status: Acute Code(s): F10.20 - Alcohol dependence, uncomplicated (3) Opioid use disorder, severe, on maintenance therapy: Status: Acute Code(s): F11.20 - Opioid dependence, uncomplicated (4) Cocaine use disorder: Status: Acute Code(s): F14.10 - Cocaine abuse, uncomplicated (5) Homeless: Status: Acute Code(s): Z59.00 - Homelessness unspecified Plan Recurrent Major Depression Recurrent with psychotic features, Alcohol, Opiate, Cocaine Use Disorder, Homeless Individual. Plan: Admit, CV, 15 minute checks Collateral contact Continue Gabapentin, Olanzapine ?Naltrexone trial Alcohol Detox protocol Continue Methadone ?CSS for discharge planning 01/21- Decrease Lorazepam to 0.5 mg tid Ortho Eval L knee Walker to help support pt with knee pain. 01/22: Continue current management and treatment plan. 01/23: Continue current management and treatment plan. Ativan PRN instead of scheduled. 01/25: EEG Depakote 500 mg bid Ibuprofen 800 mg q8h prn arthritis pain 01/28: Compression Stockings for added ankle support Neuro consult-EEG positive for seizure d/o Continue Depakote Increase Olanzapine to 20 mg HS 01/29 olanzapine recently increased; will leave medication regimen as is for now continue current treatment plan 01/30 continue current treatment plan however will increase methadone to 120 mg 01/31 continue current plan. pt awaiting word about being accepted for further treatment. Reason for continued inpatient stay Substantial Risk for: rapid decompensation Time Spent With Patient Time: Total time managing care of this patient today ____ minutes.
[2024-02-01 20:00] VITALS: BP 162/90; PULSE 106; TEMP 36.4; O2SAT 93
[2024-02-01] MEDS: OLANZapine 10 MG TABLET 20 MG PO (20:26)
[2024-02-01] MEDS: Ibuprofen 800 MG TABLET PO (20:26)
[2024-02-01] MEDS: traZODone HCL 50 MG TABLET PO ×2 (20:27→21:53)
[2024-02-01] MEDS: Acetaminophen 325 MG TABLET 650 MG PO (21:55)
[2024-02-02] MEDS: methADONE HCl 20 MG/2 ML ORAL.CONC 120 MG PO (07:41)
[2024-02-02 07:55] VITALS: BP 144/80; PULSE 88; RESP 18; TEMP 36.6; O2SAT 98
[2024-02-02] MEDS: Divalproex Sodium 500 MG TABLET.DR PO ×2 (08:39→20:04)
[2024-02-02] MEDS: Thiamine HCL 100 MG TABLET PO (08:39)
[2024-02-02] MEDS: Gabapentin 300 MG CAPSULE PO ×3 (08:39→20:04)
[2024-02-02] MEDS: Multivitamin TABLET 1 TAB PO (08:39)
[2024-02-02] MEDS: Folic Acid 1 MG TABLET PO (08:39)
--- NOTE | 2024-02-02 09:54 | P.PNPSI_ITS ---
Subjective Subjective Date of Service: 02/02/24 Reason For Visit: Depression Subjective Notes: Conditional Voluntary Healthcare Proxy: No Guardianship: No Medical Problems Affecting Mental Status: No Interim History: Met with pt and Cj WARREN to review [facility] application progress, plan to discharge for 02/04 and to discuss alternative plans if [facility] did not accept pt for ongoing treatment. Longterm placement was discussed, pt will contact [facility] team as they are familiar with him to assess resources as well. Pt reports improvement in mood, still with hope that he may be able to continue treatment with [facility]. Medication Compliance: Yes Side effects from medications: No Attending Groups: Yes Review of Systems Acute medical concerns: No Medical Review of Systems: unchanged Review of Systems Review of Systems Yes all other systems are reviewed and are negative Mental Status Exam Mental Status Exam Patient Appearance: Appropriate Patient Orientation: Person, Place, Time and Situation Level of Consciousness: Alert Patient Behavior: Appropriate, Talkative, Cooperative and Good Eye Contact Mood Description: Appropriate Affect Description: Appropriate Patient Cognition Impaired: No Ability to Follow Directions: Good Speech Pattern: Spontaneous Speech Memory Description: Episodic Impaired Hallucinations: None Delusions: Not Present Thought Process: Intact Judgement: Good Diagnostics Vital Signs (24Hr): Vital Signs - 24 hr 02/01/24 20:00 02/02/24 07:55 Temperature 97.6 F 97.8 F Pulse Rate 106 H 88 Respiratory Rate 18 Blood Pressure 162/90 H 144/80 H Pulse Oximetry 93 98 Oxygen Delivery Method Room Air Room Air BMI result Body Mass Index 31.6 Labs 01/20/24 08:49 Imaging Radiology Impressions: ITS Impressions Knee X-Ray 01/21/24 17:40 IMPRESSION: Moderate to severe lateral as well as mild medial and patellofemoral compartment osteoarthritis. Electronically signed by: Adam Maria MD 01/22/2024 09:44 AM EDT RP Medications Medications Current Medications Acetaminophen (Acetaminophen 325 Mg Tablet) 650 mg PO Q6H PRN PRN Reason: Headache/Pain Mild Scale (1-3) Last Admin: 02/01/24 21:55 Dose: 650 mg Al Hydroxide/Mg Hydroxide (Magnesium Hydrox/Alum Hydrox 30 Ml Oral.Susp) 30 ml PO Q6H PRN PRN Reason: Heartburn/Nausea Benzocaine (Benzocaine 20 % Oral Gel 9 Gm Tube) 1 appl MUCOUS MEM QID PRN; Protocol PRN Reason: mouth discomfort Last Admin: 01/29/24 08:55 Dose: 1 appl Divalproex Sodium (Divalproex Sodium 500 Mg Tablet.Dr) 500 mg PO BID [facility] Last Admin: 02/02/24 08:39 Dose: 500 mg Folic Acid (Folic Acid 1 Mg Tablet) 1 mg PO DAILY [facility] Last Admin: 02/02/24 08:39 Dose: 1 mg Gabapentin (Gabapentin 300 Mg Capsule) 300 mg PO TID [facility] Last Admin: 02/02/24 08:39 Dose: 300 mg Hydroxyzine HCl (Hydroxyzine Hcl 25 Mg Tablet) 25 mg PO Q6H PRN PRN Reason: Anxiety Last Admin: 02/01/24 20:26 Dose: 25 mg Ibuprofen (Ibuprofen 800 Mg Tablet) 800 mg PO Q8H PRN PRN Reason: osteoarthritis pain Last Admin: 02/01/24 20:26 Dose: 800 mg Lidocaine (Lidocaine 4 % Patch Adh..Patch) 1 patch TRANSDERMA DAILY [facility]; Protocol Last Admin: 02/01/24 08:53 Dose: 1 patch Lorazepam (Lorazepam 0.5 Mg Tablet) 0.5 mg PO TID PRN PRN Reason: anxiety not responding to Vistaril Last Admin: 02/01/24 06:57 Dose: 0.5 mg Magnesium Hydroxide (Milk Of Magnesia 30 Ml Oral.Susp) 30 ml PO DAILY PRN PRN Reason: Constipation Last Admin: 01/31/24 10:44 Dose: 30 ml Methadone HCl (Methadone Hcl 20 Mg/2 Ml Oral.Conc) 120 mg PO DAILY@0800 [facility] Last Admin: 02/02/24 07:41 Dose: 120 mg Multivitamins/Vitamin C (Multivitamin Tablet) 1 tab PO DAILY [facility] Last Admin: 02/02/24 08:39 Dose: 1 tab Nicotine (Nicotine 21 Mg Patch.Td24) 21 mg TRANSDERMA DAILY PRN PRN Reason: smoking cessation Last Admin: 02/01/24 08:55 Dose: 21 mg Nicotine Polacrilex (Nicotine Polacrilex 2 Mg Gum) 4 mg BUCCAL Q2H PRN PRN Reason: Nicotine Cravings Last Admin: 01/31/24 20:05 Dose: 4 mg Olanzapine (Olanzapine 5 Mg Tablet) 5 mg PO TID PRN PRN Reason: agitation Last Admin: 02/01/24 12:04 Dose: 5 mg Olanzapine (Olanzapine 10 Mg Tablet) 20 mg PO BEDTIME [facility] Last Admin: 02/01/24 20:26 Dose: 20 mg Thiamine HCl (Thiamine Hcl 100 Mg Tablet) 100 mg PO DAILY [facility] Last Admin: 02/02/24 08:39 Dose: 100 mg Trazodone HCl (Trazodone Hcl 50 Mg Tablet) 50 mg PO BEDTIME MRX1 PRN PRN Reason: Insomnia Last Admin: 02/01/24 21:53 Dose: 50 mg Allergies Allergies Allergy/AdvReac Type Severity Reaction Status Date / Time No Known Allergies Allergy Verified 12/16/23 05:13 Assessment & Plan Assessment & Plan (1) Severe recurrent major depression with psychotic features: Status: Acute Code(s): F33.3 - Major depressive disorder, recurrent, severe with psychotic symptoms (2) Alcohol use disorder, severe, dependence: Status: Acute Code(s): F10.20 - Alcohol dependence, uncomplicated (3) Opioid use disorder, severe, on maintenance therapy: Status: Acute Code(s): F11.20 - Opioid dependence, uncomplicated (4) Cocaine use disorder: Status: Acute Code(s): F14.10 - Cocaine abuse, uncomplicated (5) Homeless: Status: Acute Code(s): Z59.00 - Homelessness unspecified Plan Recurrent Major Depression Recurrent with psychotic features, Alcohol, Opiate, Cocaine Use Disorder, Homeless Individual. Plan: Admit, CV, 15 minute checks Collateral contact Continue Gabapentin, Olanzapine ?Naltrexone trial Alcohol Detox protocol Continue Methadone ?CSS for discharge planning 01/21- Decrease Lorazepam to 0.5 mg tid Ortho Eval L knee Walker to help support pt with knee pain. 01/22: Continue current management and treatment plan. 01/23: Continue current management and treatment plan. Ativan PRN instead of scheduled. 01/25: EEG Depakote 500 mg bid Ibuprofen 800 mg q8h prn arthritis pain 01/28: Compression Stockings for added ankle support Neuro consult-EEG positive for seizure d/o Continue Depakote Increase Olanzapine to 20 mg HS 01/29 olanzapine recently increased; will leave medication regimen as is for now continue current treatment plan 01/30 continue current treatment plan however will increase methadone to 120 mg 02/01 Continue treatment. Reason for continued inpatient stay Substantial Risk for: rapid decompensation Time Spent With Patient Time: Total time managing care of this patient today ____ minutes.
[2024-02-02] MEDS: Nicotine 21 MG PATCH.TD24 TRANSDERMA (10:17)
[2024-02-02] MEDS: Lidocaine 4 % Patch ADH..PATCH 1 PATCH TRANSDERMA (10:17)
[2024-02-02] MEDS: hydrOXYzine HCL 25 MG TABLET PO (14:01)
[2024-02-02] MEDS: LORazepam 0.5 MG TABLET PO ×2 (15:47→23:50)
[2024-02-02] MEDS: Ibuprofen 800 MG TABLET PO (15:49)
[2024-02-02 19:41] VITALS: BP 130/71; PULSE 97; TEMP 36.2; O2SAT 97
[2024-02-02] MEDS: OLANZapine 10 MG TABLET 20 MG PO (20:04)
[2024-02-02] MEDS: traZODone HCL 50 MG TABLET PO ×2 (20:04→23:50)
[2024-02-03] MEDS: methADONE HCl 20 MG/2 ML ORAL.CONC 120 MG PO (07:46)
[2024-02-03 08:00] VITALS: BP 159/79; PULSE 97; RESP 95; TEMP 36.9; O2SAT 95
[2024-02-03] MEDS: Gabapentin 300 MG CAPSULE PO ×3 (08:22→20:40)
[2024-02-03] MEDS: Divalproex Sodium 500 MG TABLET.DR PO ×2 (08:22→20:39)
[2024-02-03] MEDS: Folic Acid 1 MG TABLET PO (08:22)
[2024-02-03] MEDS: Thiamine HCL 100 MG TABLET PO (08:22)
[2024-02-03] MEDS: Multivitamin TABLET 1 TAB PO (08:22)
--- NOTE | 2024-02-03 10:35 | P.PNPSI_ITS ---
Subjective Subjective Date of Service: 02/03/24 Reason For Visit: Depression Subjective Notes: Conditional Voluntary Healthcare Proxy: No Guardianship: No Medical Problems Affecting Mental Status: No Interim History: Pt is accepted to [facility] per team for 02/03. Questions arose regarding response to internal stimuli which he spoke of during his intake with [facility] team. Upon further review, pt reports these perceptual alterations have been with him for several years, they have assisted him during difficult times during incarceration and have kept me alert and kept my mind active. He discussed some thoughts of these symptoms being his mother and grandmother, who have , supporting him through difficult times. These reported sx he states are positive and provide him comfort. They have not distracted him from daily activities but have helped me to cope . Medication Compliance: Yes Side effects from medications: No Attending Groups: Yes Review of Systems Acute medical concerns: No Medical Review of Systems: unchanged Review of Systems Review of Systems Yes all other systems are reviewed and are negative Mental Status Exam Mental Status Exam Patient Appearance: Appropriate Patient Orientation: Person, Place, Time and Situation Level of Consciousness: Alert Patient Behavior: Appropriate, Talkative, Cooperative and Good Eye Contact Mood Description: Appropriate Affect Description: Appropriate Patient Cognition Impaired: No Ability to Follow Directions: Good Speech Pattern: Spontaneous Speech Memory Description: Episodic Impaired Hallucinations: None Delusions: Not Present Thought Process: Intact Judgement: Good Diagnostics Vital Signs (24Hr): Vital Signs - 24 hr 02/02/24 19:41 02/03/24 08:00 Temperature 97.1 F 98.5 F Pulse Rate 97 97 Respiratory Rate 95 H Blood Pressure 130/71 159/79 H Pulse Oximetry 97 95 Oxygen Delivery Method Room Air Room Air BMI result Body Mass Index 31.6 Labs 01/20/24 08:49 Imaging Radiology Impressions: ITS Impressions Knee X-Ray 01/21/24 17:40 IMPRESSION: Moderate to severe lateral as well as mild medial and patellofemoral compartment osteoarthritis. Electronically signed by: Adam Maria MD 01/22/2024 09:44 AM EDT Medications Medications Current Medications Acetaminophen (Acetaminophen 325 Mg Tablet) 650 mg PO Q6H PRN PRN Reason: Headache/Pain Mild Scale (1-3) Last Admin: 02/01/24 21:55 Dose: 650 mg Al Hydroxide/Mg Hydroxide (Magnesium Hydrox/Alum Hydrox 30 Ml Oral.Susp) 30 ml PO Q6H PRN PRN Reason: Heartburn/Nausea Benzocaine (Benzocaine 20 % Oral Gel 9 Gm Tube) 1 appl MUCOUS MEM QID PRN; Protocol PRN Reason: mouth discomfort Last Admin: 01/29/24 08:55 Dose: 1 appl Divalproex Sodium (Divalproex Sodium 500 Mg Tablet.Dr) 500 mg PO BID [facility] Last Admin: 02/03/24 08:22 Dose: 500 mg Folic Acid (Folic Acid 1 Mg Tablet) 1 mg PO DAILY [facility] Last Admin: 02/03/24 08:22 Dose: 1 mg Gabapentin (Gabapentin 300 Mg Capsule) 300 mg PO TID [facility] Last Admin: 02/03/24 08:22 Dose: 300 mg Hydroxyzine HCl (Hydroxyzine Hcl 25 Mg Tablet) 25 mg PO Q6H PRN PRN Reason: Anxiety Last Admin: 02/02/24 14:01 Dose: 25 mg Ibuprofen (Ibuprofen 800 Mg Tablet) 800 mg PO Q8H PRN PRN Reason: osteoarthritis pain Last Admin: 02/02/24 15:49 Dose: 800 mg Lidocaine (Lidocaine 4 % Patch Adh..Patch) 1 patch TRANSDERMA DAILY [facility]; Protocol Last Admin: 02/03/24 08:23 Dose: Not Given Lorazepam (Lorazepam 0.5 Mg Tablet) 0.5 mg PO TID PRN PRN Reason: anxiety not responding to Vistaril Last Admin: 02/02/24 23:50 Dose: 0.5 mg Magnesium Hydroxide (Milk Of Magnesia 30 Ml Oral.Susp) 30 ml PO DAILY PRN PRN Reason: Constipation Last Admin: 01/31/24 10:44 Dose: 30 ml Methadone HCl (Methadone Hcl 20 Mg/2 Ml Oral.Conc) 120 mg PO DAILY@0800 [facility] Last Admin: 02/03/24 07:46 Dose: 120 mg Multivitamins/Vitamin C (Multivitamin Tablet) 1 tab PO DAILY [facility] Last Admin: 02/03/24 08:22 Dose: 1 tab Nicotine (Nicotine 21 Mg Patch.Td24) 21 mg TRANSDERMA DAILY PRN PRN Reason: smoking cessation Last Admin: 02/02/24 10:17 Dose: 21 mg Nicotine Polacrilex (Nicotine Polacrilex 2 Mg Gum) 4 mg BUCCAL Q2H PRN PRN Reason: Nicotine Cravings Last Admin: 01/31/24 20:05 Dose: 4 mg Olanzapine (Olanzapine 5 Mg Tablet) 5 mg PO TID PRN PRN Reason: agitation Last Admin: 02/01/24 12:04 Dose: 5 mg Olanzapine (Olanzapine 10 Mg Tablet) 20 mg PO BEDTIME [facility] Last Admin: 02/02/24 20:04 Dose: 20 mg Thiamine HCl (Thiamine Hcl 100 Mg Tablet) 100 mg PO DAILY [facility] Last Admin: 02/03/24 08:22 Dose: 100 mg Trazodone HCl (Trazodone Hcl 50 Mg Tablet) 50 mg PO BEDTIME MRX1 PRN PRN Reason: Insomnia Last Admin: 02/02/24 23:50 Dose: 50 mg Allergies Allergies Allergy/AdvReac Type Severity Reaction Status Date / Time No Known Allergies Allergy Verified 12/16/23 05:13 Assessment & Plan Assessment & Plan (1) Severe recurrent major depression with psychotic features: Status: Acute Code(s): F33.3 - Major depressive disorder, recurrent, severe with psychotic symptoms (2) Alcohol use disorder, severe, dependence: Status: Acute Code(s): F10.20 - Alcohol dependence, uncomplicated (3) Opioid use disorder, severe, on maintenance therapy: Status: Acute Code(s): F11.20 - Opioid dependence, uncomplicated (4) Cocaine use disorder: Status: Acute Code(s): F14.10 - Cocaine abuse, uncomplicated (5) Homeless: Status: Acute Code(s): Z59.00 - Homelessness unspecified Plan Recurrent Major Depression Recurrent with psychotic features, Alcohol, Opiate, Cocaine Use Disorder, Homeless Individual. Plan: Admit, CV, 15 minute checks Collateral contact Continue Gabapentin, Olanzapine ?Naltrexone trial Alcohol Detox protocol Continue Methadone ?CSS for discharge planning 01/21- Decrease Lorazepam to 0.5 mg tid Ortho Eval L knee Walker to help support pt with knee pain. 01/22: Continue current management and treatment plan. 01/23: Continue current management and treatment plan. Ativan PRN instead of scheduled. 01/25: EEG Depakote 500 mg bid Ibuprofen 800 mg q8h prn arthritis pain 01/28: Compression Stockings for added ankle support Neuro consult-EEG positive for seizure d/o Continue Depakote Increase Olanzapine to 20 mg HS 01/29 olanzapine recently increased; will leave medication regimen as is for now continue current treatment plan 01/30 continue current treatment plan however will increase methadone to 120 mg 02/01 Continue treatment. 02/02 Discharge to [facility] 02/03. Reason for continued inpatient stay Substantial Risk for: stable for discharge Time Spent With Patient Time: Total time managing care of this patient today ____ minutes.
[2024-02-03] MEDS: hydrOXYzine HCL 25 MG TABLET PO ×2 (11:02→18:35)
[2024-02-03] MEDS: OLANZapine 5 MG TABLET PO (11:02)
[2024-02-03] MEDS: Nicotine Polacrilex 2 MG GUM 4 MG BUCCAL (12:01)
[2024-02-03] MEDS: Ibuprofen 800 MG TABLET PO (15:00)
[2024-02-03] MEDS: Lidocaine 4 % Patch ADH..PATCH 1 PATCH TRANSDERMA (15:26)
[2024-02-03] MEDS: LORazepam 0.5 MG TABLET PO ×2 (15:28→20:39)
[2024-02-03] MEDS: Acetaminophen 325 MG TABLET 650 MG PO (18:35)
[2024-02-03 19:45] VITALS: BP 135/87; PULSE 94; RESP 16; TEMP 36.4; O2SAT 100
[2024-02-03] MEDS: OLANZapine 10 MG TABLET 20 MG PO (20:40)
[2024-02-03] MEDS: traZODone HCL 50 MG TABLET PO (20:40)
[2024-02-04] MEDS: Ibuprofen 800 MG TABLET PO ×2 (00:49→08:56)
[2024-02-04] MEDS: hydrOXYzine HCL 25 MG TABLET PO ×2 (00:49→11:44)
[2024-02-04] MEDS: Acetaminophen 325 MG TABLET 650 MG PO (00:49)
[2024-02-04] MEDS: traZODone HCL 50 MG TABLET PO (00:49)
[2024-02-04] MEDS: methADONE HCl 20 MG/2 ML ORAL.CONC 120 MG PO (07:53)
[2024-02-04 08:00] VITALS: BP 145/66; PULSE 100; RESP 16; TEMP 36.9; O2SAT 94
[2024-02-04] MEDS: Multivitamin TABLET 1 TAB PO (08:56)
[2024-02-04] MEDS: Thiamine HCL 100 MG TABLET PO (08:56)
[2024-02-04] MEDS: Divalproex Sodium 500 MG TABLET.DR PO (08:56)
[2024-02-04] MEDS: Gabapentin 300 MG CAPSULE PO (08:56)
[2024-02-04] MEDS: Folic Acid 1 MG TABLET PO (08:56)
--- NOTE | 2024-02-04 15:51 | PM.PSYDC ---
DS: Providers Provider Date of Service: 02/04/24 Date of admission: 01/19/24 17:59 Date of discharge: 02/04/24 Primary care physician: None Physician Admitting clinician: Sruthi Turner Attending physician on admission: Salo Kincaid Consults: 01/19/24 18:44 Consult to Hospitalist Routine Comment: Consulting Provider: Hospitalist Reason For Exam: admission physical 01/20/24 04:01 Addiction Medicine ONCE Consulting Provider: Addiction Covering Reason for consultation: + HX of GERRY. help seeking 01/22/24 17:47 Consult to Orthopedics Routine Consulting Provider: [facility] Reason for consultation: L [id number]-unstable gait, buckling when wt is put on it 01/29/24 16:49 Consult to Neurology Routine Consulting Provider: [facility] Reason for consultation: Seizure d/o-Depakote initiated- ? added meds/interventions Attending physician on discharge: Salo Kincaid Discharging clinician: Sruthi Turner DS: Diagnosis Discharge Diagnosis (1) Severe recurrent major depression with psychotic features: Status: Acute (2) Alcohol use disorder, severe, dependence: Status: Acute (3) Opioid use disorder, severe, on maintenance therapy: Status: Acute (4) Cocaine use disorder: Status: Acute (5) Homeless: Status: Acute DS: Medications Discharge Medications Home Medications: Previous Rx's ?Medication ?Instructions ?Recorded acetaminophen 325 mg tablet 650 mg (2 x 325 mg) PO Q6H PRN 02/03/24 Headache/Pain Mild Scale (1-3) #60 tabs benzocaine 20 % mucosal gel 1 appl mucous membrane QID PRN 02/03/24 (Anbesol (benzocaine) Maximum mouth discomfort #60 applicators Strength) divalproex 500 mg tablet,delayed 500 mg PO BID #60 tabs 02/03/24 release folic acid 1 mg tablet 1 mg PO DAILY #3 tabs 02/03/24 gabapentin 300 mg capsule 300 mg PO TID #90 caps 02/03/24 hydroxyzine HCl 25 mg tablet 25 mg PO Q6H PRN Anxiety #60 tabs 02/03/24 ibuprofen 800 mg tablet 800 mg PO Q8H PRN osteoarthritis 02/03/24 pain #90 tabs lidocaine 4 % topical patch 1 patch transdermal DAILY #30 ea 02/03/24 (Lidocaine Pain Relief) methadone 10 mg/mL oral 120 mg (12 mL) PO DAILY@0800 #0 mL 02/03/24 concentrate (Methadose) multivitamin (Daily-Sanjeev tablet) 1 tab PO DAILY #30 tabs 02/03/24 nicotine (polacrilex) 2 mg gum 4 mg buccal Q2H PRN Nicotine 02/03/24 Cravings #100 ea nicotine 21 mg/24 hr daily 21 mg transdermal DAILY PRN 02/03/24 transdermal patch smoking cessation #30 ea olanzapine 10 mg tablet 20 mg (2 x 10 mg) PO BEDTIME #60 02/03/24 tabs olanzapine 5 mg tablet 5 mg PO TID PRN agitation #60 tabs 02/03/24 thiamine mononitrate (vit B1) 100 100 mg PO DAILY #30 tabs 02/03/24 mg tablet trazodone 50 mg tablet 50 mg PO BEDTIME MRX1 PRN Insomnia 02/03/24 #60 tabs walker (Ultra-Light Rollator misc) #1 ea 02/04/24 Mental Status Exam Mental Status Exam Patient Appearance: Appropriate Patient Orientation: Person, Place, Time and Situation Level of Consciousness: Alert Patient Behavior: Appropriate, Talkative, Cooperative and Good Eye Contact Mood Description: Appropriate Affect Description: Appropriate Patient Cognition Impaired: No Ability to Follow Directions: Good Speech Pattern: Spontaneous Speech Memory Description: Episodic Impaired Hallucinations: None Delusions: Not Present Thought Process: Intact Judgement: Good Data Imaging Diagnostic Imaging Impressions Knee X-Ray 01/21/24 17:40 IMPRESSION: Moderate to severe lateral as well as mild medial and patellofemoral compartment osteoarthritis. Electronically signed by: Adam Maria MD 01/22/2024 09:44 AM EDT DS: Summary Hospital Course Hospital Course: Admission to adult psychiatry for exacerbation of PTSD, Recurrent Major Depression with Psychotic Features and polysubstance use. Pt reports chronic homelessness. Pt reported SI/HI due to a recent discharge from a local facility. He reports he was sent with no discharge plan and could not secure treatment. Medications were evaluated and adjusted. Pt was consulted by the hospitalist group, addiction medicine, neurology, orthopedics. Treatment plans were established for seizures, addiction and ongoing ankle pain/knee pain secondary to a previous injury. Pt was able to discuss hearing voices. He reported a significant time incarcerated and voices had helped him to cope-he felt they were his mother and grandmother offering him support and encouragement. He reported these were not a distressful symptom. Pt was accepted to [facility] and will have out patient services with [facility]. He was satisifed with this plan and tranferred for ongoing treatment on 02/04/24. Status at Discharge Functional status at discharge: independent ambulation Overall status at discharge: patient is progressing back to baseline Time Spent with Patient Time attestation: Total time managing care of this patient today ____ minutes. Time spent: Less than 30 minutes Discharge Plan Discharge Anticipated Discharge Date/Time: 02/04/24 12:00 Patient Disposition: Xfer Inpatient Rehab Fac Discharge Diagnosis: PTSD Recurrent Major Depression with Psychotic Features Opiate Use Disorder, Methadone maintenance Cocaine Use Disorder Alcohol Use Disorder Seizure Disorder Right Ankle Pain-Ongoing Homeless Referrals: [facility] [Other] - 02/04/24 2:00 pm (Patient accepted for admission to [facility] for substance use treatment.) [facility] [employer]: [facility]he[facility] (therapy) [Other] - 02/08/24 2:00 pm (Hospital discharge appointment Initial diagnostic valuation for therapy services. Appointment in person at [facility] in [place]) Amena Burrell: [facility] (psychiatry) [Other] - 03/09/24 9:00 am (Hospital Discharge Appointment Initial psychiatric medication evaluation by psychiatric provider Appointment in person at [facility] ) Physician,None [Primary Care Provider] - 1 Week Discharge Medications: New acetaminophen 325 mg Tablet 650 mg PO Q6H PRN (Reason: Headache/Pain Mild Scale (1-3)) Qty: 60 0RF lidocaine [Lidocaine Pain Relief] 4 % Adhesive Patch,Medicated 1 patch transdermal DAILY Qty: 30 0RF Protocol: Apply to: Apply to: R ankle trazodone 50 mg Tablet 50 mg PO BEDTIME MRX1 PRN (Reason: Insomnia) Qty: 60 0RF ibuprofen 800 mg Tablet 800 mg PO Q8H PRN (Reason: osteoarthritis pain) Qty: 90 0RF nicotine (polacrilex) 2 mg Gum 4 mg buccal Q2H PRN (Reason: Nicotine Cravings) Qty: 100 0RF olanzapine 5 mg Tablet 5 mg PO TID PRN (Reason: agitation) Qty: 60 0RF olanzapine 10 mg Tablet 20 mg PO BEDTIME Qty: 60 0RF divalproex 500 mg Tablet,Delayed Release (Dr/Ec) 500 mg PO BID Qty: 60 0RF nicotine 21 mg/24 hr Patch 24 Hour 21 mg transdermal DAILY PRN (Reason: smoking cessation) Qty: 30 0RF gabapentin 300 mg Capsule 300 mg PO TID Qty: 90 0RF folic acid 1 mg Tablet 1 mg PO DAILY Qty: 3 0RF hydroxyzine HCl 25 mg Tablet 25 mg PO Q6H PRN (Reason: Anxiety) Qty: 60 0RF methadone [Methadose] 10 mg/mL Concentrate 120 mg PO DAILY@0800 Qty: 0 0RF Rx Instructions: Partial Fill upon patient request. Anbesol (benzocaine) Max Str 20 % Gel 1 appl mucous membrane QID PRN (Reason: mouth discomfort) Qty: 60 0RF Protocol: Apply to: Apply to: mouth multivitamin [Daily-Sanjeev] Tablet 1 tab PO DAILY Qty: 30 0RF thiamine mononitrate (vit B1) 100 mg Tablet 100 mg PO DAILY Qty: 30 0RF (DME) Ultra-Light Rollator Misc See Rx Instructions .Route Qty: 1 0RF Rx Instructions: As directed Discontinued amoxicillin-pot clavulanate [Augmentin] 875-125 mg tablet 1 tab PO BID Qty: 20 0RF naproxen [Naprosyn] 500 mg tablet 500 mg PO BID Qty: 20 0RF trazodone 150 mg Tablet 150 mg PO BEDTIME lidocaine [Lidocaine Pain Relief] 4 % Adhesive Patch,Medicated 1 patch TOPICAL DAILY PRN (Reason: Pain, Moderate) hydroxyzine pamoate 50 mg Capsule 50 mg PO TID PRN (Reason: Anxiety) olanzapine [Zyprexa] 10 mg Tablet 10 mg PO BEDTIME methadone 110 mg PO DAILY Discharge Orders: Discharge Order (Routine); Ordered 02/04/24 Ordered By: Sruthi Turner Diet: Advance to usual diet Activity on Discharge: As tolerated Stand Alone Forms: Patient Portal Discharge page, Community Support Print Language: Croatian Care Plan Goals: Abstinence from Substances Mood and Behavioral Stabilization Health Concerns: Abstinence from Substances Mood and Behavioral Stabilization Plan of Treatment: Admission to [place] [place] for ongoing treatment Attend scheduled appointments Take medications as directed Assessment: Denies SI/HI/AH/VH. No sx of overt dulce or psychosis. Discharge Date/Time: 02/04/24 14:01
== END 2024-02-04 14:01 | DRG 751 ==
PROVIDERS: Admitting Provider Psychiatry & Neurology Psychiatry; Visit Provider Clinical Nurse Specialist Psychiatric/Mental Health, Adult
DX: F33.3 Major depressive disorder, recurrent, severe with psychotic symptoms (principal); R45.851 Suicidal ideations; R45.850 Homicidal ideations; G40.909 Epilepsy, unspecified, not intractable, without status epilepticus; F43.10 Post-traumatic stress disorder, unspecified; F17.210 Nicotine dependence, cigarettes, uncomplicated; F10.20 Alcohol dependence, uncomplicated; F14.10 Cocaine abuse, uncomplicated; F11.20 Opioid dependence, uncomplicated; Z59.02 Unsheltered homelessness; Z71.6 Tobacco abuse counseling; Z62.810 Personal history of physical and sexual abuse in childhood; Z79.899 Other long term (current) drug therapy
CPT/HCPCS: 36415; 73564; 80053; 80061; 83036; 84443; 95816

== ENCOUNTER → 2024-01-19 17:59 | Outpatient (BNV) | payer MEDICAID, SELFPAY | PROVIDERS: Admitting Provider Psychiatry & Neurology Psychiatry; Visit Provider Psychiatry & Neurology Neurology | DX: G40.909 Epilepsy, unspecified, not intractable, without status epilepticus (principal) | CPT/HCPCS: 99222 ==

== ENCOUNTER → 2024-01-19 17:59 | Outpatient (BNV) | payer OTHER, SELFPAY | PROVIDERS: Admitting Provider Psychiatry & Neurology Psychiatry; Visit Provider Clinical Nurse Specialist Psychiatric/Mental Health, Adult | DX: F33.3 Major depressive disorder, recurrent, severe with psychotic symptoms (principal); F14.10 Cocaine abuse, uncomplicated; F10.20 Alcohol dependence, uncomplicated; F11.20 Opioid dependence, uncomplicated; Z59.00 Homelessness unspecified | CPT/HCPCS: 99231; 99232 ==

== ENCOUNTER → 2024-01-19 17:59 | Outpatient (BNV) | payer MEDICAID, SELFPAY | PROVIDERS: Admitting Provider Psychiatry & Neurology Psychiatry; Visit Provider Physician Assistant | DX: Z00.8 Encounter for other general examination (principal); M25.571 Pain in right ankle and joints of right foot | CPT/HCPCS: 99222 ==